=== PATIENT | male | born 1940 | race Caucasian/White ===

== ENCOUNTER 2017-09-07 16:20 | Inpatient (IN) | payer OTHER ==
[~2017-09-07] VITALS: Ht 185.4 cm; Wt 115.2 kg
[~2017-09-07 16:20] MED LIST: ACETAMINOPHEN500 M4 PO; ALBUTEROL 3 ML3 ML INH; ALBUTEROL0.09 MG/A1 INH; ATORVASTATIN CA80 MG PO; AUGMENTIN 500-1 EACH PO; AUGMENTIN 875-1 EACH PO; AZITHROMYCIN500 M3 PO; B-1100 MG PO; CELEXA40 M1 PO; CELEXA40 MG PO; CIPRO500 M1 PO; COLACE100 MG PO; COUMADIN 5 MG TA5 MG PO; CYCLOBENZAPRINE5 M2 PO; DEEP SEA44 ML NASB; DELTASONE20 MG PO; DOCUSATE SOD100 MG PO; DOCUSATE SODIU100 M3 PO; FLAGYL500 MG PO; FLONASE ALLERG9.9 ML NASB; FLUNISOLIDE25 ML NASB; FUROSEMIDE20 MG PO; FUROSEMIDE40 MG PO; GOOD NEIGHBOR P44 ML NASB; GUAIFENESIN AC473 M2 PO; HYDROPHOR TOP; IMODIUM 2 MG. CA2 MG PO; LASIX20 M1 PO; LASIX40 MG PO; LIPITOR80 M1 PO; LOPERAMIDE2 M1 PO; LOPRESSOR50 M1 PO; LOPRESSOR50 MG PO; MACROBID 100 M100 MG PO; MEDROL4 M2 PO; METOPROLOL SUCC50 MG PO; METOPROLOL TART50 MG PO; MIRTAZAPINE30 M2 PO; MIRTAZAPINE30 MG PO; NASAREL 0.200 SPRAY/ NASB; NEBULIZER; Nebulizer machine; OXYCODONE5 MG PO; PRADAXA150 M1 PO; PRADAXA150 MG PO; PRADAXA75 M1 PO; PREDNISONE 20MG20 MG PO; PREDNISONE10 M2 PO; PREDNISONE50 M1 PO; PROAIR HFA8.5 GM INH; PROVENTIL HFA6.7 GM INH; SENNA8.6 M1 PO; SENNA8.6 M3 PO; SENOKOT NATURA8.6 MG PO; SYMBICORT 80-10.2 GM INH; SYMBICORT 80/4.1 PUF INH; Senokot S PO; TRAMADOL HCL50 M1 PO; TYLENOL WITH C1 EACH PO; TYLENOL325 M1 PO; ULTRAM(MONOGRAP50 MG PO; VIAGRA50 MG PO; VIBRAMYCIN100 MG PO; VITAMIN B-121000 MC3 PO; VITAMIN B121000 MC2 PO; VITAMIN E400 IU PO; ZITHROMAX250 M2 PO; ZOFRAN ODT4 MG PO; ZOFRAN4 M1 PO
--- NOTE | 2017-09-07 16:30 | ED GENERAL ADULT ---
History of Present Illness General Chief Complaint: Psychiatric Related Complaint Stated Complaint: SI Source: patient Exam Limitations: no limitations Vital Signs & Intake/Output Vital Signs & Intake/Output Vital Signs Date Time Temp Pulse Resp B/P B/P Pulse O2 O2 Flow FiO2 Mean Ox Delivery Rate 09/07 1833 97.6 54 20 122/70 96 Room Air 09/07 1624 96.2 68 16 172/100 98 Room Air Allergies Coded Allergies: aspirin (RELATED TO BEING ON WARFARIN 07/23/16) Reconcile Medications Acetaminophen (Tylenol) 325 MG TABLET 2 TAB PO Q6H PRN PAIN (Reported) Acetaminophen 500 MG TABLET 1 TAB PO Q4-6H PRN PAIN (Reported) Albuterol Sulfate (Proair Hfa) 8.5 GM HFA.AER.AD 1 PUF INH Q6H PRN SOB ( Reported) Atorvastatin Calcium (Lipitor) 80 MG TABLET 0.5 TAB PO QPM CHOLESTEROL ( Reported) Azithromycin (Zithromax) 250 MG TABLET 1 DP PO AD BRONCHITIS 2 the first day followed by 1 for days 2-5 Budesonide/Formoterol Fumarate (Symbicort 80-4.5 Mcg Inhaler) 10.2 GM HFA.AER.AD 2 PUF INH BID COPD (Reported) Citalopram Hydrobromide (Celexa) 40 MG TABLET 0.5 TAB PO DAILY DEPRESSION ( Reported) Codeine Phosphate/Guaifenesi (Guaifenesin AC Cough Syrup) 10 MG-100 MG/5 ML LIQUID 10 ML PO Q6HR PRN COUGH Cyanocobalamin (Vitamin B-12) 1,000 MCG TABLET 1 TAB PO DAILY SUPPLEMENT ( Reported) Dabigatran Etexilate Mesylate (Pradaxa 150 MG) 150 MG CAPSULE 1 CAP PO BID BLOOD THINNER (Reported) Docusate Sodium 100 MG CAPSULE 1 CAP PO BID PRN STOOL SOFTENER (Reported) Furosemide (Lasix) 20 MG TABLET 1 TAB PO QAM DIURETIC (Reported) Methylprednisolone. (Medrol) 4 MG TAB.DS.PK 1 DP PO AD BRONCHITIS 6 on day 1 then reduce by one tablet daily until gone Metoprolol Tartrate (Lopressor) 50 MG TABLET 1.5 TAB PO BID BP (Reported) Mirtazapine 30 MG TABLET 0.5 TAB PO QHS MENTAL HEALTH/SLEEP (Reported) Sennosides (Senna) 8.6 MG TABLET 1 TAB PO BID PRN STOOL SOFTENER (Reported) Sildenafil Citrate (Viagra) 50 MG TABLET 1 TAB PO AD PRN ED (Reported) 1 hour before sexual activity Thiamine HCl (B-1) 100 MG TABLET 2 TAB PO DAILY SUPPLEMENT (Reported) Triage Note: PT STATES HE STARTED HAVING BAD THOUGHTS ABOUT DYING AGAIN AFTER HE WOKE FROM HIS NAP. +SI THOUGHTS -HI Triage Nurses Notes Reviewed? yes Onset: Abrupt Duration: hour(s): Timing: recent history Severity: severe HPI: 09/07/17 4:30 PM 77-year-old male presents to the emergency department complaining of depression with suicidal ideation. The patient was seen here earlier today as soon as he got home he began having thoughts about hurting himself. He denies any chest pain or shortness of breath at this time. Past History Travel History Traveled to [facility] past 21 day No Medical History Any Pertinent Medical History? 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 FATHER ([place], [place]). Hx Contributory? No Review of Systems Review of Systems Constitutional: Denies: fever. EENTM: Denies: visual changes. Respiratory: Reports: see HPI. Cardiovascular: Denies: chest pain. GI: Denies: abdominal pain. Genitourinary: Reports: no symptoms. Musculoskeletal: Reports: no symptoms. Skin: Reports: no symptoms. Neurological/Psychological: Reports: no symptoms. Hematologic/Endocrine: Reports: no symptoms. Immunologic/Allergic: Reports: no symptoms. Physical Exam Physical Exam General Appearance: alert, awake, anxious, mild distress Head: atraumatic, normal appearance Eyes: Bilateral: normal appearance, PERRL, EOMI. Ears, Nose, Throat: normal pharynx, normal ENT inspection Neck: normal inspection, supple Respiratory: normal breath sounds, chest non-tender, no respiratory distress Cardiovascular: irregularly irregular Peripheral Pulses: 4+ radial (R), 4+ radial (L) Gastrointestinal: soft, non-tender Back: normal range of motion Extremities: no edema Neurologic/Psych: no motor/sensory deficits, awake, alert, oriented x 3 Skin: intact, normal color, warm/dry Core Measures ACS in differential dx? No CVA/TIA Diagnosis: No Sepsis Present: No Sepsis Focused Exam Completed? No Progress Differential Diagnoses right he was psych admitted okay. Lopez considered the following diagnoses in my evaluation of the patient: [Depression, suicidal ideation, bipolar disorder,] Plan of Care: Orders Procedure Date/time Status Continuous Observation Monitor 09/07 163 Active ED CRISIS PSYCH CONSULT 09/07 1638 Active URINE DRUG SCREEN FOR ER ONLY 09/07 1629 Complete ETHANOL 09/07 1629 Complete Laboratory Tests 09/07/17 1710: Serum Alcohol < 10.0 09/07/17 1647: Urine Opiates Screen < 100.00, Methadone Screen 45, Barbiturate Screen < 60, Ur Phencyclidine Scrn < 6.00, Amphetamines Screen < 100, U Benzodiazepines Scrn < 85, Urine Cocaine Screen < 50, Urine Cannabis Screen < 5.00 Initial ED EKG: none Departure Departure Disposition: STILL A PATIENT Condition: Stable Clinical Impression Primary Impression: Depression Referrals: Carmina Euceda MD (PCP/Family) Departure Forms: Customer Survey General Discharge Information Comments Blood work and EKG were done earlier on the prior shift. Psych Admission Note Psychiatric Admission: I have seen and evaluated GUNJAN JULIO SR. I have also reviewed all the pertinent lab results and diagnostic results. GUNJAN JULIO SR will be admitted to our inpatient Psychiatric unit for treatment and care. Critical Care Note Critical Care Note Critical Care Time: 30-74 min
--- NOTE | 2017-09-07 19:19 | ED PSYCH CRISIS CONSULTATION ---
Crisis Consult Basic Assessment Date of Consult: 09/07/17 Responsible Person/Accompanied By: by himself Insurance Authorization: Insurance #1: Insurance name: MEDICARE [facility] HMO Phone number: Policy number: [id number] Group number: [id number] Authorization number: ED Provider: Patient's ED Provider: Ted Lee DO Primary Care Physician: Patient's PCP: Carmina Euceda MD PCP's Current Psychiatrist: [facility] Chief Complaint: Psychiatric Related Complaint Patient's Quote: "I had bad thoughts when I woke up from my nap" Present Illness: Pt was evaluated by crisis earlier this shift, was discharged and returned a few hours later. Upon evaluation this evening pt reports "I had a long talk with Dawna (career advisor) earlier today and we came up with a plan and I went home. I took a nap, when I work up I had bad thoughts about dying again". Although pt does not have suicidal ideation with plan, he feels unsafe being alone, and is fearful of these thoughts. Pt reports he has follow up appointment with a psychiatrist at the [facility] on 09/14/17, he states "I need medication for my anxiety, my depression meds aren't helping". Pt did not feel like he could wait and be safe for this pending appointment. Pt has been seen in the ER 9 times this month, this will be patients first CPS admission, previously in March pt was sent to [facility]. Pt is self sufficient can return home to his apartment, but seems to need help with motivation and making his outpatient appointments. The following was from pts consult 2 hours prior to returning to the ER ( Dawna Hinds) Pt is 77 yo [place] , 2x male presenting to the E.D with suicide ideation. His BAL is negative and UTOX is negative. Pt said he is not suicidal and does not feel he needs inpatient admission. This grant writer inquired what would be most helpful and he said " maybe medications." Pt could not provide reason why he did not follow up with previous 2 outpatient appointments. He said " motivation is the babin." He states that he went to "club" yesterday and drank a few beers but got home early. He took his usual medications and was able to sleep for a while but then he woke up and used his pro-air inhaler due to a mild cough. He then started having suicide ideation so he called 911. He states that he has suicide ideation when he is alone and generally feels better when he is with others. He is upset he his cat . Pt is agreeable to sign CCT release of information. Per pt he would like to follow up with outpatient provider. This grant writer educated patient and that he would benefit from outpatient which is therapuetic and clinincal. Pt said he understands he needs to be followed by a horse trekking guide in order to have medication adjustments and/or recommendations. He is agreeable to possible in home therapy. Pt will continue to attend the [facility] [employer] social club. He is estranged from his family- no contact with his 2 sisters and doesn'tknow why. He has 2 daughters and 3 sons . Pt has limited social/peer supports. He has financial problems and has to pay alimony. Patient had an 11th grade education. Was in the [place] between [place] in 1983. Has daughters in [place] and [place] and sons in [place], [place] and [place]. History of arrest for breach of peace in 2008. Denies having any guns or weapons. Has a brother who lives in [place]. He has hx of hospitalization at [facility] March 2017- thoughts of cutting himself with a knife. He has no past suicide attempts. Pt thinks onset of his depression what 5-6 years ago . No hx of engagement in outpatient services. He was sheduled to follow up with OPS 08/22 but rescheduled to 09/05 which he no show/no call. Pt said IDALMIS of alcohol was yesterday a few beers- drinks 1-2 week. He quit tobacco in 1988 and denies any illicit drug use. Dr. Daniele Garza [phone] : grant writer left message for collateral information Per collateral with Syed son: [phone]. Father is self sufficient and able to maintain his adl's. Last visit was [place]. Syed will call his father to encourage him to attend his appointments. This grant writer spoke with Cristal Burton from [facility] and referred pt for in home services. [phone] Bourne and recommends pt [facility] groups for more support and intake for [facility]. [facility] scheduled for 09/21 at 8:30am . Crisis referred pt to [facility] for in home therapy and support. Patient's Address: [address] [place] [address] Other Phone Number: Who Do You Live With? Patient/Self Family/Informants Interviewed: left a message with Kike his son that lives in [place] Allergies - Coded Allergies: aspirin (RELATED TO BEING ON WARFARIN 07/23/16) Current Medications - Scheduled Medications Atorvastatin Calcium (Lipitor) 80 MG TABLET 0.5 TAB PO QPM CHOLESTEROL ( Reported) Entered as Reported by Sherry Maurice on 01/16/16 1546 Azithromycin (Zithromax) 250 MG TABLET 1 DP PO AD BRONCHITIS #6 TAB Prescribed by Sergey Escobar on 08/19/17 Budesonide/Formoterol Fumarate (Symbicort 80-4.5 Mcg Inhaler) 10.2 GM HFA.AER.AD 2 PUF INH BID COPD (Reported) Entered as Reported by Sherry Maurice on 01/16/16 1544 Citalopram Hydrobromide (Celexa) 40 MG TABLET 0.5 TAB PO DAILY DEPRESSION ( Reported) Entered as Reported by Sherry Maurice on 01/16/16 1545 Cyanocobalamin (Vitamin B-12) 1,000 MCG TABLET 1 TAB PO DAILY SUPPLEMENT ( Reported) Entered as Reported by Sherry Maurice on 06/18/17 1555 Dabigatran Etexilate Mesylate (Pradaxa 150 MG) 150 MG CAPSULE 1 CAP PO BID BLOOD THINNER (Reported) Entered as Reported by Sherry Maurice on 01/16/16 1543 Furosemide (Lasix) 20 MG TABLET 1 TAB PO QAM DIURETIC (Reported) Entered as Reported by Sherry Maurice on 01/16/16 1544 Methylprednisolone. (Medrol) 4 MG TAB.DS.PK 1 DP PO AD BRONCHITIS #1 DP Prescribed by Chandni Burroughs on 08/16/17 Metoprolol Tartrate (Lopressor) 50 MG TABLET 1.5 TAB PO BID BP (Reported) Entered as Reported by Sherry Maurice on 01/16/16 1545 Mirtazapine 30 MG TABLET 0.5 TAB PO QHS MENTAL HEALTH/SLEEP (Reported) Entered as Reported by Sherry Maurice on 01/16/16 1548 Thiamine HCl (B-1) 100 MG TABLET 2 TAB PO DAILY SUPPLEMENT (Reported) Entered as Reported by Sherry Maurice on 06/18/17 1552 Scheduled PRN Medications Acetaminophen (Tylenol) 325 MG TABLET 2 TAB PO Q6H PRN PAIN (Reported) Entered as Reported by Danita Rodriguez on 05/13/16 0659 Acetaminophen 500 MG TABLET 1 TAB PO Q4-6H PRN PAIN (Reported) Entered as Reported by Sherry Maurice on 06/18/17 1556 Albuterol Sulfate (Proair Hfa) 8.5 GM HFA.AER.AD 1 PUF INH Q6H PRN SOB ( Reported) Entered as Reported by Sherry Maurice on 01/16/16 1548 Codeine Phosphate/Guaifenesi (Guaifenesin AC Cough Syrup) 10 MG-100 MG/5 ML LIQUID 10 ML PO Q6HR PRN COUGH #150 ML Prescribed by Sergey Escobar on 08/19/17 Docusate Sodium 100 MG CAPSULE 1 CAP PO BID PRN STOOL SOFTENER (Reported) Entered as Reported by Sherry Maurice on 01/16/16 1547 Sennosides (Senna) 8.6 MG TABLET 1 TAB PO BID PRN STOOL SOFTENER (Reported) Entered as Reported by Sherry Maurice on 01/16/16 1547 Sildenafil Citrate (Viagra) 50 MG TABLET 1 TAB PO AD PRN ED (Reported) Entered as Reported by Sherry Maurice on 06/18/17 1550 Durable Medical Equipment [NEBULIZER] #1 ASTHMA #1 Prescribed by Ted Limon MD on 01/16/16 Laboratory Results: Laboratory Tests 09/07/17 1710: Serum Alcohol < 10.0 09/07/17 1647: Urine Opiates Screen < 100.00, Methadone Screen 45, Barbiturate Screen < 60, Ur Phencyclidine Scrn < 6.00, Amphetamines Screen < 100, U Benzodiazepines Scrn < 85, Urine Cocaine Screen < 50, Urine Cannabis Screen < 5.00 Past History Past Medical History Neurological: NONE EENT: NONE Cardiovascular: AFIB, hypertension, hyperlipidemia Respiratory: asthma Gastrointestinal: NONE Hepatic: NONE Renal: NONE Musculoskeletal: NONE Psychiatric: depression Endocrine: NONE Blood Disorders: NONE Cancer(s): 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 Reason for Treatment mild depressive and anxiety symptoms Dates of Treatment March 2017, [facility] on and off for years Response to Treatment unknown/fair Diagnosis by History: Depression/ anxiety Substance Use/Abuse History Drug Use/Abuse Substances Used/Abused Yes Substance Used/Abused Alcohol First Use unknown Last Used last night How much used/taken 5 beers How often once or twice a week For how long years Route of use oral Substance Abuse Treatment Substance Abuse Treatment Past Substance Abuse [place] No Current Mental Status Mental Status Orientation: Person, Place, Situation Affect: Anxious, Lonely, Sad Speech: WNL Neuro-vegetative: Sleep Disturbance Appearance Appearance- Dress/Hygiene: hygiene is fair, appropriate Behaviors Thought Process: Irrational Thought Content: WNL Memory: WNL Insight: Poor SI/HI Risk Assessment Past Suicidal Ideation/Attempts Yes Current Suicidal Ideation/Att No Past Homicidal Ideation/Att: No Current Homicidal Ideation/Attempts No Degree of Intent: Thoughts/No Intent Danger To: Self Gravely Disabled: Lack of Insight Risk Factors: age (under 24/over 65), high anxiety/distress, SA/MH hospitalized, lives alone, male, limited support Lethality Ratin PTSD Checklist PTSD Done? 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 Bourne. pt could benefit from inpatient admission due to increase in anxiety, si thoughts and fear of being alone. Type of IP Admission: Voluntary Referrals Carmina Euceda MD (PCP/Family)
--- NOTE | 2017-09-07 20:16 | IP CRISIS DIAG ASSESS PSYCH ---
See Addendum Diagnostic Assessment Basic Assessment Insurance Authorization: Insurance #1: Insurance name: MEDICARE [employer] HMO Phone number: Policy number: [id number] Group number: [id number] Authorization number: Primary Care Physician: Patient's PCP: Carmina Euceda MD PCP's Patient's Quote: "I had bad thoughts when I woke up from my nap" Present Illness: Pt was evaluated by crisis earlier this shift, was discharged and returned a few hours later. Upon evaluation this evening pt reports "I had a long talk with Dawna (keyboarding clerk) earlier today and we came up with a plan and I went home. I took a nap, when I work up I had bad thoughts about dying again". Although pt does not have suicidal ideation with plan, he feels unsafe being alone, and is fearful of these thoughts. Pt reports he has follow up appointment with a [facility] on [facility], he states "I need medication for my anxiety, my depression meds aren't helping". Pt did not feel like he could wait and be safe for this pending appointment. Pt has been seen in the ER 9 times this month, this will be patients first CPS admission, previously in March pt was sent to [facility]. Pt is self sufficient can return home to his apartment, but seems to need help with motivation and making his outpatient appointments. The following was from pts consult 2 hours prior to returning to the ER ( Dawna Hinds) Pt is 77 yo [place] , 2x male presenting to the E.D with suicide ideation. His BAL is negative and UTOX is negative. Pt said he is not suicidal and does not feel he needs inpatient admission. This marketing writer inquired what would be most helpful and he said " maybe medications." Pt could not provide reason why he did not follow up with previous 2 outpatient appointments. He said " motivation is the babin." He states that he went to "club" yesterday and drank a few beers but got home early. He took his usual medications and was able to sleep for a while but then he woke up and used his pro-air inhaler due to a mild cough. He then started having suicide ideation so he called 911. He states that he has suicide ideation when he is alone and generally feels better when he is with others. He is upset he his cat . Pt is agreeable to sign CCT release of information. Per pt he would like to follow up with outpatient provider. This marketing writer educated patient and that he would benefit from outpatient which is therapuetic and clinincal. Pt said he understands he needs to be followed by a sap project manager in order to have medication adjustments and/or recommendations. He is agreeable to possible in home therapy. Pt will continue to attend the [employer] social club. He is estranged from his family- no contact with his 2 sisters and doesn'tknow why. He has 2 daughters and 3 sons . Pt has limited social/peer supports. He has financial problems and has to pay aliLinQMarty. Patient had an 11th grade education. Was in the [place] between [place] in [place]. Has daughters in [place] and [place] and sons in [place], [place] and [place]. History of arrest for breach of peace in 2008. Denies having any guns or weapons. Has a brother who lives in [place]. He has hx of hospitalization at [facility] March 2017- thoughts of cutting himself with a knife. He has no past suicide attempts. Pt thinks onset of his depression what 5-6 years ago . No hx of engagement in outpatient services. He was sheduled to follow up with OPS 08/22 but rescheduled to 09/05 which he no show/no call. Pt said IDALMIS of alcohol was yesterday a few beers- drinks 1-2 week. He quit tobacco in 1988 and denies any illicit drug use. Dr. Daniele Garza [phone] : marketing writer left message for collateral information Per collateral with Syed son: [phone]. Father is self sufficient and able to maintain his adl's. Last visit was . Syed will call his father to encourage him to attend his appointments. This marketing writer spoke with Cristal Burton from [facility] and referred pt for in home services. [phone] Bourne and recommends pt [facility] groups for more support and intake for OPS. OPS scheduled for 09/21 at 8:30am . Crisis referred pt to [facility] for in home therapy and support. Patient's Address: [address] [place] [address] [address] [place] [address] Other Phone Number: Who Do You Live With? Patient/Self Feel Safe Where You Live? Yes Feel Safe in Your Relationship Yes Marital Status: Do You Have Children? Yes Ages? 50,50, 44,43, 42 Primary Language? Kenyan Language(s) Spoken At Home: Kenyan Family/Informants Interviewed: left a message with Kike his son that lives in [place] Allergies - Coded Allergies: aspirin (RELATED TO BEING ON WARFARIN 07/23/16) Current Medications - Scheduled Medications Atorvastatin Calcium (Lipitor) 80 MG TABLET 0.5 TAB PO QPM CHOLESTEROL ( Reported) Entered as Reported by Sherry Maurice on 01/16/16 1546 Azithromycin (Zithromax) 250 MG TABLET 1 DP PO AD BRONCHITIS #6 TAB Prescribed by Sergey Escobar on 08/19/17 Budesonide/Formoterol Fumarate (Symbicort 80-4.5 Mcg Inhaler) 10.2 GM HFA.AER.AD 2 PUF INH BID COPD (Reported) Entered as Reported by Sherry Maurice on 01/16/16 1544 Citalopram Hydrobromide (Celexa) 40 MG TABLET 0.5 TAB PO DAILY DEPRESSION ( Reported) Entered as Reported by Sherry Maurice on 01/16/16 1545 Cyanocobalamin (Vitamin B-12) 1,000 MCG TABLET 1 TAB PO DAILY SUPPLEMENT ( Reported) Entered as Reported by Sherry Maurice on 06/18/17 1555 Dabigatran Etexilate Mesylate (Pradaxa 150 MG) 150 MG CAPSULE 1 CAP PO BID BLOOD THINNER (Reported) Entered as Reported by Sherry Maurice on 01/16/16 1543 Furosemide (Lasix) 20 MG TABLET 1 TAB PO QAM DIURETIC (Reported) Entered as Reported by Sherry Maurice on 01/16/16 1544 Methylprednisolone. (Medrol) 4 MG TAB.DS.PK 1 DP PO AD BRONCHITIS #1 DP Prescribed by Chandni Burroughs on 08/16/17 Metoprolol Tartrate (Lopressor) 50 MG TABLET 1.5 TAB PO BID BP (Reported) Entered as Reported by Sherry Maurice on 01/16/16 1545 Mirtazapine 30 MG TABLET 0.5 TAB PO QHS MENTAL HEALTH/SLEEP (Reported) Entered as Reported by Sherry Maurice on 01/16/16 1548 Thiamine HCl (B-1) 100 MG TABLET 2 TAB PO DAILY SUPPLEMENT (Reported) Entered as Reported by Sherry Maurice on 06/18/17 1552 Scheduled PRN Medications Acetaminophen (Tylenol) 325 MG TABLET 2 TAB PO Q6H PRN PAIN (Reported) Entered as Reported by Danita Rodriguez on 05/13/16 0659 Acetaminophen 500 MG TABLET 1 TAB PO Q4-6H PRN PAIN (Reported) Entered as Reported by Sherry Maurice on 06/18/17 1556 Albuterol Sulfate (Proair Hfa) 8.5 GM HFA.AER.AD 1 PUF INH Q6H PRN SOB ( Reported) Entered as Reported by Sherry Maurice on 01/16/16 1548 Codeine Phosphate/Guaifenesi (Guaifenesin AC Cough Syrup) 10 MG-100 MG/5 ML LIQUID 10 ML PO Q6HR PRN COUGH #150 ML Prescribed by Sergey Escobar on 08/19/17 Docusate Sodium 100 MG CAPSULE 1 CAP PO BID PRN STOOL SOFTENER (Reported) Entered as Reported by Sherry Maurice on 01/16/16 1547 Sennosides (Senna) 8.6 MG TABLET 1 TAB PO BID PRN STOOL SOFTENER (Reported) Entered as Reported by Sherry Maurice on 01/16/16 1547 Sildenafil Citrate (Viagra) 50 MG TABLET 1 TAB PO AD PRN ED (Reported) Entered as Reported by Sherry Maurice on 06/18/17 1550 Durable Medical Equipment [NEBULIZER] #1 ASTHMA #1 Prescribed by Ted Limon MD on 01/16/16 Lab Results: Laboratory Tests 09/07/17 1710: Serum Alcohol < 10.0 09/07/17 1647: Urine Opiates Screen < 100.00, Methadone Screen 45, Barbiturate Screen < 60, Ur Phencyclidine Scrn < 6.00, Amphetamines Screen < 100, U Benzodiazepines Scrn < 85, Urine Cocaine Screen < 50, Urine Cannabis Screen < 5.00 Toxicology Screen Completed? 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 Psychosocial History Strengths/Capabilities: able to articulate needs Physical Limitations (Interventions): unknown Psychiatric Treatment History Psych Treatment Psychiatric Treatment Yes Inpatient Treatment Yes Outpatient Treatment Yes Location of Treatment [facility] Reason for Treatment mild depressive and anxiety symptoms Dates of Treatment March 2017, [place] on and off for years Response to Treatment unknown/fair Diagnosis by History: Depression/ anxiety Risk Factors: age (under 24/over 65), high anxiety/distress, SA/MH hospitalized, lives alone, male, limited support Substance Use/Abuse History Drug Use/Abuse minimum 12mo Hx Substances Used/Abused Yes Substance Used/Abused Alcohol First Use unknown Last Used last night How much used/taken 5 beers How often once or twice a week For how long years Route of use oral Substance Abuse Treatment Substance Abuse Treatment Past Substance Abuse TX No Sexual History Sexually Active No # of partners 0 Sexual Orientation Heterosexual Sexual Concerns: Hasn't been sexually active "with a woman since 1993" Education History Highest Level of Education: did not complete HS Preferred Learning Style: experiential Current Mental Status Mental Status Orientation: Person, Place, Situation Affect: Anxious, Lonely, Sad Speech: WNL Neuro-vegetative: Sleep Disturbance Appearance Appearance- Dress/Hygiene: hygiene is fair, appropriate Behaviors Thought Process: Irrational Thought Content: WNL Memory: WNL Insight: Poor SI/HI Risk Assessment - Minimum 6mo History- Past Suicidal Ideation/Attempts Yes Current Suicidal Ideation/Att No Past Homicidal Ideation/Att: No Current Homicidal Ideation/Attempts No Degree of Intent: Thoughts/No Intent Danger To: Self Gravely Disabled: Lack of Insight Risk Factors: age (under 24/over 65), high anxiety/distress, SA/MH hospitalized, lives alone, male, limited support Lethality Ratin Needs/Init TX Plan/Goals: Med adjustment Elminate fear and thoughts of self harm follow up with outpatient recommendations AUDIT-C Questionnaire: AUDIT-C Questionnaire: Response Value ETOH use in the past year 2-4 times/week 3 # drinks typical/day 5 or 6 2 6 or > drinks per occasion Less than monthly 1 Total 6 DSM5/PS Stressors/Medical Prob Diagnosis' (DSM 5, Stressors, Medical): Unspecified Anxiety D/O F41.9 MDD, recurrent mild F33.0 F10.10 Alcohol use D/O mild possible COPD, hypertension, atrial fibrilation family stress/ financial/ limited resources Current GAF: 28
[2017-09-07 22:13] VITALS: BP 136/80
[2017-09-07 22:43] VITALS: BP 136/80
[2017-09-08] VITALS (12 sets, daily range): BP systolic 106–174; BP diastolic 52–80
--- NOTE | 2017-09-08 12:29 | CPS PROVIDER INIT ASMT PSYCH ---
Psychiatric Admission Paper Box Cutter's Note Reviewed: Yes Patient Seen and Examined: Yes Identifying Information: The patient is a 77-year-old twice white male with past history of depression and likely possible alcohol use disorder, who presented to the ER twice on 09/07/17. He was admitted to [facility] on a voluntary basis on . He is known to me from Crisis visit on 06/18/17. Chief Complaint: Per crisis note, "upon evaluation... pt reports 'I had a long talk with Dawna (stacker driver) earlier today and we came up with a plan and I went home. I took a nap, when I work up I had bad thoughts about dying again.' Although pt does not have suicidal ideation with plan, he feels unsafe being alone, and is fearful of these thoughts. Reaction to Hospitalization: Feels okay about being here. History of Present Illness Onset of Illness: Chronic mood problems, on Celex, multiple ER visits, well-known to crisis workers. Circumstances Leading to Admission: 2 ER visits in 1 day. Fearful of dying. Loneliness after recent family time for the holidays. Episodic alcohol use. Reports "twice I started having bad thoughts where I live, about dying. " Reports he had SI last March and June. This time, it was more a fear of dying. Reports he was discharged from the ER yesterday afternoon, went home, took his afternoon/evening medications with coffee, then lay down. He tried to sleep but couldn't sleep. Starting having bad thoughts about dying again. Went to his neighbor, who drove him here. Called multiple family members on . Son, Michael, brought patient to son AXEL's house on . "We talked. Everything was beautiful." Then went home and felt lonely. Problem(s) Justifying Need for Admission: Anxiety/sadness. Thoughts about dying. Other HPI: Case and treatment plan discussed in team meeting. Staff reports that the patient is denying SI. Settled in. BP 174/80. Sleep: no good, uses ?Remeron 7.5 mg qhs. Appetite: very good. Energy: very good. Reports tolerating current medications well, without complaint. Past Psychiatric History Past Diagnosis(es)- if any: Major depression, recurrent, severe. Alcohol use disorder. Past Precipitating Factors- if any: Loneliness/social isolation. Alcohol use. - Include inpatient and outpatient treatment Treatment History: Has appointment at [facility] on 09/14/17 at 9 am (not with Dr. Garza). Inpatient tx: twice at [facility]. History of Suicide Attempts or Gestures Denies suicide attempts. Substance Abuse History: Quit tobacco in 1988. Hx beer drinker all his life. Last alcohol use on 12 oz beers x6, previous use was 09/02/17. Denies drug use. Allergies: Coded Allergies: aspirin (RELATED TO BEING ON WARFARIN 07/23/16) Home Med List: Lipitor 40 mg daily Vit B12 1000 mcg daily Celexa 20 mg daily Remeron 7.5 vs 15 mg qhs Lasix 20 mg daily Colace 100 mg bid Symbicort 80/4.5 2 puffs b.i.d. Dabigatran 150 mg b.i.d. Metoprolol 75 mg b.i.d. 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 Past History Medical History Neurological: NONE EENT: NONE Cardiovascular: AFIB, hypertension, hyperlipidemia Respiratory: asthma Gastrointestinal: NONE Hepatic: NONE Renal: NONE Musculoskeletal: NONE Psychiatric: depression Endocrine: NONE Blood Disorders: NONE Cancer(s): NONE PETROPHYSICAL ENGINEER/Reproductive: NONE History of MRSA: No History of VRE: No History of CDIFF: No Isolation History: Standard Influenza Vaccine: 09/08/17 Surgical History Surgical History: left neprectomy Psychiatric Family/Social Hx Family History Psychiatric Illness: None. Substance Use: Father was a drinker. Suicides: Father may have suicided at age 64. Reportedly pulled out his IV line at [facility]. Social History Living Situation: Lives alone. Significant Relationships (family/friends): Has a lady friend, Kira. Patient is twice . Has daughters in [place] and [place] and sons in [place], [place] and [place]. Has a brother who lives in [place]. Used to go to [email or web address] in [place] and is considering resuming. Active with [employer] in [place]. Active with [employer] in [place]. Education: 11th grade education. Vocation/Occupation: Was in the [place] [id number]. 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 Legal: Hx of arrest for breach of peace in 2008. Healthly Behaviors Screening Tobacco Screening Tobacco Use from ED Docu: Quit >30 days ago - If tobacco counseling indicated - the following topics are required. - #1 Recognizing dangerous situations. - #2 Coping Skills. - #3 Basic information about quitting. Status of Tobacco Cessation Counseling: Not Applicable Cessation Med Status Not Applicable Alcohol Screening - ETOH screen POS if BAL >=80 or Audit-C>= M4/F3 Audit-C Score from Diag Assess: 6 Blood Alcohol Level: Laboratory Tests 09/07 1710 Toxicology Serum Alcohol (<10 MG/DL) < 10.0 Alcohol Use Screening Results: Pos per Audit C &/or BAL - If ETOH counseling indicated - the following topics are required. - #1 Express concern about the patient's - drinking at unhealthy levels, include informing - of national norms for moderate drinking: - men <= 14 drinks/week, max 4 drinks/occasion - women <= 7 drinks/week, max 3 drinks/occasion - #2 Providing feedback, including linking alcohol to - negative physical effects (liver injury, hypertension) - negative emotional effects (relationship problems and - depression) - negative occupational consequences (reduced work - performance) - #3 Advising the patient to abstain from alcohol or - to drink below national norms for moderate drinking - (as listed above). Status of ETOH Use Counseling: #1, #2 AND #3 Completed. Metabolic Screening - Screen if on a Neuroleptic Medication - Metabolic screening should include: - Blood Pressure, BMI, Glucose or Hgb A1c, & a - Lipid profile from within the past 365 days. Metabolic Screening ([x]) Not Applicable, patient not on a neuroleptic. OR () Patient on a neuroleptic(s) . Enter below results for Hemoglobin A1C, and lipid panel if obtained during the last 365 days. BMI: 33.500 Blood Pressure: 113/59 Laboratory Results From [facility] (If applicable): Exam and Plan Mental Status Examination Ambulation Status: Ambulatory, currently sitting in a chair. Appearance: Dresswed in a shirt and blue paper scrub pants. Attitude towards examiner: Very pleasant, calm, polite and cooperative. Psychomotor activity: No psychomotor agitation/retardation. Behavior: WNL. Quality of speech: Normal in volume, rate and tone. Affect: Calm and blunted. Mood: Good, very good, but room here was cold last night. Sad 1-10/21. Anxiety 5-02/18. Denies feeling hopeless, helpless, worthless or guilty. Suicidal Ideation: Denies active and passive SI. Homicidal Ideation: Denies HI. Hallucinations: Denies AH and VH. Paranoid/Delusional Material: Denies PI and magical shankar. Difficulties with thought organization: There is no apparent thought disorder or delusions. Insight: Limited. Judgment: Limited. Orientation: Ox3. Cognition: Grossly intact. Memory Function: Grossly intact. Estimate of intellectual functioning: Average. Assets/Strengths Patient Identified Assets/Strengths: Has a good memory. Impression/Plan Impression and Plan: Patient is a frequent ER visitor who came twice yesterday. Feeling lonely in the context of recent holidays, episodic alcohol use and chronic depression. - Include all active medical diagnosis that require tx DSM 5 Diagnosis(es): Major depression, recurrent, severe. Alcohol use disorder. Hypertension. Asthma. COPD. Atrial fibrillation. Hypercholesterolemia. Overweight. Hx kidney tumor surgery. - Initial Tx Plan for Active Psych & Medical Conditions Treatment Plan: The patient will be monitored on the unit for safety and mood disorder. Additional information is needed from collaterals. Patient agrees to an increase in Celexa dose to 30 mg daily. 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 Patient would benefit from increased social supports/coping skills to help him combat loneliness. He stated: "when I'm around people, I'm alright. When I'm by myself, I'm no good." - Factors that would help patient function - in a less restrictive setting. Factors: Improved emotional stability. Anxiety about improved.
--- NOTE | 2017-09-08 15:16 | History & Physical ---
General Information and HPI MD Statement: I have seen and personally examined GUNJAN JULIO and documented this H&P. The patient is a 77 year old M who presented with a patient stated chief complaint of [ depression]. Source of Information: patient Exam Limitations: no limitations History of Present Illness: 77 yr old male with pmh of htn, hld and afib on pradaxa , depression is being admitted to [facility] for depression and suicidal ideations. Pt lives alone at home and does not have much social support. Goes to the club once or twice a week and drinks 6 beers 1-2 times/ week. Pt f/u with PCP at [place]- dr Euceda. Pt quit smoking in 1988 and was smoking 1 1/2 PPD for about 30 years. Allergies/Medications Allergies: Coded Allergies: aspirin (RELATED TO BEING ON WARFARIN 07/23/16) Home Med list Acetaminophen (Tylenol) 325 MG TABLET 2 TAB PO Q6H PRN PAIN (Reported) Acetaminophen 500 MG TABLET 1 TAB PO Q4-6H PRN PAIN (Reported) Albuterol Sulfate (Proair Hfa) 8.5 GM HFA.AER.AD 1 PUF INH Q6H PRN SOB ( Reported) Atorvastatin Calcium (Lipitor) 80 MG TABLET 0.5 TAB PO QPM CHOLESTEROL ( Reported) Azithromycin (Zithromax) 250 MG TABLET 1 DP PO AD BRONCHITIS 2 the first day followed by 1 for days 2-5 Budesonide/Formoterol Fumarate (Symbicort 80-4.5 Mcg Inhaler) 10.2 GM HFA.AER.AD 2 PUF INH BID COPD (Reported) Citalopram Hydrobromide (Celexa) 40 MG TABLET 0.5 TAB PO DAILY DEPRESSION ( Reported) Codeine Phosphate/Guaifenesi (Guaifenesin AC Cough Syrup) 10 MG-100 MG/5 ML LIQUID 10 ML PO Q6HR PRN COUGH Cyanocobalamin (Vitamin B-12) 1,000 MCG TABLET 1 TAB PO DAILY SUPPLEMENT ( Reported) Dabigatran Etexilate Mesylate (Pradaxa 150 MG) 150 MG CAPSULE 1 CAP PO BID BLOOD THINNER (Reported) Docusate Sodium 100 MG CAPSULE 1 CAP PO BID PRN STOOL SOFTENER (Reported) Furosemide (Lasix) 20 MG TABLET 1 TAB PO QAM DIURETIC (Reported) Methylprednisolone. (Medrol) 4 MG TAB.DS.PK 1 DP PO AD BRONCHITIS 6 on day 1 then reduce by one tablet daily until gone Metoprolol Tartrate (Lopressor) 50 MG TABLET 1.5 TAB PO BID BP (Reported) Mirtazapine 30 MG TABLET 0.5 TAB PO QHS MENTAL HEALTH/SLEEP (Reported) Sennosides (Senna) 8.6 MG TABLET 1 TAB PO BID PRN STOOL SOFTENER (Reported) Sildenafil Citrate (Viagra) 50 MG TABLET 1 TAB PO AD PRN ED (Reported) 1 hour before sexual activity Thiamine HCl (B-1) 100 MG TABLET 2 TAB PO DAILY SUPPLEMENT (Reported) Past History Travel History Traveled to [place] past 21 day No Medical History Neurological: NONE EENT: NONE Cardiovascular: AFIB, hypertension, hyperlipidemia Respiratory: asthma Gastrointestinal: NONE Hepatic: NONE Renal: NONE Musculoskeletal: NONE Psychiatric: depression Endocrine: NONE Blood Disorders: NONE Cancer(s): NONE 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 FATHER ([place], [place]). Psychosocial History Services at Home: None ETOH Use: denies use Illicit Drug Use: denies illicit drug use Review of Systems Review of Systems Constitutional: Denies: fever. EENTM: Denies: eye pain. Cardiovascular: Denies: chest pain, palpitations. Respiratory: Denies: cough, short of breath. GI: Denies: abdominal pain. Musculoskeletal: Denies: back pain. Neurological/Psychological: Reports: depressed. Exam & Diagnostic Data Last 24 Hrs of Vital Signs/I&O Vital Signs Date Time Temp Pulse Resp B/P B/P Pulse O2 O2 Flow FiO2 Mean Ox Delivery Rate 09/08 1241 64 113/59 09/08 1209 64 113/59 09/08 1012 56 106/52 09/08 0746 96.1 84 174/80 09/08 0742 96.1 84 147/80 09/08 0225 97.1 71 174/76 09/07 2243 96.2 63 136/80 09/073 96.2 63 136/80 09/07 2213 96.2 63 136/80 09/07 2130 97.2 57 16 124/60 97 Room Air 09/07 1833 97.6 54 20 122/70 96 Room Air 09/07 1624 96.2 68 16 172/100 98 Room Air Intake & Output 09/08 1600 09/08 0800 09/08 0000 Intake Total Output Total Balance Patient 115.212 kg Weight Weight Reported by Patient Measurement Method Physical Exam General Appearance Alert, Oriented X3 Skin No Rashes HEENT Atraumatic, EOMI Cardiovascular Regular Rate, Normal S1, Normal S2 Lungs Clear to Auscultation, Normal Air Movement Abdomen Normal Bowel Sounds, No Tenderness Neurological Exam Findings: Normal Gait, Normal Speech Cranial Nerves II through XII: intact Assessment/Plan Assessment: Depression with suicidal ideation- plan per psychiatry. HTN - cont on metoprolol at home dose HLD- cont on lipitor at home dose AFIb- cont on metoprolol and pradaxa. d/w pt the care plan. Encouraged pt to quit drinking . As Ranked By This Provider Problem List: 1. Atrial fibrillation 2. Depression Miscellaneous Miscellaneous Documentation Attending Case Discussed With: Adrian Bourne MD Primary Care Physician: Carmina Euceda MD Patient sees these Specialists none Level of Patient Care: BRAIN Mendez
--- NOTE | 2017-09-08 16:51 | SOCIAL WORKER SOCIAL HX PSYCH ---
Social History Basic Assessment Insurance Authorization: Insurance #1: Insurance name: [employer] [facility] Phone number: Policy number: [id number] Group number: [id number] Authorization number: Curr Source of Income/Entitlements: [facility], [place] [address] Primary Care Physician: Patient's PCP: Carmina Euceda MD PCP's Present Problem: Patient's Quote: "I had bad thoughts when I woke up from my nap" Present Illness: Pt was evaluated by crisis earlier this shift, was discharged and returned a few hours later. Upon evaluation this evening pt reports "I had a long talk with Dawna (education courses sales representative) earlier today and we came up with a plan and I went home. I took a nap, when I work up I had bad thoughts about dying again". Although pt does not have suicidal ideation with plan, he feels unsafe being alone, and is fearful of these thoughts. Pt reports he has follow up appointment with a psychiatrist at the [facility] on 09/14/17, he states "I need medication for my anxiety, my depression meds aren't helping". Pt did not feel like he could wait and be safe for this pending appointment. Pt has been seen in the ER 9 times this month, this will be patients first CPS admission, previously in March pt was sent to [facility]. Pt is self sufficient can return home to his apartment, but seems to need help with motivation and making his outpatient appointments. The following was from pts consult 2 hours prior to returning to the ER ( Dawna Hinds) Pt is 77 yo [place] , 2x male presenting to the E.D with suicide ideation. His BAL is negative and UTOX is negative. Pt said he is not suicidal and does not feel he needs inpatient admission. This literary writer inquired what would be most helpful and he said " maybe medications." Pt could not provide reason why he did not follow up with previous 2 outpatient appointments. He said " motivation is the babin." He states that he went to "club" yesterday and drank a few beers but got home early. He took his usual medications and was able to sleep for a while but then he woke up and used his pro-air inhaler due to a mild cough. He then started having suicide ideation so he called 911. He states that he has suicide ideation when he is alone and generally feels better when he is with others. He is upset he his cat . Pt is agreeable to sign CCT release of information. Per pt he would like to follow up with outpatient provider. This literary writer educated patient and that he would benefit from outpatient which is therapuetic and clinincal. Pt said he understands he needs to be followed by a materials technician in order to have medication adjustments and/or recommendations. He is agreeable to possible in home therapy. Pt will continue to attend the [employer] social club. He is estranged from his family- no contact with his 2 sisters and doesn'tknow why. He has 2 daughters and 3 sons . Pt has limited social/peer supports. He has financial problems and has to pay alimony. Patient had an 11th grade education. Was in the [place] between 1959 in 1983. Has daughters in [place] and [place] and sons in [place], [place] and [place]. History of arrest for breach of peace in 2008. Denies having any guns or weapons. Has a brother who lives in [place]. He has hx of hospitalization at [facility] March 2017- thoughts of cutting himself with a knife. He has no past suicide attempts. Pt thinks onset of his depression what 5-6 years ago . No hx of engagement in outpatient services. He was sheduled to follow up with OPS 08/22 but rescheduled to 09/05 which he no show/no call. Pt said IDALMIS of alcohol was yesterday a few beers- drinks 1-2 week. He quit tobacco in 1988 and denies any illicit drug use. Dr. Daniele Garza [phone] : literary writer left message for collateral information Per collateral with Syed son: [phone]. Father is self sufficient and able to maintain his adl's. Last visit was . Syed will call his father to encourage him to attend his appointments. This literary writer spoke with Cristal Burton from [facility] and referred pt for in home services. [phone] Bourne and recommends pt [facility] groups for more support and intake for OPS. OPS scheduled for 09/21 at 8:30am . [facility] and support. Today at time of Social History interview, patient denies SI and reports depression of 2 and anxiety of 5-6 on a scale of 0 to 10, 10 being most severe. Primary Language? Anguillan Language(s) Spoken At Home: [place] Living Situation Rents or Owns Home? rents Other Living Arrangement: N/A Residential Care/Treatment Fac N/A Feel Safe Where You Are Living Yes Feel Safe in Relationships? Yes Comments: Patient rents a condominium and states that he does not get along with some of the neighbors because they are younger. Allergies - Coded Allergies: aspirin (RELATED TO BEING ON WARFARIN 07/23/16) Current Medications - Scheduled Medications Atorvastatin Calcium (Lipitor) 80 MG TABLET 0.5 TAB PO QPM CHOLESTEROL ( Reported) Entered as Reported by Sherry Maurice on 01/16/16 154 Last Taken: 09/07/17 Azithromycin (Zithromax) 250 MG TABLET 1 DP PO AD BRONCHITIS #6 TAB Prescribed by Sergey Escobar on 08/19/17 Last Taken: At an unknown date and time Budesonide/Formoterol Fumarate (Symbicort 80-4.5 Mcg Inhaler) 10.2 GM HFA.AER.AD 2 PUF INH BID COPD (Reported) Entered as Reported by Sherry Maurice on 01/16/16 154 Last Taken: 09/07/17 Citalopram Hydrobromide (Celexa) 40 MG TABLET 0.5 TAB PO DAILY DEPRESSION ( Reported) Entered as Reported by Sherry Maurice on 01/16/16 1545 Last Taken: 09/07/17 Cyanocobalamin (Vitamin B-12) 1,000 MCG TABLET 1 TAB PO DAILY SUPPLEMENT ( Reported) Entered as Reported by Sherry Maurice on 06/18/17 1555 Last Taken: 09/07/17 Dabigatran Etexilate Mesylate (Pradaxa 150 MG) 150 MG CAPSULE 1 CAP PO BID BLOOD THINNER (Reported) Entered as Reported by Sherry Maurice on 01/16/16 1543 Last Taken: 09/07/17 Furosemide (Lasix) 20 MG TABLET 1 TAB PO QAM DIURETIC (Reported) Entered as Reported by Sherry Maurice on 01/16/16 154 Last Taken: 09/07/17 Methylprednisolone. (Medrol) 4 MG TAB.DS.PK 1 DP PO AD BRONCHITIS #1 DP Prescribed by Chandni Burroughs on 08/16/17 Last Taken: At an unknown date and time Metoprolol Tartrate (Lopressor) 50 MG TABLET 1.5 TAB PO BID BP (Reported) Entered as Reported by Sherry Maurice on 01/16/16 1545 Last Taken: 09/07/17 Mirtazapine 30 MG TABLET 0.5 TAB PO QHS MENTAL HEALTH/SLEEP (Reported) Entered as Reported by Sherry Maurice on 01/16/16 1548 Last Taken: 09/06/17 Thiamine HCl (B-1) 100 MG TABLET 2 TAB PO DAILY SUPPLEMENT (Reported) Entered as Reported by Sherry Maurice on 06/18/17 1552 Last Taken: 09/07/17 Scheduled PRN Medications Acetaminophen (Tylenol) 325 MG TABLET 2 TAB PO Q6H PRN PAIN (Reported) Entered as Reported by Danita Rodriguez on 05/13/16 0659 Last Taken: At an unknown date and time Acetaminophen 500 MG TABLET 1 TAB PO Q4-6H PRN PAIN (Reported) Entered as Reported by Sherry Maurice on 06/18/17 1556 Last Taken: At an unknown date and time Albuterol Sulfate (Proair Hfa) 8.5 GM HFA.AER.AD 1 PUF INH Q6H PRN SOB ( Reported) Entered as Reported by Sherry Maurice on 01/16/16 154 Last Taken: At an unknown date and time Codeine Phosphate/Guaifenesi (Guaifenesin AC Cough Syrup) 10 MG-100 MG/5 ML LIQUID 10 ML PO Q6HR PRN COUGH #150 ML Prescribed by Sergey Escobar on 08/19/17 Last Taken: At an unknown date and time Docusate Sodium 100 MG CAPSULE 1 CAP PO BID PRN STOOL SOFTENER (Reported) Entered as Reported by Sherry Maurice on 01/16/16 154 Last Taken: 09/07/17 Sennosides (Senna) 8.6 MG TABLET 1 TAB PO BID PRN STOOL SOFTENER (Reported) Entered as Reported by Sherry Maurice on 01/16/16 1547 Last Taken: 09/07/17 Sildenafil Citrate (Viagra) 50 MG TABLET 1 TAB PO AD PRN ED (Reported) Entered as Reported by Sherry Maurice on 06/18/17 1550 Durable Medical Equipment [NEBULIZER] #1 ASTHMA #1 Prescribed by Ted Limon MD on 01/16/16 Consequences of Psych Med Use: N/A Comments: None Past History Past Medical History Neurological: NONE EENT: NONE Cardiovascular: AFIB, hypertension, hyperlipidemia Respiratory: asthma Gastrointestinal: NONE Hepatic: NONE Renal: NONE Musculoskeletal: NONE Psychiatric: depression Endocrine: NONE Blood Disorders: NONE Cancer(s): NONE DIRECTOR 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 DCF Involvement? No Mother's Age (Current/): 0 () Relationship w/Mother: "Good" Father's Age (Current/): 0 () Relationship w/Father: "Good" Any Sibling(s)? Yes Sibling's Gender(s)/Age(s): male Sibling 1:, female Sibling 2:, female Sibling 3: (80,76 & 72) Relationship w/Sibling(s): "Good" Relationship w/Friends: "I have some friends at [employer]" Family Psych/Sub Abuse/Add Hx: Patient states father drank beer on a regular basis, but no diagnosed issues. Other Comments: N/A Abuse/Trauma History Trauma History/Current Trauma: Denies History of Trauma/Abuse Treatment? No Abuse/Trauma Treatment: N/A Legal History Legal Guardian/Address/Phone: N/A Current Legal Status: none Pending Court Dates: None Have you ever been arrested Yes Number of Arrests: 1 Hx of Juvenile Legal Charges? No Hx of Adult Legal Charges? Yes If Yes: misdemeanor List/Date Most Recent Lgl Chgs: 2009 Chgs/Dts/Incarcerations/Sentnc 2009-Public Disturbance Civil Proceedings: None Domestic Relations Court: N/A Child Protective Serv Involvmnt N/A Information Technology Security Manager denies Psychosocial History Primary Support System: son Strengths/Capabilities: Able to articulate needs Weaknesses: Patient has lack of positive coping skills to address recent losses in life. Physical Limitations (Interventions): unknown Last Physical: 2015 History of Seizures? No History of Blackouts? No ADL Limitations: None [place]/Social/Peer Relations Patient states he has friends at [employer] Meaningful Activities: Golf Childhood Shinto: Gnosticism Current Quaker Affiliation: Gnosticism Is Spirituality Important to You? 'Yes" Patient's Ethnicity: Wolof Cultural/Ethnic Issues: None noted Are There Developmental Issues? No Milestones Achieved: fine motor, gross motor Psychiatric Treatment History Psych Treatment Inpatient Treatment Yes Outpatient Treatment Yes Location of Treatment [facility] Reason for Treatment mild depressive and anxiety symptoms [facility] Response to Treatment unknown/fair Precipitating Factors: Loss of friends in life and a pet Current Raw Silk Grader: None noted Treatment of Prior Episodes: [facility] and [facility] Diagnosis: Depression/ anxiety Psychodynamic Issues: Lack of social network Risk Factors: age (under 24/over 65), high anxiety/distress, SA/MH hospitalized, lives alone, male, limited support Substance Use/Abuse History Drug Use/Abuse Substance Used/Abused Alcohol First Use unknown Last Used last night How much used/taken 5 beers How often once or twice a week For how long years Route of use oral Have Had Periods of Sobriety? Yes Explain: Patient drinks once or twice a week, not acknowledging a substance abuse issue. Relapse History? No (N/A) Explain: Patient drinks once or twice a week, not acknowledging a substance abuse issue. Have You Ever Attended AA? No Do You Attend AA Currently? No Do You Have a Sponsor? No Other Community Resources Used: [place], [employer] Symptoms of Use: Drinks etoh twice a week Substance Abuse Treatment Substance Abuse Treatment Inpatient Treatment No Outpatient Treatment No Location of Treatment N/A Reason for Treatment N/A Dates of Treatment N/A Response to Treatment N/A Comments: None Sexual History Sexually Active No # of partners 0 Sexual Orientation Heterosexual Sexual Concerns: Hasn't been sexually active "with a woman since 1993" Education History Highest Level of Education: did not complete HS Highest Grade Completed: 11th grade Vocational Year Completed: None Number of College Years: 0 College Degree/Major: N/A Other Degree(s): N/A Preferred Learning Style: experiential HX of Learning Difficulties: None reported Barriers to Learning: None reported Special Communication Needs: None reported Employment History Employment Retired Not in Labor Force: Retired Vocation/Occupational Hx: [employer] from [id number] No. of Jobs in Last 5 Years: 0 Attendance: Retired for past 5 years+ Performance: Good Comments: Patient retired History Have You Been in The ? Yes If Yes, Explain: Patient served in the [employer] from 1959 to 1983 and is currently retired receiving benefits Type of Discharge: General Date of Discharge: 1983 Current Mental Status Mental Status Orientation: Person, Place, Situation Affect: Appropriate Speech: WNL Neuro-vegetative: Sleep Disturbance Appearance Appearance- Dress/Hygiene: Hygiene is fair, appropriate Behaviors Thought Process: WNL Thought Content: WNL Memory: WNL Insight: Fair SI/HI Risk Assessment Past Suicidal Ideation/Attempts Yes Current Suicidal Ideation/Att No Past Homicidal Ideation/Att: No Current Homicidal Ideation/Attempts No Degree of Intent: Thoughts/No Intent Danger To: Self Gravely Disabled: Lack of Insight Risk Factors: Age (under 24 or over 65), Chronic/serious med cond, / Hospitalization(s), Lives alone, Male Lethality Ratin - Conclusion and Recommendations for treatment - and discharge planning Summary: Patient could benefit from inpatient admission due to increase in anxiety, SI thoughts and fear of being alone. Patient to undergo medication evaluation, group therapy, family meeting and discharge planning to build supports in community. [facility]
--- NOTE | 2017-09-08 16:54 | SOCIAL WORKER PROG NOTE PSYCH ---
See Addendum Social Work Progress Note Progress Note This comic book writer received call from Shannon Nash at the [facility] stating that she was responding to a call she received regarding the patient's insurance. She recommended that this comic book writer contact [facility] regarding authorization as she was unable to provide one. Shannon provided her call back number, and this comic book writer left a vm for her at 10:40am. 9:35am This comic book writer met with patient. He reported that he had been treated at four times for depression and anxiety. He stated that he lives alone and is independent, listing various activities that he is able to do such as cooking, cleaning, taking his medications and ADL's. Patient shared that his cat, "Michelle Fragoso," unexpectedaly on . He reported increasing anxiety and depression, stating, "I feel like I was going to ." Patient stated that he had come to the hospital ER twice due to his anxiety, fearing that he would . He stated that [facility] due to his [facility]. Patient denied SI and identified his family as protective factors. He was agreeable to a family meeting with his son, Kike, who this comic book writer will attempt to reach later today. He denied HI/AH/VH. He agreed to immediately inform nursing/staff should he feel unsafe or have other concerns. Patient reported that he had difficulty sleeping last night due to being cold "even though I had two blankets." This was relayed to nursing stated. Patient was encouraged to speak with nursing about this as well. Patient was actively engaged, spontaneous and appropriate during this meeting. He denied SI/HI/AH/VH and agreed to immediately inform staff should he feel unsafe or have other concerns. 1:29pm This comic book writer left clinical for Deanne ([phone], ext. [phone]) - concurrent review - requesting continued authorization for inpatient stay. This comic book writer received a vm from Deanne who authorized additional inpatient stay with the next review due on 09/12/17, auth number [id number]. 4:53pm This comic book writer attempted to reach patient's son, Kike, by phone ([phone]) in interest of scheduling a family meeting. A call back number was provided.
[2017-09-09] VITALS (8 sets, daily range): BP systolic 114–138; BP diastolic 54–62
--- NOTE | 2017-09-09 11:14 | CP SOUTH PROGRESS NOTE PSYCH ---
Psych (Inpt) Progress Note Progress Note Include the following elements, when applicable: Involvement in the active treatment of the patient with behavioral observations of the patient and the patient's response to the treatment. Review of the ongoing treatment process in the context of the treatment plan. Indication of how multi-disciplinary staff members are carrying out the treatment plan. Plans for future interventions and recommendations for revision of the treatment plan. Liaison with other physicians/providers. Progress Note: Case discussed with RN. She reports that the patient is friendly. Made his bed. CIWAs are stable so we will reduce frequency to q4h while awake. Lab Hemoglobin A1c 7.3 % H 09/07/17 1710 We will request an endocrine consult for elevated A1c. Patient seen at 10:28 a.m. Feels "not too bad, thank you, slept better." Has no complaints. Affect is calm and blunted. Denies hx of DM. I informed him of endocrine consult being requested. Mood is good. Sad 4-5/10. Anxiety 3-4/10. Denies feeling hopeless, helpless, worthless or guilty. Denies active and passive SI. Denies having bad thoughts. Denies HI, AH, VH and PI. Reports appetite is very good and energy is good. Plans to address loneliness by renewing at [facility]. Tolerating medications well, including increase in Celexa dose. IMPRESSION: Slow progress. Continue present treatment plan.
--- NOTE | 2017-09-09 12:27 | Cons- Endocrinology ---
General Information and HPI Consulting Request Date of Consult: 09/09/17 Requested By: Hedy Reason for Consult: management of newly diagnosed diabetes type 2 Source of Information: patient Exam Limitations: no limitations History of Present Illness: Patient has had history of atrial fibration, hypertension, dyslipidemia, left renal cancer s/p resection, was admitted for major depression. Blood work showed HbA1c of 7.3% which suggests of diabetes type 2. Since he has been in hospital, he has been feeling better. He gained 10 pounds lately. Allergies/Medications Allergies: Coded Allergies: aspirin (RELATED TO BEING ON WARFARIN 07/23/16) Home Med List: Acetaminophen (Tylenol) 325 MG TABLET 2 TAB PO Q6H PRN PAIN (Reported) Acetaminophen 500 MG TABLET 1 TAB PO Q4-6H PRN PAIN (Reported) Albuterol Sulfate (Proair Hfa) 8.5 GM HFA.AER.AD 1 PUF INH Q6H PRN SOB ( Reported) Atorvastatin Calcium (Lipitor) 80 MG TABLET 0.5 TAB PO QPM CHOLESTEROL ( Reported) Azithromycin (Zithromax) 250 MG TABLET 1 DP PO AD BRONCHITIS 2 the first day followed by 1 for days 2-5 Budesonide/Formoterol Fumarate (Symbicort 80-4.5 Mcg Inhaler) 10.2 GM HFA.AER.AD 2 PUF INH BID COPD (Reported) Citalopram Hydrobromide (Celexa) 40 MG TABLET 0.5 TAB PO DAILY DEPRESSION ( Reported) Codeine Phosphate/Guaifenesi (Guaifenesin AC Cough Syrup) 10 MG-100 MG/5 ML LIQUID 10 ML PO Q6HR PRN COUGH Cyanocobalamin (Vitamin B-12) 1,000 MCG TABLET 1 TAB PO DAILY SUPPLEMENT ( Reported) Dabigatran Etexilate Mesylate (Pradaxa 150 MG) 150 MG CAPSULE 1 CAP PO BID BLOOD THINNER (Reported) Docusate Sodium 100 MG CAPSULE 1 CAP PO BID PRN STOOL SOFTENER (Reported) Furosemide (Lasix) 20 MG TABLET 1 TAB PO QAM DIURETIC (Reported) Methylprednisolone. (Medrol) 4 MG TAB.DS.PK 1 DP PO AD BRONCHITIS 6 on day 1 then reduce by one tablet daily until gone Metoprolol Tartrate (Lopressor) 50 MG TABLET 1.5 TAB PO BID BP (Reported) Mirtazapine 30 MG TABLET 0.5 TAB PO QHS MENTAL HEALTH/SLEEP (Reported) Sennosides (Senna) 8.6 MG TABLET 1 TAB PO BID PRN STOOL SOFTENER (Reported) Sildenafil Citrate (Viagra) 50 MG TABLET 1 TAB PO AD PRN ED (Reported) 1 hour before sexual activity Thiamine HCl (B-1) 100 MG TABLET 2 TAB PO DAILY SUPPLEMENT (Reported) Review of Systems Review of Systems Constitutional: Reports: see HPI. Cardiovascular: Denies: chest pain. Respiratory: Denies: short of breath. GI: Denies: abdominal pain. Genitourinary: Denies: dysuria. Musculoskeletal: Denies: back pain. Hematologic/Endocrine: Denies: polyuria, polydipsia. Past History Travel History Traveled to [place] past 21 day No Medical History Neurological: NONE EENT: NONE Cardiovascular: AFIB, hypertension, hyperlipidemia Respiratory: asthma Gastrointestinal: NONE Hepatic: NONE Renal: NONE Musculoskeletal: NONE Psychiatric: depression Endocrine: NONE Blood Disorders: NONE Cancer(s): NONE SITE SAFETY REPRESENTATIVE/Reproductive: NONE Surgical History Surgical History: non-contributory Family History Relations & Conditions If Any: MOTHER (cancer unknown). FATHER ([place]). Psychosocial History Services at Home: None ETOH Use: denies use Illicit Drug Use: denies illicit drug use Employment History Employment: Retired Profession/Employer: [id number] Exam & Diagnostic Data Last 24 Hrs of Vital Signs/I&O Vital Signs Date Time Temp Pulse Resp B/P B/P Pulse O2 O2 Flow FiO2 Mean Ox Delivery Rate 09/09 1201 56 129/58 09/09 0917 80 128/62 09/09 0820 97.9 62 18 138/57 09/09 0819 97.9 62 138/57 09/08 2149 68 137/70 09/08 2148 68 137/70 09/08 193 96.7 74 123/56 09/08 193 96.7 74 123/56 09/08 1545 62 108/53 09/08 1526 62 108/53 09/08 1241 64 113/59 Physical Exam General Appearance: obese Neck: normal inspection Respiratory: normal breath sounds Cardiovascular: irregularly irregular Gastrointestinal: non-tender, distention Extremities: swelling (along with chronic skin change) Labs/Morgan Results: Laboratory Tests 09/07 09/07 1710 1647 Chemistry Hemoglobin A1c (4.2 - 5.8 %) 7.3 H Triglycerides (<150 mg/dL) 121 Cholesterol (< 200 MG/DL) 140 LDL Cholesterol, Calc (65 - 129 mg/dL) 76 HDL Cholesterol (40 - 60 mg/dL) 40 Cholesterol/HDL Ratio (0.00 - 4.88 %) 3 Vitamin B12 (239 - 931 pg/mL) 347 TSH &T3 &Free T4 Intrp (0.27 - 4.20 uIU/mL) 2.570 Toxicology Urine Opiates Screen (>2000 NG/ML) < 100.00 Methadone Screen (>300 NG/ML) 45 Barbiturate Screen (>200 NG/ML) < 60 Ur Phencyclidine Scrn (>25 NG/ML) < 6.00 Amphetamines Screen (>1000 NG/ML) < 100 U Benzodiazepines Scrn (>200 NG/ML) < 85 Urine Cocaine Screen (>300 NG/ML) < 50 Urine Cannabis Screen (>50 NG/ML) < 5.00 Serum Alcohol (<10 MG/DL) < 10.0 Urines Urine Color (YEL,AMB,STR) YEL Urine Clarity (CLEAR) CLEAR Urine pH (5.0 - 8.0) 6.0 Ur Specific [place] (1.001 - 1.035) 1.020 Urine Protein (NEG,<30 MG/DL) NEG Urine Ketones (NEG) NEG Urine Nitrite (NEG) NEG Urine Bilirubin (NEG) NEG Urine Urobilinogen (0.1 - 1.0 EU/dl) 0.2 Ur Leukocyte Esterase (NEG) NEG Ur Microscopic EXAM NOT REQUIRED Urine Hemoglobin (NEG) NEG Urine Glucose (N MG/DL) NEG Assessment/Plan Assessment/Plan Patient has had history of atrial fibration, hypertension, dyslipidemia, left renal cancer s/p resection, was admitted for major depression. Blood work showed HbA1c of 7.3% which suggests of diabetes type 2. Patient was newly diagnosed with diabetes type 2. Plan: 1. diabetes education/glucometer teaching; 2. change diet to consistent carbohydrates 1 and low salt diet; 3. monitor FSGs x 4 times a day; will follow and then the management will be adjusted accordingly. Consult Acknowledgment - Thank you for your consult request.
[2017-09-10] VITALS (8 sets, daily range): BP systolic 109–137; BP diastolic 61–67
--- NOTE | 2017-09-10 10:03 | PN- Diabetes ---
Assessment/Plan Assessment: Patient has had history of atrial fibration, hypertension, dyslipidemia, left renal cancer s/p resection, was admitted for major depression. Blood work showed HbA1c of 7.3% which suggests of diabetes type 2. Patient was newly diagnosed with diabetes type 2. He was put on consistent carbohydrates 1 diet and his FSGs were 162 and 139. Plan: continue the diet control. continue monitoring FSGs. will follow. Subjective Subjective: His glucose level has been relatively stable. Objective Last 24 Hrs of Vital Signs/I&O Vital Signs Date Time Temp Pulse Resp B/P B/P Pulse O2 O2 Flow FiO2 Mean Ox Delivery Rate 09/10 0809 96.1 65 127/61 09/10 0742 96.1 65 127/61 09/09 2203 97.2 64 114/54 09/09 1950 97.2 64 114/54 09/09 1554 64 123/57 09/09 1551 64 123/57 09/09 1201 56 129/58
--- NOTE | 2017-09-10 14:54 | CP SOUTH PROGRESS NOTE PSYCH ---
Psych (Inpt) Progress Note Progress Note Include the following elements, when applicable: Involvement in the active treatment of the patient with behavioral observations of the patient and the patient's response to the treatment. Review of the ongoing treatment process in the context of the treatment plan. Indication of how multi-disciplinary staff members are carrying out the treatment plan. Plans for future interventions and recommendations for revision of the treatment plan. Liaison with other physicians/providers. Progress Note: Case discussed with RN. She reports that the patient denies SI. Calm and in control. A little unfocused. Was seen by Dr. Mena yesterday. Patient seen at 1:29 pm. Patient was watching football on TV in dining room prior to meeting with me. Feels "very good." Has no complaints. Affect is calm and blunted. Mood is good. Sad 1-10/21. Anxiety 3-12/19. Denies feeling hopeless, helpless, worthless or guilty. Denies SI. Denies "bad thoughts." Denies HI, AH, VH and PI. Sleep: was alright but reports he was up 3x to urinate. Appetite: very good. Energy: okay. Tolerating medications well, without complaint. IMPRESSION: Slow progress. Continue present treatment plan. Anticipate discharge Monday or Monday to home.
[2017-09-11] VITALS (8 sets, daily range): BP systolic 109–144; BP diastolic 57–77
--- NOTE | 2017-09-11 19:29 | CP SOUTH PROGRESS NOTE PSYCH ---
Psych (Inpt) Progress Note Progress Note Include the following elements, when applicable: Involvement in the active treatment of the patient with behavioral observations of the patient and the patient's response to the treatment. Review of the ongoing treatment process in the context of the treatment plan. Indication of how multi-disciplinary staff members are carrying out the treatment plan. Plans for future interventions and recommendations for revision of the treatment plan. Liaison with other physicians/providers. Progress Note:
--- NOTE | 2017-09-11 19:33 | CP SOUTH PROGRESS NOTE PSYCH ---
Psych (Inpt) Progress Note Progress Note Include the following elements, when applicable: Involvement in the active treatment of the patient with behavioral observations of the patient and the patient's response to the treatment. Review of the ongoing treatment process in the context of the treatment plan. Indication of how multi-disciplinary staff members are carrying out the treatment plan. Plans for future interventions and recommendations for revision of the treatment plan. Liaison with other physicians/providers. Progress Note: The patient was seen one-to-one and discussed with the unit staff. We reviewed the inpatient progress note as well as the initial assessment from the emergency room. The patient has been compliant with medication, has been active on the unit, participating in the therapeutic milieu. He presents as a tall, slightly overweight male, without upper and lower teeth, fairly well groomed, pleasant and cooperative. His speech is well articulated, goal directed, average in rate, volume and tone. He reports his mood is improved. He reports he has reduced anxiety. The patient does not have overt psychosis. He denies suicidal/homicidal ideation, auditory/visual hallucinations, he tolerates the medication well. The patient is oriented to time, place, situation and person. His memory is intact. He has good insight and judgment and seems motivated for treatment. He is making progress towards his goals. We will continue present management and discharge planning. He will be seen daily by the unit psychiatrist.
[2017-09-12] VITALS (7 sets, daily range): BP systolic 112–158; BP diastolic 57–86
--- NOTE | 2017-09-12 13:53 | CP SOUTH PROGRESS NOTE PSYCH ---
Psych (Inpt) Progress Note Progress Note Include the following elements, when applicable: Involvement in the active treatment of the patient with behavioral observations of the patient and the patient's response to the treatment. Review of the ongoing treatment process in the context of the treatment plan. Indication of how multi-disciplinary staff members are carrying out the treatment plan. Plans for future interventions and recommendations for revision of the treatment plan. Liaison with other physicians/providers. Progress Note: Yamel Plascencia MD's note reviewed. Case and treatment plan discussed in team meeting. Staff reports that the patient says he is ready to go home. Patient seen at 10:41 AM. He was in group but got up and met with me in the office. State he has been attending all groups. Feels okay and has no complaints. Affect is calm and blunted. Reports mood is good. I asked if he is back to his normal self, and he replied affirmatively. Rates sad mood 1-2/10 and anxiety 4-5/10. Denies feeling hopeless, helpless, worthless or guilty. Denies active and passive suicidal ideation. Denies having bad thoughts. Denies homicidal ideation. Denies auditory and visual hallucinations and paranoid ideation. Describes sleep, appetite and energy as good. Tolerating medications, including increase in Celexa dose, well, without complaint. IMPRESSION: Slow progress. Continue present treatment plan. Anticipate discharge to home within the next 1-2 days. The patient apparently will have a ID psychiatry appointment this .
--- NOTE | 2017-09-12 14:33 | SOCIAL WORKER PROG NOTE PSYCH ---
Social Work Progress Note Progress Note This fiction and nonfiction writer prose left with concurrent review for Deanne ([phone], ext. [phone]).
--- NOTE | 2017-09-12 16:10 | SOCIAL WORKER PROG NOTE PSYCH ---
Social Work Progress Note Progress Note 10:20am This assembly instructions writer met with patient. He described his mood as "good" and denied SI/HI/ AH/VH. Patient stated that he no longer has a fear of dying. Patient was informed that this assembly instructions writer had not heard back from his son and will attempt to reach him today. Patient stated that his son would likely not return the call and that he had been unable to reach him this weekend. Patient stated that he is interested in in home therapeutic services (psychotherapy). This assembly instructions writer spoke with Cristal Burton at [facility] while the patient was present. Cristal stated that they do not accept the insurance and suggested that this assembly instructions writer contact his insurance company to inquire about out of network benefits or a single case agreement (this was included in the concurrent review today as well as inquiry about other similar services). Patient stated that he plans to see his psychiatrist on 09/14/17 as scheduled. 11:09am This assembly instructions writer spoke with Zoie Copeland at the [facility] by phone and confirmed the patient's psychiatry appointment with Dr. Moeller at the [facility]. 1:52pm This assembly instructions writer attempted to reach Shannon Nash (transferred from the main number) but was unable to leave a vm. 2:32pm A vm was left for the patient's son, Kike, requesting a call back with call back number provided. 4:13pm This assembly instructions writer received a call from Deanne Bueno regarding the concurrent review. Deanne stated that his last covered days is today and that no additional information is needed if the patient discharges tomorrow. If patient does not discharge tomorrow, additional clinical will be needed. She stated that she would also explore the in home psychotherapy services that he might be able to utilize and will contact this assembly instructions writer with that information.
[2017-09-13 07:54] VITALS: BP 128/70
[2017-09-13 07:56] VITALS: BP 128/70
[2017-09-13 12:21] VITALS: BP 125/54
[2017-09-13 12:23] VITALS: BP 125/54
[2017-09-13] MEDS ORDERED: MIRTAZAPINE7.5 M1 PO (13:05)
[2017-09-13] MEDS ORDERED: ONE DAILY MULT1 EAC2 PO (13:05)
[2017-09-13] MEDS ORDERED: CITALOPRAM HBR20 MG PO (13:05)
--- NOTE | 2017-09-13 13:16 | Patient Discharge Instructions ---
Psych Discharge Inst General Discharge Information Reason for Admission: Per crisis note, "upon evaluation... pt reports 'I had a long talk with Dawna (wave guide assembler) earlier today and we came up with a plan and I went home. I took a nap, when I work up I had bad thoughts about dying again.' Although pt does not have suicidal ideation with plan, he feels unsafe being alone, and is fearful of these thoughts. Psy Discharge Primary Diag+ Major depr rec severe Psy Discharge Secondary Diag+ Alcohol use disorder Hypertension Asthma COPD Atrial fibrillation Hypercholesterolemia Overweight Hx kidney tumor surgery Summary Tests/Major Procedures Lab Cholesterol 140 MG/DL 09/07/17 1710 Cholesterol/HDL Ratio 3 % 09/07/17 1710 HDL Cholesterol 40 mg/dL 09/07/17 1710 Hemoglobin A1c 7.3 % H 09/07/17 1710 LDL Cholesterol, Calc 76 mg/dL 09/07/17 1710 TSH &T3 &Free T4 Intrp 2.570 uIU/mL 09/07/17 1710 Triglycerides 121 mg/dL 09/07/17 1710 Vitamin B12 347 pg/mL 09/07/17 1710 Serum Alcohol < 10.0 MG/DL 09/07/17 1710 Lab Albumin 3.1 g/dL L 08/26/17 1720 Albumin/Globulin Ratio 1.0 % L 08/26/17 1720 Glucose 166 mg/dL H 09/07/17 0645 Total Protein 6.1 g/dL L 08/26/17 1720 Hct 39.4 % L 09/07/17 0645 Hgb 13.2 G/DL L 09/07/17 0645 MCH 34.0 PG H 09/07/17 0645 MCV 101.3 FL H 09/07/17 0645 Monocytes % 10.3 % H 09/07/17 0645 Plt Count 153 /CUMM 09/07/17 0645 RBC 3.89 /CUMM L 09/07/17 0645 WBC 4.8 /CUMM 09/07/17 0645 EKG 09/07/17 showed atrial fibrillation, V rate 54-65, minor changes since previous tracing, abnormal EKG, QT 436, QTc 436. Studies Pending at [place]: None. Patient Instructions Contact Information Your Psychiatrist on [facility] was Steffen SHERWOOD,Adrian * If you are experiencing an emergency related to this hospitalization, please call [phone] to contact the treating psychiatrist or the psychiatrist-on- call. * To Request a copy of your medical records, please contact the Medical Records Department at [phone]. * To request results of studies pending at the time of discharge, please call [phone]. * Continue your Medications until directed to stop by your Healthcare provider. General Medication Information Please continue to take your new medications and your continued home medications , unless otherwise indicated on your discharge medication list, or unless directed by your MD or MEDICAL BILLING AND CODING INSTRUCTOR to stop them. Special Instructions Diet Diabetic (Consistent Carb 1, 2 gm sodium) Activity Normal Other Inst/Recommendations Stay away from alcohol. See PCP for medical problems and abnormal labs/ekg - Tobacco Use Treatment Offered Post DC Medications Offered: Not Applicable Post DC Tobacco Treatment Plan: Not Applicable - EtOH/Drug Use D/O Treatment Offered Post DC Medications Offered: Med Not Indicated for D/O Post DC EtOH/SubAbuse TX Plan: Other SubAbuse/Dual Pgm ([facility]) Program Appt Date: 09/14/17 Program Appt Time: 0900 (Dr. Jovel) Metabolic Screening ([x]) Not Applicable, patient not on a neuroleptic. OR () Patient on a neuroleptic(s) . Enter below results for Hemoglobin A1C, and lipid panel if obtained during the last 365 days. BMI: 33.500 Blood Pressure: 125/54 Laboratory Results From [place] EHR (If applicable): Advance Directives Does the Patient have Medical Advance Directives No/Refused further info Does Pt have Psychiatric Advance Directives? No/Refused further info Does Patient have a Designated Surrogate Decision Maker: Yes Information About Psychiatric Advance Directives Provided? Refused Discharge Plan Post Hospital Treatment Plan: [facility] Dr. Jovel, 09/14/17 9 a.m.
[2017-09-13 16:11] VITALS: BP 151/66
--- NOTE | 2017-09-13 16:58 | CP SOUTH PROGRESS NOTE PSYCH ---
Psych (Inpt) Progress Note Progress Note Include the following elements, when applicable: Involvement in the active treatment of the patient with behavioral observations of the patient and the patient's response to the treatment. Review of the ongoing treatment process in the context of the treatment plan. Indication of how multi-disciplinary staff members are carrying out the treatment plan. Plans for future interventions and recommendations for revision of the treatment plan. Liaison with other physicians/providers. Progress Note: Case and treatment plan discussed in team meeting. Staff reports that the patient had a good day. Worked on word search puzzles. Watched TV in kitchen. Patient seen at 10:43 AM. He was in group prior to meeting with me. Feels "good, thank you." Has no complaints. Affect is calm and blunted to euthymic. Mood is good. Rates sad mood 1-2/10. Rates anxiety 3-4/10. Denies feeling hopeless, helpless, worthless or guilty. Denies active and passive suicidal ideation. Denies homicidal ideation. Denies auditory and visual hallucinations and paranoid ideation. Reports sleep is okay. Describes appetite and energy as good. Reports tolerating medications well, without complaint. Feels ready and safe for discharge. IMPRESSION: Condition improved. Okay for discharge today to home with follow-up at the [facility]. ADDENDUM: Arrangements were then made for patient to be referred to [facility]'s IOP.
--- NOTE | 2017-09-13 17:15 | DISCHARGE SUMMARY REPORT-PSYCH ---
Visit Information Visit Dates/Diagnosis' Admission Date: 09/07/17 Discharge Date: 09/13/17 Reason for Admission: Per crisis note, "upon evaluation... pt reports 'I had a long talk with Dawna (manager package) earlier today and we came up with a plan and I went home. I took a nap, when I work up I had bad thoughts about dying again.' Although pt does not have suicidal ideation with plan, he feels unsafe being alone, and is fearful of these thoughts. Psy Discharge Primary Diag: Major depr rec severe Psy Discharge Secondary Diag: Alcohol use disorder Hypertension Asthma COPD Atrial fibrillation Hypercholesterolemia Overweight Hx kidney tumor surgery Diabetes mellitus type 2 Hospital Course Significant Lab Findings: Lab Cholesterol 140 MG/DL 09/07/17 1710 Cholesterol/HDL Ratio 3 % 09/07/17 1710 HDL Cholesterol 40 mg/dL 09/07/17 1710 Hemoglobin A1c 7.3 % H 09/07/17 1710 LDL Cholesterol, Calc 76 mg/dL 09/07/17 1710 TSH &T3 &Free T4 Intrp 2.570 uIU/mL 09/07/17 1710 Triglycerides 121 mg/dL 09/07/17 1710 Vitamin B12 347 pg/mL 09/07/17 1710 Serum Alcohol < 10.0 MG/DL 09/07/17 1710 Lab Albumin 3.1 g/dL L 08/26/17 1720 Albumin/Globulin Ratio 1.0 % L 08/26/17 1720 Glucose 166 mg/dL H 09/07/17 0645 Total Protein 6.1 g/dL L 08/26/17 1720 Hct 39.4 % L 09/07/17 0645 Hgb 13.2 G/DL L 09/07/17 0645 MCH 34.0 PG H 09/07/17 0645 MCV 101.3 FL H 09/07/17 0645 Monocytes % 10.3 % H 09/07/17 0645 Plt Count 153 /CUMM 09/07/17 0645 RBC 3.89 /CUMM L 09/07/17 0645 WBC 4.8 /CUMM 09/07/17 0645 EKG 09/07/17 showed atrial fibrillation, V rate 54-65, minor changes since previous tracing, abnormal EKG, QT 436, QTc 436. Course Complications: None. Consultations: Patient was seen for admission H&P by Dr. Cortez. He noted: "Depression with suicidal ideation- plan per psychiatry. HTN - cont on metoprolol at home dose HLD- cont on lipitor at home dose AFIb- cont on metoprolol and pradaxa. d/w pt the care plan. Encouraged pt to quit drinking ." Patient was seen by Dr. Mena of endocrinology for diagnosis and management of DM type II. She managed the patient's diabetes with diet-control. Allergies: Coded Allergies: aspirin (RELATED TO BEING ON WARFARIN 07/23/16) Hospital Course/TX Response: The patient was monitored on the unit for safety and mood disorder. He participated in multi-modal treatments on the unit. Celexa dose was increased to 30 mg daily. Mood and affect have improved. Patient has continuously denied any recent SI. "Bad thoughts" have remitted. Loneliness seems to be a major trigger for low mood and we have encouraged the patient to explore means of increasing socialization in the community. Progress note from date of discharge, 09/13/17: Progress Note Include the following elements, when applicable: Involvement in the active treatment of the patient with behavioral observations of the patient and the patient's response to the treatment. Review of the ongoing treatment process in the context of the treatment plan. Indication of how multi-disciplinary staff members are carrying out the treatment plan. Plans for future interventions and recommendations for revision of the treatment plan. Liaison with other physicians/providers. Progress Note: Case and treatment plan discussed in team meeting. Staff reports that the patient had a good day. Worked on word search puzzles. Watched TV in kitchen. Patient seen at 10:43 AM. He was in group prior to meeting with me. Feels "good, thank you." Has no complaints. Affect is calm and blunted to euthymic. Mood is good. Rates sad mood 1-2/10. Rates anxiety 3-4/10. Denies feeling hopeless, helpless, worthless or guilty. Denies active and passive suicidal ideation. Denies homicidal ideation. Denies auditory and visual hallucinations and paranoid ideation. Reports sleep is okay. Describes appetite and energy as good. Reports tolerating medications well, without complaint. Feels ready and safe for discharge. IMPRESSION: Condition improved. Okay for discharge today to home with follow-up at the [facility]. ADDENDUM: Arrangements were then made for patient to be referred to [facility] IOP. Discharge HBIPS - Tobacco Use Treatment Offered Post DC Medications Offered: Not Applicable Post DC Tobacco Treatment Plan: Not Applicable - EtOH/Drug Use D/O Treatment Offered Post DC Medications Offered: Med Not Indicated for D/O Post DC EtOH/SubAbuse TX Plan: [place] [facility]use/Dual IOP Program Appt Date: 09/15/17 Program Appt Time: 1130 Metabolic Screening - Screen if on a Neuroleptic Medication - Metabolic screening should include: - Blood Pressure, BMI, Glucose or Hgb A1c, & a - Lipid profile from within the past 365 days. Metabolic Screening ([x]) Not Applicable, patient not on a neuroleptic. OR () Patient on a neuroleptic(s) . Enter below results for Hemoglobin A1C, and lipid panel if obtained during the last 365 days. BMI: 33.500 Blood Pressure: 151/66 Laboratory Results From [place] EHR (If applicable): Discharge Instructions General Discharge Information Multiple Neuroleptics: ([x]) Not Applicable OR Document below three failed attempts at monotherapy, or a plan to taper to monotherapy, or augmentation of Clozapine. () Discharge Diet Diabetic (Consistent Carb 1, 2 gm sodium) Discharge Activity Normal DC Disposition: Returning home. Referrals Ordered Referrals Provider Referral 09/14/17 [place] Groups: [facility] [address] [phone] Padron on 09/14/17 at 9am. Provider Referral 09/15/17 For Groups: [[facility]] [facility] [address] [place] [address] Intake: 09/15/17 at 11:30am Prescriptions Stop taking the following medications: Citalopram Hydrobromide (Celexa) 40 MG TABLET ORAL DAILY Sennosides (Senna) 8.6 MG TABLET ORAL TWICE DAILY as needed for STOOL SOFTENER Mirtazapine (Mirtazapine) 30 MG TABLET ORAL TAKE AT BEDTIME Acetaminophen (Acetaminophen) 500 MG TABLET ORAL Q4-6H as needed for PAIN Methylprednisolone. (Medrol) 4 MG TAB.DS.PK ORAL As Directed Qty = 1 Codeine Phosphate/Guaifenesi (Guaifenesin AC Cough Syrup) 10 MG-100 MG/5 ML LIQUID ORAL Q6HR as needed for COUGH Qty = 150 Azithromycin (Zithromax) 250 MG TABLET ORAL As Directed Qty = 6 Continue taking these medications: Dabigatran Etexilate Mesylate (Pradaxa 150 MG) 150 MG CAPSULE 1 Capsule ORAL TWICE DAILY Comments: Last Taken:09/13/17 Time:0900 Budesonide/Formoterol Fumarate (Symbicort 80-4.5 Mcg Inhaler) 10.2 GM HFA.AER.AD 2 Puff Inhale through mouth TWICE DAILY Comments: Last Taken:09/13/17 Time:0900 Furosemide (Lasix) 20 MG TABLET 1 Tablet ORAL Every Morning Comments: Last Taken:09/13/17 Time:0900 Metoprolol Tartrate (Lopressor) 50 MG TABLET 1.5 Tablet ORAL TWICE DAILY Comments: Last Taken:09/13/17 Time:0900 Atorvastatin Calcium (Lipitor) 80 MG TABLET 0.5 Tablet ORAL Every night Comments: Last Taken:09/12/17 Time:1600 Docusate Sodium (Docusate Sodium) 100 MG CAPSULE 1 Capsule ORAL TWICE DAILY as needed for STOOL SOFTENER Comments: Last Taken:09/13/17 Time:0900 Albuterol Sulfate (Proair Hfa) 8.5 GM HFA.AER.AD 1 Puff Inhale through mouth Q6H as needed for SOB Comments: Last Taken:NOT USED IN THE HOSPITAL Time: Acetaminophen (Tylenol) 325 MG TABLET 2 Tablet ORAL Q6H as needed for PAIN Comments: Last Taken:NOT GIVEN IN THE HOSPITAL Time: Sildenafil Citrate (Viagra) 50 MG TABLET 1 Tablet ORAL As Directed as needed for ED Instructions: 1 hour before sexual activity Comments: Last Taken:NOT GIVEN IN THE HOSPITAL Time: Thiamine HCl (B-1) 100 MG TABLET 2 Tablet ORAL DAILY Comments: Last Taken:09/13/17 Time:0900 Cyanocobalamin (Vitamin B-12) 1,000 MCG TABLET 1 Tablet ORAL DAILY Comments: Last Taken:09/13/17 Time:0900 Start taking the following new medications: Citalopram Hydrobromide (Citalopram HBr) 20 MG TABLET 1.5 Tablet ORAL DAILY Qty = 21 No Refills Comments: Last Taken:09/13/17 Time:0900 Mirtazapine (Mirtazapine) 7.5 MG TABLET 7.5 Milligram ORAL AT BEDTIME Qty = 14 No Refills Comments: Last Taken:09/12/17 Time:2200 Multivitamin (One Daily Multivitamin) 1 EACH TABLET 1 Tablet ORAL DAILY Qty = 14 No Refills Comments: Last Taken:09/13/17 Time:0900 Other Inst/Recommendations Stay away from alcohol. See PCP for medical problems and abnormal labs/ekg Copies To: Intensive Outpt Psychiatry
--- NOTE | 2017-09-13 18:33 | SOCIAL WORKER PROG NOTE PSYCH ---
Social Work Progress Note Progress Note 11:35am This comic book writer recevied vm from Deanne Quiroz at the patient's insurance company stating that they could not cover in home therapists and recommended outpatient treatment in the community. This comic book writer met with patient and was informed of the above. He expressed interest in attenging IOP as it was easy for him to take the bus to and from appointments. He stated that he will continue with his psychiatrist, Dr. Alcocer, at the [facility] and is aware of the appointment schedule for tomorrow at 9am. Patient stated that he had tried to reschedule it due to the weather but was unable to and [facility]. He was informed that this comic book writer spoke with Shannon Nash at the [facility] this morning who stated that the appointment is still scheduled for tomorrow and that he could reschedule by calling if need be. He was also informed that Shannon stated that he is not eligible for transportation and could request a consult if he is interested in doing so. Patient denied SI/ HI/AH/VH. He identified a safety plan in which he would "call my son, my friend in [place]" and also acknowledged that he could utilize 911 or the crisis numbers and warm lines that will be provided to him upon discharge. He accepted an IOP intake appointment with for 09/15/17 at 11:30am. Patient expressed interest in a referral to [facility] and [facility] was contacted regarding this. Patient called his friend Alexi who will provide transportation from the hospital to his home upon discharge. This comic book writer attempted to fax the patient health summary to the [facility] but received an error message. A vm was left for Shannon Nash ([phone], ext. [phone]) requesting to confirm the fax number . Faxed Referral(s) Referred To: [facility] Transition of Care Documents sent: Health Summary Faxed to: IOP Fax #: [phone] Faxed by: Julian Hughes LCSW Date faxed: 09/13/17 Time Faxed: [phone]
--- NOTE | 2017-09-15 16:09 | SOCIAL WORKER PROG NOTE PSYCH ---
Social Work Progress Note Progress Note This keno writer/runner spoke with Amada Bah with [facility] after receiving a message from her that the referral had not been received. Amada was provided with referral information and stated that they may be able to provided services and resources to connect the patient with community supports. She stated that she would follow up with final determination. This keno writer/runner relayed this information to Jaida Jimenez LPC at [facility] as the patient had been referred to their services.
== END 2017-09-13 17:18 | DRG 885 ==
LOC: ERH 16:20 → CP SOUTH 20:09 → ERHI 20:09 → ENTRNSPT 21:52 → EDTRNSPTSTS 21:56 → EDTRNSPT 21:56 → CMPTRNSPT 22:02 → CP SOUTH 22:10
PROVIDERS: Emergency Medicine
DX: F33.2 Major depressive disorder, recurrent severe without psychotic features (principal); I48.91 Unspecified atrial fibrillation; E11.9 Type 2 diabetes mellitus without complications; J44.9 Chronic obstructive pulmonary disease, unspecified; I10 Essential (primary) hypertension; Z72.89 Other problems related to lifestyle; E78.00 Pure hypercholesterolemia, unspecified; E66.3 Overweight; Z98.890 Other specified postprocedural states
CPT/HCPCS: 80307; 81003; G0480; J3490; Q2036

== ENCOUNTER 2017-11-01 07:26 | Emergency (ER) | payer OTHER ==
[~2017-11-01] VITALS: Ht 190.5 cm; Wt 117.0 kg
[~2017-11-01 07:26] MED LIST changes: +CITALOPRAM HBR20 MG PO; +MIRTAZAPINE7.5 M1 PO; +NALTREXONE HCL50 M1 PO; +ONE DAILY MULT1 EAC2 PO
--- NOTE | 2017-11-01 07:35 | ED GENERAL ADULT ---
History of Present Illness General Chief Complaint: Psychiatric Related Complaint Stated Complaint: BIBA FOR PSYCH Source: patient, old records, EMS Exam Limitations: no limitations Vital Signs & Intake/Output Vital Signs & Intake/Output Vital Signs Date Time Temp Pulse Resp B/P B/P Pulse O2 O2 Flow FiO2 Mean Ox Delivery Rate 11/01 0730 96.8 75 20 181/96 97 Room Air Allergies Coded Allergies: aspirin (RELATED TO BEING ON WARFARIN 07/23/16) Reconcile Medications Acetaminophen (Tylenol) 325 MG TABLET 2 TAB PO Q6H PRN PAIN (Reported) Albuterol Sulfate (Proair Hfa) 8.5 GM HFA.AER.AD 1 PUF INH Q6H PRN SOB ( Reported) Atorvastatin Calcium (Lipitor) 80 MG TABLET 0.5 TAB PO QPM CHOLESTEROL ( Reported) Budesonide/Formoterol Fumarate (Symbicort 80-4.5 Mcg Inhaler) 10.2 GM HFA.AER.AD 2 PUF INH BID COPD (Reported) Citalopram Hydrobromide (Citalopram HBr) 20 MG TABLET 1.5 TAB PO DAILY depression Cyanocobalamin (Vitamin B-12) 1,000 MCG TABLET 1 TAB PO DAILY SUPPLEMENT ( Reported) Dabigatran Etexilate Mesylate (Pradaxa 150 MG) 150 MG CAPSULE 1 CAP PO BID BLOOD THINNER (Reported) Docusate Sodium 100 MG CAPSULE 1 CAP PO BID PRN STOOL SOFTENER (Reported) Furosemide (Lasix) 20 MG TABLET 1 TAB PO QAM DIURETIC (Reported) Metoprolol Tartrate (Lopressor) 50 MG TABLET 1.5 TAB PO BID BP (Reported) Mirtazapine 7.5 MG TABLET 7.5 MG PO AT BEDTIME depression/sleep Multivitamin (One Daily Multivitamin) 1 EACH TABLET 1 TAB PO DAILY vitamin supplement Naltrexone HCl 50 MG TABLET 1 TAB PO DAILY ETOH (Reported) Sildenafil Citrate (Viagra) 50 MG TABLET 1 TAB PO AD PRN ED (Reported) 1 hour before sexual activity Thiamine HCl (B-1) 100 MG TABLET 2 TAB PO DAILY SUPPLEMENT (Reported) Triage Note: 77 YO MALE BIBCourtney FROM HOME. PT STATES HE HAD A NIGHTMARE LAST NIGHT AND WOKE UP SCARED "THAT I WAS GONIG TO " DENIES SI/HI. DENIES HEARING VOICES. DENIES ALCOHOL/DRUG USE. PT CALM AND COOPERATIVE. SECUITY CALLED FOR WANDING. PT DENIES ANY PAIN. DENIES SOB. MD AT BEDSIDE FOR EVAL Triage Nurses Notes Reviewed? yes HPI: Patient states that he had very vivid dreams this morning and then he woke up. Patient then tried to call his 2 sons but just got their voicemail. Patient then called 911. Patient denies any suicidal homicidal ideations. Patient denies any hallucinations. Patient is alert and oriented 3. Past History Travel History Traveled to [place] past 21 day No Medical History Any Pertinent Medical History? 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 FATHER ([place], [place]). Hx Contributory? No Review of Systems Review of Systems Constitutional: Reports: no symptoms. Respiratory: Reports: no symptoms. Cardiovascular: Reports: no symptoms. GI: Reports: no symptoms. Musculoskeletal: Reports: no symptoms. Neurological/Psychological: Reports: see HPI. Immunologic/Allergic: Reports: no symptoms. Physical Exam Physical Exam General Appearance: well developed/nourished, alert, awake, anxious Head: atraumatic, normal appearance Eyes: Bilateral: PERRL, EOMI. Ears, Nose, Throat: normal pharynx, normal ENT inspection, hearing grossly normal Neck: normal inspection, supple, full range of motion Respiratory: normal breath sounds, chest non-tender, no respiratory distress, lungs clear Cardiovascular: regular rate/rhythm, normal peripheral pulses Gastrointestinal: normal bowel sounds, soft, non-tender, no organomegaly Back: normal inspection, normal range of motion Extremities: pedal edema (TRACE) Neurologic/Psych: no motor/sensory deficits, awake, alert, oriented x 3, normal gait, normal mood/affect Skin: intact, normal color, warm/dry Lymphatic: no anterior cervical rosmery Core Measures ACS in differential dx? No CVA/TIA Diagnosis: No Sepsis Present: No Sepsis Focused Exam Completed? No Progress Differential Diagnoses I considered the following diagnoses in my evaluation of the patient: [UTI, DELERIUM, VIVID DREAMS] Plan of Care: Orders Procedure Date/time Status Regular Diet 11/01 L Active URINALYSIS 11/01 0734 Complete Laboratory Tests 11/01/17 0740: Urine Color STRAW, Urine Clarity CLEAR, Urine pH 6.0, Ur Specific [place] 1.015, Urine Protein NEG, Urine Ketones NEG, Urine Nitrite NEG, Urine Bilirubin NEG, Urine Urobilinogen 0.2, Ur Leukocyte Esterase NEG, Ur Microscopic EXAM NOT REQUIRED, Urine Hemoglobin NEG, Urine Glucose NEG Initial ED EKG: none Departure Departure Disposition: HOME OR SELF CARE Condition: Stable Clinical Impression Primary Impression: Anxiety Referrals: Carmina Euceda MD (PCP/Family) Additional Instructions: RETURN IF SYMPTOMS WORSEN OR FOR ANY CONCERNS Departure Forms: Customer Survey General Discharge Information Critical Care Note Critical Care Note Critical Care Time: non-applicable
[2017-11-01 10:17] VITALS: BP 136/88
== END 2017-11-01 10:17 ==
LOC: ERH 07:26
DX: F41.9 Anxiety disorder, unspecified (principal)
CPT/HCPCS: 81003

== ENCOUNTER 2017-11-01 23:22 | Emergency (ER) | payer OTHER ==
[~2017-11-01] VITALS: Ht 190.5 cm; Wt 117.0 kg
--- NOTE | 2017-11-02 00:05 | ED CARDIAC/CP/PALPITATIONS ---
History of Present Illness General Chief Complaint: General Adult Stated Complaint: BIBA, ANXIETY Source: patient, old records, EMS Exam Limitations: no limitations Vital Signs & Intake/Output Vital Signs & Intake/Output Vital Signs Date Time Temp Pulse Resp B/P B/P Pulse O2 O2 Flow FiO2 Mean Ox Delivery Rate 11/02 0252 55 20 144/82 96 Room Air 11/02 0107 58 20 134/67 96 Room Air 11/01 2335 96 Room Air 11/01 2334 96.7 94 20 176/81 96 Room Air ED Intake and Output 11/02 0000 11/01 1200 Intake Total Output Total Balance Patient 258 lb Weight Allergies Coded Allergies: aspirin (RELATED TO BEING ON WARFARIN 07/23/16) Reconcile Medications Acetaminophen (Tylenol) 325 MG TABLET 2 TAB PO Q6H PRN PAIN (Reported) Albuterol Sulfate (Proair Hfa) 8.5 GM HFA.AER.AD 1 PUF INH Q6H PRN SOB ( Reported) Atorvastatin Calcium (Lipitor) 80 MG TABLET 0.5 TAB PO QPM CHOLESTEROL ( Reported) Budesonide/Formoterol Fumarate (Symbicort 80-4.5 Mcg Inhaler) 10.2 GM HFA.AER.AD 2 PUF INH BID COPD (Reported) Citalopram Hydrobromide (Citalopram HBr) 20 MG TABLET 1.5 TAB PO DAILY depression Cyanocobalamin (Vitamin B-12) 1,000 MCG TABLET 1 TAB PO DAILY SUPPLEMENT ( Reported) Dabigatran Etexilate Mesylate (Pradaxa 150 MG) 150 MG CAPSULE 1 CAP PO BID BLOOD THINNER (Reported) Docusate Sodium 100 MG CAPSULE 1 CAP PO BID PRN STOOL SOFTENER (Reported) Furosemide (Lasix) 20 MG TABLET 1 TAB PO QAM DIURETIC (Reported) Metoprolol Tartrate (Lopressor) 50 MG TABLET 1.5 TAB PO BID BP (Reported) Mirtazapine 7.5 MG TABLET 7.5 MG PO AT BEDTIME depression/sleep Multivitamin (One Daily Multivitamin) 1 EACH TABLET 1 TAB PO DAILY vitamin supplement Naltrexone HCl 50 MG TABLET 1 TAB PO DAILY ETOH (Reported) Sildenafil Citrate (Viagra) 50 MG TABLET 1 TAB PO AD PRN ED (Reported) 1 hour before sexual activity Thiamine HCl (B-1) 100 MG TABLET 2 TAB PO DAILY SUPPLEMENT (Reported) Core Measure Meds Pre-Hospital Pradaxa Triage Note: 77YO MAL ETO RM 5 VIA AMB W/CO L SIDED CPTHAT CAME ON WHILE TRYING TO SLEEP TONITE.. STATES > CP CAME ON AND LASTED 30SEC THEN WENT AWAY" DENIES ANYN CP AT THIS TIME. Triage Nurses Notes Reviewed? yes Onset: Just prior to arrival Duration: minute(s):, constant, gone now Timing: recent history Quality/Severity: mild, moderate, pressure Location: L sided Radiation: no radiation Activities at Onset: rest Prior Chest Pain/Card Workup: echocardiography, stress test Modifying Factors: Improves With: rest. Nitro Today/Relief: no nitro taken today Aspirin Today: no aspirin today HPI: Prior to admission after waking from sleep and going to the bathroom in his commode he complained of left-sided chest pain sharp constant nonradiating lasting less than 3 minutes resolving with rest. He denies fever chills nausea vomiting diarrhea abdominal pain shortness of breath headache dysuria rash bleeding. Past History Travel History Traveled to [place] past 21 day No Medical History Any Pertinent Medical History? 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 FATHER ([place]). Hx Contributory? No Review of Systems Review of Systems Constitutional: Reports: no symptoms. EENTM: Reports: no symptoms. Respiratory: Reports: no symptoms. Cardiovascular: Reports: see HPI, chest pain. GI: Reports: no symptoms. Genitourinary: Reports: no symptoms. Musculoskeletal: Reports: no symptoms. Skin: Reports: no symptoms. Neurological/Psychological: Reports: no symptoms. Hematologic/Endocrine: Reports: no symptoms. Immunologic/Allergic: Reports: no symptoms. All Other Systems: Reviewed and Negative Physical Exam Physical Exam General Appearance: well developed/nourished, alert, awake, anxious, obese Head: atraumatic, normal appearance Eyes: Bilateral: normal appearance, PERRL, EOMI. Ears, Nose, Throat: normal pharynx, normal ENT inspection, hearing grossly normal Neck: normal inspection, supple, full range of motion, no midline tenderness Respiratory: normal breath sounds, chest non-tender, no respiratory distress, quiet respiration, lungs clear Cardiovascular: regular rate/rhythm, normal peripheral pulses, norml femoral pulses equa Peripheral Pulses: 4+ carotid (R), 4+ carotid (L) Gastrointestinal: normal bowel sounds, soft, non-tender, no organomegaly Back: normal inspection, normal range of motion, no vertebral tenderness Extremities: normal inspection, normal capillary refill, normal range of motion, no edema, no ligament instability Neurologic/Psych: no motor/sensory deficits, awake, alert, oriented x 3, 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 Skin: intact, normal color, warm/dry Lymphatic: no anterior cervical rosmery Core Measures ACS in differential dx? Yes No ASA d/t Medical Contraindication CVA/TIA Diagnosis No Sepsis Present: No Sepsis Focused Exam Completed? No Progress Differential Diagnosis: AMI, costochondritis, hypovolemia Plan of Care: Orders Procedure Date/time Status TROPONIN LEVEL 11/02 0300 Complete Add-on Test (ER Only) 11/02 0003 Active MAGNESIUM 11/02 0002 Complete LIPASE 11/02 0002 Complete TROPONIN LEVEL 11/01 2348 Complete COMPREHENSIVE METABOLIC PANEL 11/01 2348 Complete CBC WITHOUT DIFFERENTIAL 11/01 2348 Complete EKG 11/01 2331 Active Laboratory Tests 11/02/17 0251: Troponin I < 0.01 11/02/17 0002: Anion Gap 14, Estimated GFR > 60, BUN/Creatinine Ratio 20.0, Glucose 117 H, Calcium 8.8, Magnesium 1.6, Total Bilirubin 0.7, AST 26, ALT 30, Alkaline Phosphatase 84, Troponin I < 0.01, Total Protein 6.6, Albumin 3.8, Globulin 2.8, Albumin/Globulin Ratio 1.4, Lipase 134, CBC w Diff NO MAN DIFF REQ, RBC 4.07 L, MCV 100.6 H, MCH 33.8 H, MCHC 33.6, RDW 12.4, MPV 8.4, Gran % 62.3, Lymphocytes % 24.4, Monocytes % 9.2, Eosinophils % 3.8, Basophils % 0.3, Absolute Granulocytes 3.4, Absolute Lymphocytes 1.3, Absolute Monocytes 0.5, Absolute Eosinophils 0.2, Absolute Basophils 0 Initial ED EKG: normal axis, normal intervals, normal p-waves, normal QRS complex, normal sinus rhythm, no ST T wave changes Prior EKG: unchanged Rhythm Strip: normal sinus rhythm Departure Departure Time of Disposition: 550 Disposition: HOME OR SELF CARE Condition: Stable Clinical Impression Primary Impression: Chest pain as manifestation of blood transfusion reaction Referrals: Carmina Euceda MD (PCP/Family) Departure Forms: Customer Survey General Discharge Information Critical Care Note Critical Care Note Critical Care Time: non-applicable
[2017-11-02 00:35] LABS: ABSOLUTE BASOPHIL COUNT 0 /CUMM (0.0-0.2); ABSOLUTE EOSINOPHIL COUNT 0.2 /CUMM (0.0-0.7); ABSOLUTE GRANULOCYTE CT 3.4 /CUMM (1.4-6.5); ABSOLUTE LYMPH COUNT 1.3 /CUMM (1.2-3.4); ABSOLUTE MONOCYTE COUNT 0.5 /CUMM (0.10-0.60); BASOPHIL % 0.3 % (0.0-2.0); EOSINOPHIL % 3.8 % (0-5); GRANULOCYTE % 62.3 % (42.2-75.2); MEAN CORPUSCULAR HGB 33.8 PG (27.0-31.0); MEAN CORPUSCULAR HGB CONC 33.6 G/DL (33.0-37.0); MEAN CORPUSCULAR VOLUME 100.6 FL (80.0-94.0); MEAN PLATELET VOLUME 8.4 FL (7.4-10.4); PLATELET COUNT 168 /CUMM (130-400); RBC DISTRIBUTION WIDTH 12.4 % (11.5-14.5); RED BLOOD CELL CT 4.07 /CUMM (4.70-6.10); WHITE BLOOD CELL COUNT 5.4 /CUMM (4.8-10.8)
[2017-11-02 02:52] VITALS: BP 144/82
== END 2017-11-02 07:38 ==
LOC: ERH 23:22
PROVIDERS: Emergency Medicine
DX: R07.9 Chest pain, unspecified (principal)
CPT/HCPCS: 93005; 93010

== ENCOUNTER 2017-11-05 06:49 | Emergency (ER) | payer OTHER ==
[~2017-11-05] VITALS: Ht 190.5 cm; Wt 117.0 kg
--- NOTE | 2017-11-05 06:51 | ED GENERAL ADULT ---
See Addendum History of Present Illness General Chief Complaint: Dyspnea (COPD, CHF, Other) Stated Complaint: SOB Source: patient, old records, EMS Exam Limitations: no limitations Vital Signs & Intake/Output Vital Signs & Intake/Output Vital Signs Date Time Temp Pulse Resp B/P B/P Pulse O2 O2 Flow FiO2 Mean Ox Delivery Rate 11/05 0653 62 22 190/87 95 Room Air Allergies Coded Allergies: aspirin (RELATED TO BEING ON WARFARIN 07/23/16) Reconcile Medications Acetaminophen (Tylenol) 325 MG TABLET 2 TAB PO Q6H PRN PAIN (Reported) Albuterol Sulfate (Proair Hfa) 8.5 GM HFA.AER.AD 1 PUF INH Q6H PRN SOB ( Reported) Atorvastatin Calcium (Lipitor) 80 MG TABLET 0.5 TAB PO QPM CHOLESTEROL ( Reported) Budesonide/Formoterol Fumarate (Symbicort 80-4.5 Mcg Inhaler) 10.2 GM HFA.AER.AD 2 PUF INH BID COPD (Reported) Citalopram Hydrobromide (Citalopram HBr) 20 MG TABLET 1.5 TAB PO DAILY depression Cyanocobalamin (Vitamin B-12) 1,000 MCG TABLET 1 TAB PO DAILY SUPPLEMENT ( Reported) Dabigatran Etexilate Mesylate (Pradaxa 150 MG) 150 MG CAPSULE 1 CAP PO BID BLOOD THINNER (Reported) Docusate Sodium 100 MG CAPSULE 1 CAP PO BID PRN STOOL SOFTENER (Reported) Furosemide (Lasix) 20 MG TABLET 1 TAB PO QAM DIURETIC (Reported) Metoprolol Tartrate (Lopressor) 50 MG TABLET 1.5 TAB PO BID BP (Reported) Mirtazapine 7.5 MG TABLET 7.5 MG PO AT BEDTIME depression/sleep Multivitamin (One Daily Multivitamin) 1 EACH TABLET 1 TAB PO DAILY vitamin supplement Naltrexone HCl 50 MG TABLET 1 TAB PO DAILY ETOH (Reported) Sildenafil Citrate (Viagra) 50 MG TABLET 1 TAB PO AD PRN ED (Reported) 1 hour before sexual activity Thiamine HCl (B-1) 100 MG TABLET 2 TAB PO DAILY SUPPLEMENT (Reported) Triage Nurses Notes Reviewed? yes Onset: Gradual Duration: week(s):, waxing and waning Timing: recent history Injury Environment: home Severity: mild, moderate Modifying Factors: Improves With: rest. Associated Symptoms: chest pain, DYSPNEA HPI: 77 YO gentleman h/o afib, asthma, presents with 3-4 hours of dyspnea, anxiety, chest pain. The chest pain is non radiating, without diaphoresis, syncope. He took 2 puffs of symbicort, no proair. He shares this is his fourth visit within the week with similar symptoms, which thus far have resulted in an non revealing evaluation. He called 911. The medics noted a normal 02 sat, no wheezing or overt dyspnea on exam. Upon arrival, he notes that he is feeling better. (Eben SHERWOOD,Adrina Sanchez) Past History Travel History Traveled to [place] past 21 day Yes Medical History Any Pertinent Medical History? 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 FATHER (cad, [place]). Hx Contributory? No (Eben SHERWOOD,Adrian Sanchez) Review of Systems Review of Systems Constitutional: Reports: no symptoms. EENTM: Reports: no symptoms. Respiratory: Reports: no symptoms. Cardiovascular: Reports: no symptoms. GI: Reports: no symptoms. Genitourinary: Reports: no symptoms. Musculoskeletal: Reports: no symptoms. Skin: Reports: no symptoms. Neurological/Psychological: Reports: no symptoms. Hematologic/Endocrine: Reports: no symptoms. Immunologic/Allergic: Reports: no symptoms. All Other Systems: Reviewed and Negative (Adrian Treadwell MD) Physical Exam Physical Exam General Appearance: well developed/nourished, no apparent distress Head: atraumatic, normal appearance Eyes: Bilateral: normal appearance. Ears, Nose, Throat: normal pharynx, normal ENT inspection Neck: normal inspection, supple, full range of motion Respiratory: normal breath sounds, chest non-tender, no respiratory distress, quiet respiration, lungs clear Cardiovascular: regular rate/rhythm Gastrointestinal: normal bowel sounds, soft, non-tender, no organomegaly Back: normal inspection, normal range of motion Extremities: normal inspection, normal capillary refill, normal range of motion, 1+ symmetrical edema bilaterally Neurologic/Psych: no motor/sensory deficits, awake, alert, oriented x 3 Skin: intact, normal color, warm/dry Core Measures ACS in differential dx? No CVA/TIA Diagnosis: No Sepsis Present: No Sepsis Focused Exam Completed? No (Eben SHERWOOD,Adrian Sanchez) Progress Differential Diagnoses I considered the following diagnoses in my evaluation of the patient: asthma vs anxiety vs other. Plan of Care: Orders Procedure Date/time Status Heart Healthy Diet 11/05 L Active TROPONIN LEVEL 11/05 1000 Active Add-on Test (ER Only) 11/05 0711 Active URINE DRUGS OF ABUSE 11/05 0704 Active URINALYSIS 11/05 0704 Active ETHANOL 11/05 0700 Active ED CRISIS PSYCH CONSULT 11/05 0653 Active CASE MANAGEMENT CONSULT 11/05 0653 Active XRY-PORTABLE CHEST XRAY 11/05 0652 Active TROPONIN LEVEL 11/05 0652 Active LIPASE 11/05 0652 Active HEPATIC FUNCTION PANEL 11/05 0652 Active D-DIMER 11/05 0652 Active CBC WITHOUT DIFFERENTIAL 11/05 0652 Active BASIC METABOLIC PANEL 11/05 0652 Active AMYLASE 11/05 0652 Active EKG 11/05 0652 Active Laboratory Tests 11/05/ 0700: Sodium Pending, Potassium Pending, Chloride Pending, Carbon Dioxide Pending, Anion Gap Pending, BUN Pending, Creatinine Pending, BUN/Creatinine Ratio Pending , Glucose Pending, Calcium Pending, Total Bilirubin Pending, Direct Bilirubin Pending, AST Pending, ALT Pending, Alkaline Phosphatase Pending, Troponin I Pending, Total Protein Pending, Albumin Pending, Amylase Pending, Lipase Pending , D-Dimer High Sensitivty Pending, CBC w Diff Pending, WBC Pending, RBC Pending, Hgb Pending, Hct Pending, MCV Pending, MCH Pending, MCHC Pending, RDW Pending, Plt Count Pending, MPV Pending, Serum Alcohol Pending Initial ED EKG: pending Hand-Off Endorsed To: Ted Lee DO Endorsed Time: 0700 Pending: EKG, labs, Xray (Eben SHERWOOD,Adrian Sanchez) Departure Departure Disposition: STILL A PATIENT Condition: Stable Clinical Impression Primary Impression: Anxiety Secondary Impressions: Shortness of breath Referrals: Carmina Euceda MD (PCP/Family) Departure Forms: Customer Survey General Discharge Information (Eben SHERWOOD,Adrian Sanchez) Departure Comments 11/05/17 7:17 am The patient was signed out to me by Dr. Treadwell. Labs are pending. He is pending crisis consultation and Case management. (Jesus GARCIA,Ted Perez) Critical Care Note Critical Care Note Critical Care Time: non-applicable (Eben SHERWOOD,Adrian Sanchez)
[2017-11-05 07:46] LABS: ABSOLUTE BASOPHIL COUNT 0 /CUMM (0.0-0.2); ABSOLUTE EOSINOPHIL COUNT 0.2 /CUMM (0.0-0.7); ABSOLUTE GRANULOCYTE CT 2.7 /CUMM (1.4-6.5); ABSOLUTE LYMPH COUNT 1.1 /CUMM (1.2-3.4); ABSOLUTE MONOCYTE COUNT 0.4 /CUMM (0.10-0.60); BASOPHIL % 0.5 % (0.0-2.0); GRANULOCYTE % 60.7 % (42.2-75.2); HEMATOCRIT 41.9 % (42-52); MEAN CORPUSCULAR HGB 32.6 PG (27.0-31.0); MEAN CORPUSCULAR HGB CONC 31.9 G/DL (33.0-37.0); MEAN CORPUSCULAR VOLUME 102.2 FL (80.0-94.0); PLATELET COUNT 179 /CUMM (130-400); RBC DISTRIBUTION WIDTH 12.8 % (11.5-14.5); WHITE BLOOD CELL COUNT 4.5 /CUMM (4.8-10.8)
--- NOTE | 2017-11-05 07:54 | RADIOLOGY REPORT ---
EXAMINATION: XR PORTABLE CHEST CLINICAL INFORMATION: Dyspnea COMPARISON: Multiple priors, most recent from 10/28/2017. TECHNIQUE: Portable frontal view of the chest was obtained. FINDINGS: Mild bibasilar atelectasis. No consolidative airspace disease. No overt congestive changes. No pleural effusion or pneumothorax. The cardiomediastinal silhouette is unchanged. Scattered aortic atherosclerosis. No acute osseous abnormality is seen. IMPRESSION: Mild bibasilar atelectasis. Otherwise no evidence of acute pulmonary disease.
--- NOTE | 2017-11-05 09:31 | ED PSYCH CRISIS CONSULTATION ---
Crisis Consult Basic Assessment Date of Consult: 11/05/17 Responsible Person/Accompanied By: self Insurance Authorization: Insurance #1: Insurance name: MEDICARE [facility] Phone number: Policy number: [id number] Group number: [id number] Authorization number: ED Provider: Patient's ED Provider: Adrian Treadwell MD Primary Care Physician: Patient's PCP: Carmina Euceda MD PCP's Current Psychiatrist: [facility] Chief Complaint: Dyspnea (COPD, CHF, Other) Patient's Quote: "I was anxious I was going to ." Present Illness: The pt is a 77yo male BIBA after calling 911 for difficulty breathing. The pt reports he woke up this morning short of breath which did not improve after using his inhaler twice. The pt stated it made me anxious I might . I dont want to . The pt presents alert, oriented, calm and cooperative with no evidence of thought disorder. The pt denies SI, HI, AH and VH. The pt denies any problems with sleep, appetite and concentration. The pt reports sadness regarding lack of interaction with his 5 children. The pt denies any drug use and reports he has 2 beers approximately 1x per week. The pts toxicology screen is negative. The pt is requesting discharge stating he has 2 appointments at the [facility] tomorrow. The pt has presented to [facility] ED 13x in the past 3 months with 8 of those visits related to depression, SI or anxiety. The pt has 2 past psychiatric hospitalizations for SI, [facility] 2017 and [facility]. The pt was discharged September 2017 and [facility] The pt reports he stopped the IOP due to not wanting 2 psychiatric providers. The pt stated he feels well connected to his psychiatrist at [facility] Dr. Macy Jovel. The pt also stated he stopped taking his Celexa approximately 2 weeks ago. The pt stated his plan is to talk with his son in [place] about moving to [place]. The pt reports this son shows an active interest in a relationship with the pt but relocated out of state due to work. The pt also stated he is going to renew his membership at the [employer] since he is often lonely. The pt presents future oriented and discussed an appt he already has scheduled to complete his taxes. [facility] for medication management with Dr. Jovel and an annual vision check. The pt lives alone in an apartment and retired from the [employer] in 1983. Pts hx and current presentation discussed with Dr. Diaz, plan is for discharge from the ED to outpatient services at the [facility]. The pt stated he is in agreement with this plan. Patient's Address: [address] [place] [address] Other Phone Number: Who Do You Live With? Patient/Self Family/Informants Interviewed: no family/collateral ID'd Allergies - Coded Allergies: aspirin (RELATED TO BEING ON WARFARIN 07/23/16) Current Medications - Scheduled Medications Atorvastatin Calcium (Lipitor) 80 MG TABLET 0.5 TAB PO QPM CHOLESTEROL ( Reported) Entered as Reported by Sherry Maurice on 01/16/16 1546 Budesonide/Formoterol Fumarate (Symbicort 80-4.5 Mcg Inhaler) 10.2 GM HFA.AER.AD 2 PUF INH BID COPD (Reported) Entered as Reported by Sherry Maurice on 01/16/16 1544 Citalopram Hydrobromide (Citalopram HBr) 20 MG TABLET 1.5 TAB PO DAILY depression #21 TAB Prescribed by Adrian Bourne MD on 09/13/17 Cyanocobalamin (Vitamin B-12) 1,000 MCG TABLET 1 TAB PO DAILY SUPPLEMENT ( Reported) Entered as Reported by Sherry Maurice on 06/18/17 1555 Dabigatran Etexilate Mesylate (Pradaxa 150 MG) 150 MG CAPSULE 1 CAP PO BID BLOOD THINNER (Reported) Entered as Reported by Sherry Maurice on 01/16/16 1543 Furosemide (Lasix) 20 MG TABLET 1 TAB PO QAM DIURETIC (Reported) Entered as Reported by Sherry Maurice on 01/16/16 1544 Metoprolol Tartrate (Lopressor) 50 MG TABLET 1.5 TAB PO BID BP (Reported) Entered as Reported by Sherry Maurice on 01/16/16 1545 Mirtazapine 7.5 MG TABLET 7.5 MG PO AT BEDTIME depression/sleep #14 TAB Prescribed by Adrian Bourne MD on 09/13/17 Multivitamin (One Daily Multivitamin) 1 EACH TABLET 1 TAB PO DAILY vitamin supplement #14 TAB Prescribed by Adrian Bourne MD on 09/13/17 Naltrexone HCl 50 MG TABLET 1 TAB PO DAILY ETOH (Reported) Entered as Reported by Siri Walker on 10/28/17 0535 Thiamine HCl (B-1) 100 MG TABLET 2 TAB PO DAILY SUPPLEMENT (Reported) Entered as Reported by Sherry Maurice on 06/18/17 1552 Scheduled PRN Medications Acetaminophen (Tylenol) 325 MG TABLET 2 TAB PO Q6H PRN PAIN (Reported) Entered as Reported by Danita Rodriguez on 05/13/16 0659 Albuterol Sulfate (Proair Hfa) 8.5 GM HFA.AER.AD 1 PUF INH Q6H PRN SOB ( Reported) Entered as Reported by Sherry Maurice on 01/16/16 1548 Docusate Sodium 100 MG CAPSULE 1 CAP PO BID PRN STOOL SOFTENER (Reported) Entered as Reported by Sherry Maurice on 01/16/16 1547 Sildenafil Citrate (Viagra) 50 MG TABLET 1 TAB PO AD PRN ED (Reported) Entered as Reported by Sherry Maurice on 06/18/17 1550 Durable Medical Equipment [NEBULIZER] #1 ASTHMA #1 Prescribed by Ted Limon MD on 01/16/16 Laboratory Results: Laboratory Tests 11/05/17 0700: Serum Alcohol < 10.0 11/05/17 0700: Anion Gap 9, Estimated GFR > 60, BUN/Creatinine Ratio 15.5, Glucose 160 H, Calcium 8.9, Total Bilirubin 0.6, Direct Bilirubin 0.2, AST 23, ALT 28, Alkaline Phosphatase 81, Troponin I < 0.01, Total Protein 6.5, Albumin 3.6, Amylase 55, Lipase 108, D-Dimer High Sensitivty < 200, CBC w Diff NO MAN DIFF REQ, RBC 4.10 L, MCV 102.2 H, MCH 32.6 H, MCHC 31.9 L, RDW 12.8, MPV 8.0, Gran % 60.7, Lymphocytes % 24.1, Monocytes % 9.7 H, Eosinophils % 5.0, Basophils % 0.5, Absolute Granulocytes 2.7, Absolute Lymphocytes 1.1 L, Absolute Monocytes 0.4, Absolute Eosinophils 0.2, Absolute Basophils 0, Urine Opiates Screen < 100.00, Methadone Screen < 40, Barbiturate Screen < 60, Ur Phencyclidine Scrn < 6.00, Amphetamines Screen < 100, U Benzodiazepines Scrn < 85, Urine Cocaine Screen < 50, Urine Cannabis Screen < 5.00, Urine Color YEL, Urine Clarity CLEAR, Urine pH 6.0, Ur Specific [place] 1.015, Urine Protein NEG, Urine Ketones NEG, Urine Nitrite NEG, Urine Bilirubin NEG, Urine Urobilinogen 0.2, Ur Leukocyte Esterase NEG, Ur Microscopic EXAM NOT REQUIRED, Urine Hemoglobin NEG, Urine Glucose NEG Past History Past Medical History Neurological: NONE EENT: NONE Cardiovascular: AFIB, hypertension, hyperlipidemia Respiratory: asthma Gastrointestinal: NONE Hepatic: NONE Renal: NONE Musculoskeletal: NONE Psychiatric: depression Endocrine: NONE Blood Disorders: NONE Cancer(s): 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 Reason for Treatment depression, SI, Anxiety Dates of Treatment 2017- present Response to Treatment fair Diagnosis by History: Depression/ anxiety Substance Use/Abuse History Drug Use/Abuse Substances Used/Abused Yes Substance Used/Abused Alcohol First Use pt unable to identify Last Used pt reports 3-4 days ago How much used/taken 2 beers How often 1x per week For how long long hx Route of use oral Substance Abuse Treatment Substance Abuse Treatment Past Substance Abuse [place] No Current Mental Status Mental Status Orientation: Person, Place, Situation Affect: Appropriate, WNL Speech: WNL Neuro-vegetative: WNL Appearance Appearance- Dress/Hygiene: appropriate Behaviors Thought Process: WNL Thought Content: WNL Memory: WNL Insight: Fair SI/HI Risk Assessment Past Suicidal Ideation/Attempts Yes Current Suicidal Ideation/Att No Past Homicidal Ideation/Att: No Current Homicidal Ideation/Attempts No Degree of Intent: None Danger To: n/a Gravely Disabled: n/a Risk Factors: age (under 24/over 65), SA/MH hospitalized, lives alone, male, limited support Lethality Ratin (mild) PTSD Checklist PTSD Done? patient declined (Denies Trauma) ED Management Sitter: Yes Restraints: No DSM5/PS Stressors/Medical Prob Diagnosis' (DSM 5, Stressors, Medical): F32.9 Unspecified Depressive Disorder F41.9 Unspecified Anxiety Disorder Current GAF: 49 Departure Disposition Psych Medical Clearance Date: 11/05/17 Medically Cleared at: 0825 Time Started: 824 Time Ended: 854 Psychiatrist Consulted: Dr. Diaz Date Disposition Established: 11/05/17 Time Disposition Established: 920 Plan for Disposition - Modality: Outpatient Facility: [facility] Follow-up Appt Date: 11/06/17 Follow-Up Appt Time: 1330 Rationale for Disposition: Pt is not in need of hospitalization. Referrals Carmina Euceda MD (PCP/Family)
[2017-11-05 11:33] VITALS: BP 156/82
== END 2017-11-05 11:56 ==
LOC: ERH 06:49
PROVIDERS: Pediatrics
DX: F41.9 Anxiety disorder, unspecified (principal); R06.02 Shortness of breath; R07.9 Chest pain, unspecified
CPT/HCPCS: 71045; 80307; 81003; 93005; 93010; G0463; G0480

== ENCOUNTER 2017-11-05 19:08 | Emergency (ER) | payer OTHER ==
[~2017-11-05] VITALS: Ht 190.5 cm; Wt 117.0 kg
--- NOTE | 2017-11-05 19:23 | ED GENERAL ADULT ---
History of Present Illness General Chief Complaint: General Adult Stated Complaint: BIBA ANXIETY Source: patient, old records, EMS Exam Limitations: no limitations Vital Signs & Intake/Output Vital Signs & Intake/Output Vital Signs Date Time Temp Pulse Resp B/P B/P Pulse O2 O2 Flow FiO2 Mean Ox Delivery Rate 11/06 1037 97.5 98 18 145/75 11/06 0618 97.4 63 18 147/76 97 Room Air 11/06 0013 97.4 54 18 120/59 95 Room Air 11/05 2243 Room Air 11/05 2152 62 20 144/76 97 11/05 1918 97.9 67 18 146/78 97 Room Air ED Intake and Output 11/06 0000 11/05 1200 Intake Total Output Total Balance Patient 258 lb Weight Weight Reported by Patient Measurement Method Allergies Coded Allergies: aspirin (RELATED TO BEING ON WARFARIN 07/23/16) Reconcile Medications Acetaminophen (Tylenol) 325 MG TABLET 2 TAB PO Q6H PRN PAIN (Reported) Albuterol Sulfate (Proair Hfa) 8.5 GM HFA.AER.AD 1 PUF INH Q6H PRN SOB ( Reported) Atorvastatin Calcium (Lipitor) 80 MG TABLET 0.5 TAB PO QPM CHOLESTEROL ( Reported) Budesonide/Formoterol Fumarate (Symbicort 80-4.5 Mcg Inhaler) 10.2 GM HFA.AER.AD 2 PUF INH BID COPD (Reported) Citalopram Hydrobromide (Citalopram HBr) 20 MG TABLET 1.5 TAB PO DAILY depression Cyanocobalamin (Vitamin B-12) 1,000 MCG TABLET 1 TAB PO DAILY SUPPLEMENT ( Reported) Dabigatran Etexilate Mesylate (Pradaxa 150 MG) 150 MG CAPSULE 1 CAP PO BID BLOOD THINNER (Reported) Docusate Sodium 100 MG CAPSULE 1 CAP PO BID PRN STOOL SOFTENER (Reported) Furosemide (Lasix) 20 MG TABLET 1 TAB PO QAM DIURETIC (Reported) Metoprolol Tartrate (Lopressor) 50 MG TABLET 1.5 TAB PO BID BP (Reported) Mirtazapine 7.5 MG TABLET 7.5 MG PO AT BEDTIME depression/sleep Multivitamin (One Daily Multivitamin) 1 EACH TABLET 1 TAB PO DAILY vitamin supplement Naltrexone HCl 50 MG TABLET 1 TAB PO DAILY ETOH (Reported) Sildenafil Citrate (Viagra) 50 MG TABLET 1 TAB PO AD PRN ED (Reported) 1 hour before sexual activity Thiamine HCl (B-1) 100 MG TABLET 2 TAB PO DAILY SUPPLEMENT (Reported) Triage Note: BIBA FOR ANXIETY. PT WAS SEEN HERE EARLIER TODAY. PT STATES THAT WHEN LAYS DOWN, "BAD THOUGHTS START" AND HE FEELS LIKE HE IS GOING TO . PT IS CALM, VITAL SIGNS STABLE AND IN NO PAIN. DENIES SI/HI. TO . Triage Nurses Notes Reviewed? yes HPI: Patient was seen in the emergency department this morning for her dyspnea. Patient was worked up and eventually was sent home. Patient was feeling better. Patient has a history of multiple ED visits for anxiety. The patient was also seen by case management this morning. The patient states that he felt fine all day and made himself a dinner that included pasta with sauce and meatballs. Patient ate that and then realized that he had no one to talk to. He decided to go to bed. When he laid down he began to feel very anxious. He denies any chest pain, orthopnea, dyspnea or dyspnea on exertion. There is no nausea or vomiting. There was no burning sensation. There is no headache or blurry vision. The patient: "Walked around and still felt anxious. He attempted to lay down and still felt anxious and called 911. Patient states that now he is in the emergency Department he is feeling much better. (Robb SHERWOOD,Johan Davis) Past History Travel History Traveled to [place] past 21 day No Medical History Any Pertinent Medical History? 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 FATHER ([place], [place]). Hx Contributory? No (Robb SHERWOOD,Johan Davis) Review of Systems Review of Systems Constitutional: Reports: no symptoms. EENTM: Reports: no symptoms. Respiratory: Reports: no symptoms. Cardiovascular: Reports: no symptoms. GI: Reports: no symptoms. Genitourinary: Reports: no symptoms. Musculoskeletal: Reports: no symptoms. Skin: Reports: no symptoms. Neurological/Psychological: Reports: see HPI, anxiety. Hematologic/Endocrine: Reports: no symptoms. Immunologic/Allergic: Reports: no symptoms. All Other Systems: Reviewed and Negative (Robb SHERWOOD,Johan Davis) Physical Exam Physical Exam General Appearance: well developed/nourished, alert, awake, anxious, mild distress Head: atraumatic, normal appearance Eyes: Bilateral: PERRL, EOMI. Ears, Nose, Throat: normal pharynx, normal ENT inspection Neck: normal inspection, supple, full range of motion, NO JVD Respiratory: normal breath sounds, chest non-tender, no respiratory distress, lungs clear Cardiovascular: regular rate/rhythm, normal peripheral pulses Gastrointestinal: normal bowel sounds, soft, non-tender, no organomegaly Back: normal inspection, normal range of motion Extremities: normal inspection, normal capillary refill, normal range of motion Neurologic/Psych: no motor/sensory deficits, awake, alert, oriented x 3, normal mood/affect Skin: intact, normal color, warm/dry Lymphatic: no anterior cervical rosmery Core Measures ACS in differential dx? No CVA/TIA Diagnosis: No Sepsis Present: No Sepsis Focused Exam Completed? No (Robb SHERWOOD,Johan Davis) Progress Differential Diagnoses I considered the following diagnoses in my evaluation of the patient: [ANXIETY, AMI, PE, CHF] Plan of Care: Orders Procedure Date/time Status Regular Diet 11/06 B Active Add-on Test (ER Only) 11/06 0808 Active URINE DRUG SCREEN FOR ER ONLY 11/06 0808 Active ED CRISIS PSYCH CONSULT 11/06 0606 Active ETHANOL 11/06 0507 Complete TROPONIN LEVEL 11/06 0456 Complete EKG 11/06 0456 Active Current Medications Sig/Shanelle Start time Last Medication Dose Stop Time Status Admin Budesonide/ 2 PUF BID 11/06 1000 AC 11/06 Formoterol Fumarate 1037 (SYMBICORT) Citalopram 30 MG DAILY 11/06 1000 UNVr 11/06 Hydrobromide 1036 (Celexa) Dabigatran 150 MG BID 11/06 1000 UNVr 11/06 (PRADAXA) 1037 Furosemide 20 MG QAM 11/06 1000 UNVr 11/06 (Lasix) 1036 Metoprolol Tartrate 75 MG BID 11/06 1000 UNVr 11/06 (Lopressor) 1037 Laboratory Tests 11/06/17 0507: Troponin I < 0.01, Serum Alcohol < 10.0 WILL OBSERVE IN THE ER. PT SEEN EARLIER TODAY AND WAS WORKED UP. PT DENIES ANY CHEST PAIN, ORTHOPNEA, RUBIO, ANOREXIA, HIGHLY UNLIKELY TO BE AMI, PE Initial ED EKG: AFIB, nonspecific ST T wave chg Prior EKG: unchanged Hand-Off Endorsed To: Ángel Lester MD Endorsed Time: 0700 Pending: consult Comments: PT REMAINED CALM AND ASYMPTOMATIC. Primary 2017: Patient woke up and walk to the bathroom. Patient is complaining of left-sided chest pressure. Patient states this is not like he chest pain that he had yesterday morning when he came to the emergency department. The pain lasted approximately 5 minutes and then went away. There is no radiation. At its worst the pain was 4 out of 10. (Robb SHERWOOD,Johan Davis) Comments: Cleared by psychiatry for outpatient follow up (Ángel Lester MD) Departure Departure Disposition: HOME OR SELF CARE Clinical Impression Primary Impression: Anxiety Referrals: Carmina Euceda MD (PCP/Family) Additional Instructions: RETURN FOR ANY CONCERNS Departure Forms: Customer Survey General Discharge Information (Johan Zamudio MD) Departure Time of Disposition: 1145 Condition: Stable (Ángel Lester MD) Critical Care Note Critical Care Note Critical Care Time: non-applicable (Johan Zamudio MD)
--- NOTE | 2017-11-06 11:23 | ED PSYCH CRISIS CONSULTATION ---
Crisis Consult Basic Assessment Date of Consult: 11/06/17 Responsible Person/Accompanied By: self Insurance Authorization: Insurance #1: [facility] name[facility] Phone number: Policy number: [id number] Group number: [id number] Authorization number: ED Provider: Patient's ED Provider: Robb SHERWOOD,Johan Davis Primary Care Physician: Patient's PCP: Carmina Euceda MD PCP's Current Psychiatrist: Macy Jovel MD [phone] Chief Complaint: General Adult Patient's Quote: I'm no good again Present Illness: Pt is a 77 yo male presenting to [place] ED this morning with reports of anxiety. Pt has had multiple ED visits past week for similiar presentation. Pt reports not feeling good. Pt reports difficulty sleeping lately due to thoughts of dying. Pt reports he is in treatment with Dr Macy Jovel at the [facility] but he isn't prescribed an anti-anxiety medication. Pt denies SI/HI. Pt denying depression but complains about anxiety. Pt is a 24 yr [employer] active from [id number]. Pt had no previous mental health treatment hx until the Fall of 2015 after his son Syed moved to [place]. Pt reports having 5 children but is closest with Syed and feels lonely and disconnected. Pt reports having friends who help him get to appointments and also attending [employer] a couple of times of week. Pt reports having a couple of beers there when he goes. He reports last beer was on Monday. He denies other substance use. Pt is aware of [facility] but doesn't attend. Pt has prior inpatient admissions-March [address] [facility] and August 2017 [facility]. Pt discharged from [facility] to [facility] but didn't continue after intake. Pt has since begun tx at [facility]. Pt was scheduled for [facility] intake this morning but he called to cancel due to being in ED. Pt presents as calm, cooperative, amiable and OX3. Pt denies SI/HI and is future oriented discussing future plans to move to [facility]. Case reviewed with Dr Bourne with recommendation for pt to continue treatment at [facility] and for pt to discuss with provider to assess possible benefits of an anti-anxiety medication. Crisis able to reschedule [facility] Intake for November 16 at 9:30am and discussed with Lorna Whyte LCSW at [facility] clients resent presentations. Pt in agreement to discharge from ED [facility] Pt instructed to return to ED if symptoms return. Patient's Address: [address] [place] [address] [address] [place] [address] Other Phone Number: Who Do You Live With? Patient/Self Family/Informants Interviewed: collateral provided by Shannon Marquez LCSW at [facility] [phone] ext [phone]. . Pt scheduled to see Dr Jovel on November 21. Reviewed that pt has had multiple recent ED visits for anxiety and requested that Dr Jovel discuss an anti-anxiety med with pt during next appt. Allergies - Coded Allergies: aspirin (RELATED TO BEING ON WARFARIN 07/23/16) Current Medications - Scheduled Medications Atorvastatin Calcium (Lipitor) 80 MG TABLET 0.5 TAB PO QPM CHOLESTEROL ( Reported) Entered as Reported by Sherry Maurice on 01/16/16 1546 Budesonide/Formoterol Fumarate (Symbicort 80-4.5 Mcg Inhaler) 10.2 GM HFA.AER.AD 2 PUF INH BID COPD (Reported) Entered as Reported by Sherry Maurice on 01/16/16 1544 Citalopram Hydrobromide (Citalopram HBr) 20 MG TABLET 1.5 TAB PO DAILY depression #21 TAB Prescribed by Adrian Bourne MD on 09/13/17 Cyanocobalamin (Vitamin B-12) 1,000 MCG TABLET 1 TAB PO DAILY SUPPLEMENT ( Reported) Entered as Reported by Sherry Maurice on 06/18/17 1555 Dabigatran Etexilate Mesylate (Pradaxa 150 MG) 150 MG CAPSULE 1 CAP PO BID BLOOD THINNER (Reported) Entered as Reported by Sherry Maurice on 01/16/16 1543 Furosemide (Lasix) 20 MG TABLET 1 TAB PO QAM DIURETIC (Reported) Entered as Reported by Sherry Maurice on 01/16/16 1544 Metoprolol Tartrate (Lopressor) 50 MG TABLET 1.5 TAB PO BID BP (Reported) Entered as Reported by Sherry Maurice on 01/16/16 1545 Mirtazapine 7.5 MG TABLET 7.5 MG PO AT BEDTIME depression/sleep #14 TAB Prescribed by Adrian Bourne MD on 09/13/17 Multivitamin (One Daily Multivitamin) 1 EACH TABLET 1 TAB PO DAILY vitamin supplement #14 TAB Prescribed by Adrian Bourne MD on 09/13/17 Naltrexone HCl 50 MG TABLET 1 TAB PO DAILY ETOH (Reported) Entered as Reported by Siri Walker on 10/28/17 0535 Thiamine HCl (B-1) 100 MG TABLET 2 TAB PO DAILY SUPPLEMENT (Reported) Entered as Reported by Sherry Maurice on 06/18/17 1552 Scheduled PRN Medications Acetaminophen (Tylenol) 325 MG TABLET 2 TAB PO Q6H PRN PAIN (Reported) Entered as Reported by Danita Rodriguez on 05/13/16 0659 Albuterol Sulfate (Proair Hfa) 8.5 GM HFA.AER.AD 1 PUF INH Q6H PRN SOB ( Reported) Entered as Reported by Sherry Maurice on 01/16/16 1548 Docusate Sodium 100 MG CAPSULE 1 CAP PO BID PRN STOOL SOFTENER (Reported) Entered as Reported by Sherry Maurice on 01/16/16 1547 Sildenafil Citrate (Viagra) 50 MG TABLET 1 TAB PO AD PRN ED (Reported) Entered as Reported by hSerry Maurice on 06/18/17 1550 Durable Medical Equipment [NEBULIZER] #1 ASTHMA #1 Prescribed by Ted Limon MD on 01/16/16 Past History Past Medical History Neurological: NONE EENT: NONE Cardiovascular: AFIB, hypertension, hyperlipidemia Respiratory: asthma Gastrointestinal: NONE Hepatic: NONE Renal: NONE Musculoskeletal: NONE Psychiatric: depression Endocrine: NONE Blood Disorders: NONE Cancer(s): NONE CHANGE LEAD/Reproductive: NONE Past Surgical History Surgical History: non-contributory Psychosocial History Strengths/Capabilities: Able to articulate needs, motivated for treatment Physical Limitations (Interventions): unknown Psychiatric Treatment History Psych Treatment Psychiatric Treatment Yes Inpatient Treatment Yes Outpatient Treatment Yes Location of Treatment [facility]; [facility] Reason for Treatment depression/anxiety Dates of Treatment ED crisis consults began in Fall 2015 after son Syed moved to [place] Response to Treatment pt has had difficulty following treatment recommendations. [facility] by History: Depression/ anxiety Substance Use/Abuse History Drug Use/Abuse Substances Used/Abused Yes Substance Used/Abused Alcohol Last Used Monday How much used/taken 2 beers How often 2x/wk Substance Abuse Treatment Substance Abuse Treatment Past Substance Abuse TX No Inpatient Treatment No Outpatient Treatment No Comments: pt reports drinking a few beers about 2x/wk. Pt reports feels better when he doesn't drink. Current Mental Status Mental Status Orientation: Person, Place, Situation Affect: WNL Speech: WNL Neuro-vegetative: Sleep Disturbance Appearance Appearance- Dress/Hygiene: pt in sweater, dirty tshirt and pajama pants; pt makes good contact and appears alert and )X3. Behaviors Thought Process: WNL Thought Content: WNL Memory: WNL Insight: Fair SI/HI Risk Assessment Past Suicidal Ideation/Attempts Yes Current Suicidal Ideation/Att No Past Homicidal Ideation/Att: No Current Homicidal Ideation/Attempts No Degree of Intent: None Gravely Disabled: Poor Judgment Risk Factors: age (under 24/over 65), high anxiety/distress, SA/MH hospitalized, substance abuse, lives alone, male, limited support Lethality Ratin PTSD Checklist PTSD Done? patient declined ED Management Sitter: Yes Restraints: No DSM5/PS Stressors/Medical Prob Diagnosis' (DSM 5, Stressors, Medical): Generalized Anxiety Alcohol Use Current GAF: 40 Comments: pt reports anxiety related to thoughts of dying. Pt denies si/hi. Pt reports feeling lonely/disconnected from family since son Syed moved to [place] Departure Disposition Psych Medical Clearance Date: 11/06/17 Medically Cleared at: 0815 Time Started: 0815 Time Ended: 0900 Psychiatrist Consulted: Adrian Bourne MD Date Disposition Established: 11/06/17 Time Disposition Established: 1100 Plan for Disposition - Modality: Outpatient Facility: [facility] Follow-up Appt Date: 11/16/17 Follow-Up Appt Time: 929 Contact: [facility] [phone] Rationale for Disposition: Pt denies SI/HI. No grave disability. Pt reports frequent episodes of anxiety. Pt scheduled for [facility] appt for 11/16 and f/u with Dr Jovel on . Pt instructed to return to ED if symptoms remanifest. Referrals Carmina Euceda MD (PCP/Family)
[2017-11-06 11:48] VITALS: BP 148/82
== END 2017-11-06 11:53 ==
LOC: ERH 19:08
DX: F41.9 Anxiety disorder, unspecified (principal)
CPT/HCPCS: 80307; 93005; 93010; G0463; G0480; J3490

== ENCOUNTER 2017-11-06 15:06 | Emergency (ER) | payer OTHER ==
--- NOTE | 2017-11-06 16:30 | ED GENERAL ADULT ---
See Addendum History of Present Illness General Chief Complaint: General Adult Stated Complaint: SEEN THIS AM RETURN FOR WEAKNESS Source: patient, old records, EMS Exam Limitations: no limitations Vital Signs & Intake/Output Vital Signs & Intake/Output Vital Signs Date Time Temp Pulse Resp B/P B/P Pulse O2 O2 Flow FiO2 Mean Ox Delivery Rate 11/06 1811 78 19 132/81 98 Room Air 11/06 1554 97 Room Air 11/06 1514 98.2 80 18 120/77 98 Room Air Allergies Coded Allergies: aspirin (RELATED TO BEING ON WARFARIN 07/23/16) Reconcile Medications Acetaminophen (Tylenol) 325 MG TABLET 2 TAB PO Q6H PRN PAIN (Reported) Albuterol Sulfate (Proair Hfa) 8.5 GM HFA.AER.AD 1 PUF INH Q6H PRN SOB ( Reported) Atorvastatin Calcium (Lipitor) 80 MG TABLET 0.5 TAB PO QPM CHOLESTEROL ( Reported) Budesonide/Formoterol Fumarate (Symbicort 80-4.5 Mcg Inhaler) 10.2 GM HFA.AER.AD 2 PUF INH BID COPD (Reported) Citalopram Hydrobromide (Citalopram HBr) 20 MG TABLET 1.5 TAB PO DAILY depression Cyanocobalamin (Vitamin B-12) 1,000 MCG TABLET 1 TAB PO DAILY SUPPLEMENT ( Reported) Dabigatran Etexilate Mesylate (Pradaxa 150 MG) 150 MG CAPSULE 1 CAP PO BID BLOOD THINNER (Reported) Docusate Sodium 100 MG CAPSULE 1 CAP PO BID PRN STOOL SOFTENER (Reported) Furosemide (Lasix) 20 MG TABLET 1 TAB PO QAM DIURETIC (Reported) Metoprolol Tartrate (Lopressor) 50 MG TABLET 1.5 TAB PO BID BP (Reported) Mirtazapine 7.5 MG TABLET 7.5 MG PO AT BEDTIME depression/sleep Multivitamin (One Daily Multivitamin) 1 EACH TABLET 1 TAB PO DAILY vitamin supplement Naltrexone HCl 50 MG TABLET 1 TAB PO DAILY ETOH (Reported) Sildenafil Citrate (Viagra) 50 MG TABLET 1 TAB PO AD PRN ED (Reported) 1 hour before sexual activity Thiamine HCl (B-1) 100 MG TABLET 2 TAB PO DAILY SUPPLEMENT (Reported) Core Measure Meds Pre-Hospital pradaxa Triage Note: PT COMES TO ED VIA EMS FOR COMPLAINT OF RESOLVED DIZZINESS Triage Nurses Notes Reviewed? yes Onset: Just prior to arrival Duration: minute(s):, better, constant, gone now Timing: recent history Severity: moderate Modifying Factors: Improves With: rest. Worsens With: movement. HPI: Patient is receiving discharge from the emergency department and returns after drinking ilan randal and chips feeling weak and dizzy. He denies fever chills nausea vomiting diarrhea abdominal pain chest pain shortness breath headache dysuria rash bleeding. Past History Travel History Traveled to [place] past 21 day No Medical History Any Pertinent Medical History? 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 FATHER (cad, [place]). Hx Contributory? No Review of Systems Review of Systems Constitutional: Reports: see HPI, weakness. EENTM: Reports: no symptoms. Respiratory: Reports: no symptoms. Cardiovascular: Reports: no symptoms. GI: Reports: no symptoms. Genitourinary: Reports: no symptoms. Musculoskeletal: Reports: no symptoms. Skin: Reports: no symptoms. Neurological/Psychological: Reports: no symptoms. Hematologic/Endocrine: Reports: no symptoms. Immunologic/Allergic: Reports: no symptoms. All Other Systems: Reviewed and Negative Physical Exam Physical Exam General Appearance: well developed/nourished, alert, awake, anxious, mild distress, obese Head: atraumatic, normal appearance Eyes: Bilateral: normal appearance, PERRL, EOMI. Ears, Nose, Throat: normal pharynx, normal ENT inspection, hearing grossly normal, moist mucus membranes Neck: normal inspection, supple, full range of motion, no midline tenderness Respiratory: normal breath sounds, chest non-tender, no respiratory distress, quiet respiration, lungs clear Cardiovascular: regular rate/rhythm, normal peripheral pulses, norml femoral pulses equa Peripheral Pulses: 4+ carotid (R), 4+ carotid (L) Gastrointestinal: normal bowel sounds, soft, non-tender, no organomegaly Back: normal inspection, normal range of motion, no vertebral tenderness Extremities: normal inspection, normal capillary refill, normal range of motion, no edema, no ligament instability Neurologic/Psych: no motor/sensory deficits, awake, alert, oriented x 3, normal gait, normal mood/affect, 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 Skin: intact, normal color, warm/dry Lymphatic: no anterior cervical rosmery Core Measures ACS in differential dx? No CVA/TIA Diagnosis: No Sepsis Present: No Sepsis Focused Exam Completed? No Progress Differential Diagnoses I considered the following diagnoses in my evaluation of the patient: somatization depression malingering Plan of Care: Orders Procedure Date/time Status EKG 11/06 1515 Active Initial ED EKG: normal axis, normal intervals, normal p-waves, normal QRS complex, normal sinus rhythm, no ST T wave changes Prior EKG: unchanged Departure Departure Time of Disposition: 1720 Disposition: HOME OR SELF CARE Condition: Stable Clinical Impression Primary Impression: Weakness generalized Referrals: Carmina Euceda MD (PCP/Family) Departure Forms: Customer Survey General Discharge Information Critical Care Note Critical Care Note Critical Care Time: non-applicable
[2017-11-06 22:19] VITALS: BP 126/70
== END 2017-11-06 22:19 ==
LOC: ERH 15:06
DX: R53.1 Weakness (principal); I10 Essential (primary) hypertension; I48.91 Unspecified atrial fibrillation
CPT/HCPCS: 93005; 93010

== ENCOUNTER 2017-11-07 19:13 | Inpatient (IN) | payer OTHER ==
[~2017-11-07] VITALS: Ht 190.5 cm; Wt 114.4 kg
--- NOTE | 2017-11-07 22:33 | ED PSYCHIATRIC COMPLAINT ---
History of Present Illness General Chief Complaint: General Adult Stated Complaint: EVAL Source: patient Exam Limitations: no limitations Vital Signs & Intake/Output Vital Signs & Intake/Output Vital Signs Date Time Temp Pulse Resp B/P B/P Pulse O2 O2 Flow FiO2 Mean Ox Delivery Rate 11/08 1333 97.9 62 20 161/74 94 Room Air 11/08 1211 Room Air 11/08 0653 98.2 67 18 108/68 97 Room Air 11/08 0112 96.2 65 18 140/81 95 Room Air 11/07 1916 81 22 144/72 97 ED Intake and Output 11/08 0000 11/07 1200 Intake Total Output Total Balance Patient 178 lb Weight Allergies Coded Allergies: aspirin (RELATED TO BEING ON WARFARIN 07/23/16) Reconcile Medications Acetaminophen (Tylenol) 325 MG TABLET 2 TAB PO Q6H PRN PAIN (Reported) Albuterol Sulfate (Proair Hfa) 8.5 GM HFA.AER.AD 1 PUF INH Q6H PRN SOB ( Reported) Atorvastatin Calcium (Lipitor) 80 MG TABLET 0.5 TAB PO QPM CHOLESTEROL ( Reported) Budesonide/Formoterol Fumarate (Symbicort 80-4.5 Mcg Inhaler) 10.2 GM HFA.AER.AD 2 PUF INH BID COPD (Reported) Citalopram Hydrobromide (Citalopram HBr) 20 MG TABLET 1.5 TAB PO DAILY depression Cyanocobalamin (Vitamin B-12) 1,000 MCG TABLET 1 TAB PO DAILY SUPPLEMENT ( Reported) Dabigatran Etexilate Mesylate (Pradaxa 150 MG) 150 MG CAPSULE 1 CAP PO BID BLOOD THINNER (Reported) Docusate Sodium 100 MG CAPSULE 1 CAP PO BID PRN STOOL SOFTENER (Reported) Furosemide (Lasix) 20 MG TABLET 1 TAB PO QAM DIURETIC (Reported) Metoprolol Tartrate (Lopressor) 50 MG TABLET 1.5 TAB PO BID BP (Reported) Mirtazapine 7.5 MG TABLET 7.5 MG PO AT BEDTIME depression/sleep Multivitamin (One Daily Multivitamin) 1 EACH TABLET 1 TAB PO DAILY vitamin supplement Naltrexone HCl 50 MG TABLET 1 TAB PO DAILY ETOH (Reported) Sildenafil Citrate (Viagra) 50 MG TABLET 1 TAB PO AD PRN ED (Reported) 1 hour before sexual activity Thiamine HCl (B-1) 100 MG TABLET 2 TAB PO DAILY SUPPLEMENT (Reported) Triage Note: PER PT "ITS NO GOOD, I CANT STAY HOME." PT DENIES SI/HI WAS DISCHARGED EARLIER BUT JUST DOES NOT WISH TO STAY HOME Triage Nurses Notes Reviewed? yes HPI: Patient presents for evaluation of anxiety and depression that has gotten worse over the past few days. Patient has had repeated emergency department visits for the same symptoms and states he returned home at about 10:00 last night after an emergency department visit. He states he slept until about noon and when he awoke prepared breakfast. He then laid down repeatedly but was unable to sleep throughout the rest of the day. He has no other complaint at this time , denying chest pain shortness of breath or heart palpitations. He states he last used alcohol about 4 days ago and is being prescribed a medication to help with his alcohol cessation from his primary care physician. He denies cigarette smoking or drug use. (Ashly SHERWOOD,Ted Ruiz) Past History Travel History Traveled to [place] past 21 day No Medical History Any Pertinent Medical History? 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 FATHER ([place], [place]). Hx Contributory? No (Ashly SHERWOOD,Ted Ruiz) Review of Systems Review of Systems Constitutional: Reports: no symptoms. EENTM: Reports: no symptoms. Respiratory: Reports: no symptoms. Cardiovascular: Reports: no symptoms. GI: Reports: no symptoms. Genitourinary: Reports: no symptoms. Musculoskeletal: Reports: no symptoms. Skin: Reports: no symptoms. Neurological/Psychological: Reports: see HPI. Hematologic/Endocrine: Reports: no symptoms. Immunologic/Allergic: Reports: no symptoms. All Other Systems: Reviewed and Negative (Ashly SHERWOOD,Ted Ruiz) Physical Exam Physical Exam General Appearance: SEE BELOW Neurological/Psychiatric: SEE BELOW Comments: General: Alert, calm, cooperative Head: Normocephalic, atraumatic Eyes: Normal inspection, no nystagmus, EOMI Ears: Normal inspection Nose: Normal inspection Throat: Moist mucosa Neck: Supple, no goiter Heart: Regular rate and rhythm, no murmurs rubs or gallops Lungs: Clear to auscultation bilaterally with good air entry Abdomen: Soft nontender nondistended, normal bowel sounds Chest: Nontender Extremities: Normal range of motion grossly, no tremors present, no cyanosis clubbing or edema of the upper extremities Neurologic: cranial nerves II through XII grossly intact, speech clear, gait normal Psychiatric: No apparent delusions or hallucinations, no pressured speech or thought blocking, normal affect SAD PERSONS Done? patient not suicidal (Ashly SHERWOOD,Ted Ruiz) Progress Differential Diagnosis: depression, anxiety, insomnia/sleep deprivation,alcohol withdrawal Plan of Care: Orders Procedure Date/time Status Heart Healthy Diet 11/08 D Active Regular Diet 11/08 B Complete Lab Add-on Test 11/08 1319 Active Patient Data - inpatient psych 11/08 1313 Active Admit to inpatient psych 11/08 1313 Active GLYCOSYLATED HGB 11/08 0840 Complete URINE DRUGS OF ABUSE 11/08 0812 Complete ETHANOL 11/08 0812 Complete COMPREHENSIVE METABOLIC PANEL 11/08 0812 Complete CBC WITHOUT DIFFERENTIAL 11/08 0812 Complete Vital Signs 11/08 UNK Active Nursing Misc 11/08 UNK Active Alternative Nursing Therapy 11/08 UNK Active Activity/Ambulation 11/08 UNK Active ED CRISIS PSYCH CONSULT 11/07 2231 Active Current Medications Sig/Shanelle Start time Last Medication Dose Stop Time Status Admin Multivitamins 1 TAB DAILY@0800 11/09 0800 UNVr (Theragran Vitamins) Mirtazapine 7.5 MG AT BEDTIME 11/08 2200 UNVr (Remeron) Atorvastatin Calcium 40 MG 1700 11/08 1700 UNVr (Lipitor) Albuterol Sulfate 2 PUF Q6P PRN 11/08 1330 UNVr (Ventolin) Acetaminophen 650 MG Q6P PRN 11/08 1315 UNVr (Tylenol) Al Hydroxide/Mg 30 ML Q4-6 PRN PRN 11/08 1315 UNVr Hydroxide (Maalox Plus) Docusate Sodium 100 MG Q12P PRN 11/08 1315 UNVr (Colace) Magnesium Hydroxide 30 ML AT BEDTIME PRN 11/08 1315 UNVr (Milk Of Magnesia) Metoprolol Tartrate 75 MG BID 11/08 1139 UNVr 11/08 (Lopressor) 1317 Thiamine HCl 200 MG DAILY 11/08 1139 UNVr 11/08 (Vitamin B1) 1317 Budesonide/ 2 PUF BID 11/08 1138 UNVr 11/08 Formoterol Fumarate 1317 (SYMBICORT) Citalopram 30 MG DAILY 11/08 1138 UNVr 11/08 Hydrobromide 1317 (Celexa) Cyanocobalamin 1,000 MCG DAILY 11/08 1138 UNVr 11/08 (Vitamin B12) 1317 Dabigatran 150 MG BID 11/08 1138 UNVr 11/08 (PRADAXA) 131 Furosemide 20 MG DAILY 11/08 1138 UNVr 11/08 (Lasix) 1317 Laboratory Tests 11/08/17 1110: Urine Opiates Screen < 100.00, Methadone Screen < 40, Barbiturate Screen < 60, Ur Phencyclidine Scrn < 6.00, Amphetamines Screen < 100, U Benzodiazepines Scrn < 85, Urine Cocaine Screen < 50, Urine Cannabis Screen < 5.00 11/08/17 0840: Anion Gap 10, Estimated GFR > 60, BUN/Creatinine Ratio 18.0, Glucose 161 H, Hemoglobin A1c 6.6 H, Calcium 9.1, Total Bilirubin 0.9, AST 28, ALT 26, Alkaline Phosphatase 83, Total Protein 6.9, Albumin 3.8, Globulin 3.1, Albumin/ Globulin Ratio 1.2, CBC w Diff NO MAN DIFF REQ, RBC 4.11 L, MCV 100.7 H, MCH 33.9 H, MCHC 33.6, RDW 12.6, MPV 7.9, Gran % 73.0, Lymphocytes % 17.6 L, Monocytes % 7.0, Eosinophils % 2.2, Basophils % 0.2, Absolute Granulocytes 4.4, Absolute Lymphocytes 1.1 L, Absolute Monocytes 0.4, Absolute Eosinophils 0.1, Absolute Basophils 0, Serum Alcohol < 10.0 11/08 7:08 AM PATIENT SIGNED OUT TO ME BY DR NEUMANN, PENDING CRISIS EVALUATION. (Lea SHERWOOD,Cora) (Ashly SHERWOOD,Ted Ruiz) Hand-Off Endorsed To: Cora Tate MD Endorsed Time: 0700 Pending: consult (Eben SHERWOOD,Adrian Sanchez) Departure Departure Disposition: STILL A PATIENT Condition: Stable Clinical Impression Primary Impression: Anxiety Secondary Impressions: Insomnia Qualifiers: Insomnia type: unspecified Qualified Code: G47.00 - Insomnia, unspecified Referrals: Carmina Euceda MD (PCP/Family) Departure Forms: Customer Survey General Discharge Information (Ashly SHERWOOD,Ted Ruiz) Departure Time of Disposition: 1456 Psych Admission Note Psychiatric Admission: I have seen and evaluated GUNJAN JULIO SR. I have also reviewed all the pertinent lab results and diagnostic results. BERRYKurtisGUNJAN will be admitted to our inpatient Psychiatric unit for treatment and care. (Lea SHERWOOD,Cora)
[2017-11-08 08:53] LABS: ABSOLUTE BASOPHIL COUNT 0 /CUMM (0.0-0.2); ABSOLUTE EOSINOPHIL COUNT 0.1 /CUMM (0.0-0.7); ABSOLUTE GRANULOCYTE CT 4.4 /CUMM (1.4-6.5); ABSOLUTE LYMPH COUNT 1.1 /CUMM (1.2-3.4); ABSOLUTE MONOCYTE COUNT 0.4 /CUMM (0.10-0.60); BASOPHIL % 0.2 % (0.0-2.0); EOSINOPHIL % 2.2 % (0-5); HEMATOCRIT 41.4 % (42-52); MEAN CORPUSCULAR HGB 33.9 PG (27.0-31.0); MEAN CORPUSCULAR HGB CONC 33.6 G/DL (33.0-37.0); MEAN CORPUSCULAR VOLUME 100.7 FL (80.0-94.0); MEAN PLATELET VOLUME 7.9 FL (7.4-10.4); PLATELET COUNT 165 /CUMM (130-400); RBC DISTRIBUTION WIDTH 12.6 % (11.5-14.5); RED BLOOD CELL CT 4.11 /CUMM (4.70-6.10); WHITE BLOOD CELL COUNT 6.1 /CUMM (4.8-10.8)
--- NOTE | 2017-11-08 12:14 | ED PSYCH CRISIS CONSULTATION ---
Crisis Consult Basic Assessment Date of Consult: 11/08/17 Responsible Person/Accompanied By: self Insurance Authorization: Insurance #1: Insurance name: MEDICARE [facility] HMO Phone number: Policy number: [id number] Group number: [id number] Authorization number: ED Provider: Patient's ED Provider: Cora Tate MD Primary Care Physician: Patient's PCP: Carmina Euceda MD PCP's Current Psychiatrist: Dr. [place], [place] Chief Complaint: General Adult Patient's Quote: "Most of the time I'm happy and calm, but not today" Present Illness: Pt is a 77 year old [place] Laxmi HOWARDA to ED last night 11/07/17. Per Dr. Lee' note: "Patient presents for evaluation of anxiety and depression that has gotten worse over the past few days. Patient has had repeated emergency department visits for the same symptoms and states he returned home at about 10:00 last night after an emergency department visit. He states he slept until about noon and when he awoke prepared breakfast. He then laid down repeatedly but was unable to sleep throughout the rest of the day. He has no other complaint at this time , denying chest pain shortness of breath or heart palpitations". Today, 11/08/17, pt reports that most of the time he is happy and calm but not today. He states last night when he got home from the ED he went to sleep and was having a hard time falling asleep because of the light that comes in from the street that isn't covered by the shades. He reported he started talking to himself for example "Kike you need to go to sleep" "Kike stop thinking and go to sleep". He reports he couldn't shut off his thoughts so he called 911 to bring him back to the ED. Patient presents as lonely and depressed, stating he thinks about dying but has no plan to kill himself. Patient presents with anxiety-based racing thoughts that appear to keep him up at night and prevent him from sleeping. Pt reports he lost his best friend, a cat named "davida clark" in July 2017. Pt spoke at length about his family- children and grandchildren. Pt reports that he feels as though being admitted to [facility] would be helpful because his mood is very "low" but could not pick a number between 1-10, 1 being very low. Pt's utox was negative for all substances and his BAL was zero. Pt reports last drink was a beer "maybe a week ago". Crisis consulted with Dr. Bourne. Pt to be admitted to [facility] due to mulitple ED visits this week, thoughts about / dying and ongoing anxiety preventing patient from sleeping. While in ED, Arlette Caban, Homoeopath, came down to meet with patient. She provided pt her card and stated she will check in with the patient when he is discharged and be able to be an on-going resource for him. She reports she will assist pt with contact with [facility] in as he reported to her some concerns about his apartment. She will look into TEAM to see if he would be appropriate for these services through as well. Arlette informed that pt will be admitted to [facility]. Patient's Address: [address] [place] [address] Other Phone Number: Who Do You Live With? Patient/Self Family/Informants Interviewed: [facility] Pt [facility] intake on 11/16/17 and f/u appt with Dr. Jovel on 11/21/17 Allergies - Coded Allergies: aspirin (RELATED TO BEING ON WARFARIN 07/23/16) Current Medications - Scheduled Medications Atorvastatin Calcium (Lipitor) 80 MG TABLET 0.5 TAB PO QPM CHOLESTEROL ( Reported) Entered as Reported by Sherry Maurice on 01/16/16 1546 Budesonide/Formoterol Fumarate (Symbicort 80-4.5 Mcg Inhaler) 10.2 GM HFA.AER.AD 2 PUF INH BID COPD (Reported) Entered as Reported by Sherry Maurice on 01/16/16 1544 Citalopram Hydrobromide (Citalopram HBr) 20 MG TABLET 1.5 TAB PO DAILY depression #21 TAB Prescribed by Adrian Bourne MD on 09/13/17 Cyanocobalamin (Vitamin B-12) 1,000 MCG TABLET 1 TAB PO DAILY SUPPLEMENT ( Reported) Entered as Reported by Sherry Maurice on 06/18/17 1555 Dabigatran Etexilate Mesylate (Pradaxa 150 MG) 150 MG CAPSULE 1 CAP PO BID BLOOD THINNER (Reported) Entered as Reported by Sherry Maurice on 01/16/16 1543 Furosemide (Lasix) 20 MG TABLET 1 TAB PO QAM DIURETIC (Reported) Entered as Reported by Sherry Maurice on 01/16/16 1544 Metoprolol Tartrate (Lopressor) 50 MG TABLET 1.5 TAB PO BID BP (Reported) Entered as Reported by Sherry Maurice on 01/16/16 1545 Mirtazapine 7.5 MG TABLET 7.5 MG PO AT BEDTIME depression/sleep #14 TAB Prescribed by Adrian Bourne MD on 09/13/17 Multivitamin (One Daily Multivitamin) 1 EACH TABLET 1 TAB PO DAILY vitamin supplement #14 TAB Prescribed by Adrian Bourne MD on 09/13/17 Naltrexone HCl 50 MG TABLET 1 TAB PO DAILY ETOH (Reported) Entered as Reported by Siri Walker on 10/28/17 0535 Thiamine HCl (B-1) 100 MG TABLET 2 TAB PO DAILY SUPPLEMENT (Reported) Entered as Reported by Sherry Maurice on 06/18/17 1552 Scheduled PRN Medications Acetaminophen (Tylenol) 325 MG TABLET 2 TAB PO Q6H PRN PAIN (Reported) Entered as Reported by Danita Rodriguez on 05/13/16 0659 Albuterol Sulfate (Proair Hfa) 8.5 GM HFA.AER.AD 1 PUF INH Q6H PRN SOB ( Reported) Entered as Reported by Sherry Maurice on 01/16/16 1548 Docusate Sodium 100 MG CAPSULE 1 CAP PO BID PRN STOOL SOFTENER (Reported) Entered as Reported by Sherry Maurice on 01/16/16 1547 Sildenafil Citrate (Viagra) 50 MG TABLET 1 TAB PO AD PRN ED (Reported) Entered as Reported by Sherry Maurice on 06/18/17 1550 Durable Medical Equipment [NEBULIZER] #1 ASTHMA #1 Prescribed by Ted Limon MD on 01/16/16 Laboratory Results: Laboratory Tests 11/08/17 1110: Urine Opiates Screen < 100.00, Methadone Screen < 40, Barbiturate Screen < 60, Ur Phencyclidine Scrn < 6.00, Amphetamines Screen < 100, U Benzodiazepines Scrn < 85, Urine Cocaine Screen < 50, Urine Cannabis Screen < 5.00 11/08/17 0840: Anion Gap 10, Estimated GFR > 60, BUN/Creatinine Ratio 18.0, Glucose 161 H, Calcium 9.1, Total Bilirubin 0.9, AST 28, ALT 26, Alkaline Phosphatase 83, Total Protein 6.9, Albumin 3.8, Globulin 3.1, Albumin/Globulin Ratio 1.2, CBC w Diff NO MAN DIFF REQ, RBC 4.11 L, MCV 100.7 H, MCH 33.9 H, MCHC 33.6, RDW 12.6, MPV 7.9, Gran % 73.0, Lymphocytes % 17.6 L, Monocytes % 7.0, Eosinophils % 2.2, Basophils % 0.2, Absolute Granulocytes 4.4, Absolute Lymphocytes 1.1 L, Absolute Monocytes 0.4, Absolute Eosinophils 0.1, Absolute Basophils 0, Serum Alcohol < 10.0 Past History Past Medical History Neurological: NONE EENT: NONE Cardiovascular: AFIB, hypertension, hyperlipidemia Respiratory: asthma Gastrointestinal: NONE Hepatic: NONE Renal: NONE Musculoskeletal: NONE Psychiatric: depression Endocrine: NONE Blood Disorders: NONE Cancer(s): NONE HAND I BLOCKER/Reproductive: NONE Past Surgical History Surgical History: non-contributory Psychosocial History Strengths/Capabilities: Able to articulate needs, motivated for treatment Physical Limitations (Interventions): unknown Psychiatric Treatment History Psych Treatment Psychiatric Treatment Yes Inpatient Treatment Yes Outpatient Treatment Yes Location of Treatment [facility], [place] Reason for Treatment Depression/ Anxiety Dates of Treatment [facility]- 09/07/17- 09/13/17; [place]- [place] Response to Treatment fair Diagnosis by History: Depression/ anxiety Substance Use/Abuse History Drug Use/Abuse Substances Used/Abused Yes Substance Used/Abused Alcohol Last Used almost a week ago How much used/taken 2 beers How often 2x/week Substance Abuse Treatment Substance Abuse Treatment Past Substance Abuse [place] No Current Mental Status Mental Status Orientation: Person, Place, Situation Affect: WNL Speech: WNL Neuro-vegetative: Anhedonia, Energy Decreased, Helpless, Loss of Interest, Sleep Disturbance Appearance Appearance- Dress/Hygiene: pt presented in [facility] paper scrubs with a stapleton sweater on and his [place] hat on his stretcher. Behaviors Thought Process: WNL Thought Content: WNL Memory: WNL Insight: Fair SI/HI Risk Assessment Past Suicidal Ideation/Attempts Yes Current Suicidal Ideation/Att Yes (thoughts about dying) Past Homicidal Ideation/Att: No Current Homicidal Ideation/Attempts No Degree of Intent: Thoughts/No Intent Danger To: Self Risk Factors: age (under 24/over 65), chronic/serious med cond., high anxiety/ distress, SA/MH hospitalized, isolate/no social support, lives alone, male, limited support Lethality Ratin PTSD Checklist PTSD Done? patient declined ED Management Sitter: Yes Restraints: No DSM5/PS Stressors/Medical Prob Diagnosis' (DSM 5, Stressors, Medical): F32.9 Unspecified Depressive Disorder F41.1 Generalized Anxiety Disorder F10.10 Alochol Use Disorder Z60.2 Problem related to Living Alone Hypertension hyperlipidemia asthma Current GAF: 30 Departure Disposition Psych Medical Clearance Date: 11/08/17 Medically Cleared at: 0930 Time Started: 0945 Time Ended: 1015 Psychiatrist Consulted: Adrian Bourne MD Date Disposition Established: 11/08/17 Time Disposition Established: 1130 Plan for Disposition - Modality: Inpatient Psychiatry Facility: [facility] Rationale for Disposition: Pt has had mulitple visits to the ED in the last week and month of Oct overall for anxiety/depression. Pt reports thoughts of dying. Pt reports his sleep is disrurbed due to racing thoughts which appear to be anxiety related. Pt is not currently prescribed medication to treat anxiety. He would benefit from a inpatient stay to assist in decreasing anxiety and increasing his ability to sleep at night in order to return to his baseline. Type of IP Admission: Voluntary Referrals Carmina Euceda MD (PCP/Family)
--- NOTE | 2017-11-08 14:33 | IP CRISIS DIAG ASSESS PSYCH ---
Diagnostic Assessment Basic Assessment Insurance Authorization: Insurance #1: Insurance name: [facility] Phone number: Policy number: [id number] Group number: [id number] Authorization number: Pt authorized for 3 units of inpatient psychiatric care from 11/08/17-11/10/17, with review on 11/10/17. Auth # [id number]. If additional units are needed, please call leather case finisher Deanne Quiroz @ [facility] [id number] Primary Care Physician: Patient's PCP: Carmina Euceda MD PCP's Patient's Quote: "Most of the time I'm happy and calm, but not today" Present Illness: Pt is a 77 year old [place] Laxmi VILLALOBOS to ED last night 11/07/17. Per Dr. Lee' note: "Patient presents for evaluation of anxiety and depression that has gotten worse over the past few days. Patient has had repeated emergency department visits for the same symptoms and states he returned home at about 10:00 last night after an emergency department visit. He states he slept until about noon and when he awoke prepared breakfast. He then laid down repeatedly but was unable to sleep throughout the rest of the day. He has no other complaint at this time , denying chest pain shortness of breath or heart palpitations". Today, 11/08/17, pt reports that most of the time he is happy and calm but not today. He states last night when he got home from the ED he went to sleep and was having a hard time falling asleep because of the light that comes in from the street that isn't covered by the shades. He reported he started talking to himself for example "Kike you need to go to sleep" "Kike stop thinking and go to sleep". He reports he couldn't shut off his thoughts so he called 911 to bring him back to the ED. Patient presents as lonely and depressed, stating he thinks about dying but has no plan to kill himself. Patient presents with anxiety-based racing thoughts that appear to keep him up at night and prevent him from sleeping. Pt reports he lost his best friend, a cat named "davida clark" in July 2017. Pt spoke at length about his family- children and grandchildren. Pt reports that he feels as though being admitted to [facility] would be helpful because his mood is very "low" but could not pick a number between 1-10, 1 being very low. Pt's utox was negative for all substances and his BAL was zero. Pt reports last drink was a beer "maybe a week ago". [facility] consulted with Dr. Bourne. Pt to be admitted to [facility] due to mulitple ED visits this week, thoughts about / dying and ongoing anxiety preventing patient from sleeping. While in ED, Arlette Caban, Tree Faller, came down to meet with patient. She provided pt her card and stated she will check in with the patient when he is discharged and be able to be an on-going resource for him. She reports she will assist pt with contact with [facility] in as he reported to her some concerns about his apartment. She will look into TEAM to see if he would be appropriate for these services through as well. Arlette informed that pt will be admitted to [facility]. Patient's Address: [address] [place] [address] Other Phone Number: Who Do You Live With? Patient/Self Feel Safe Where You Live? Yes (but is lonely) Marital Status: (x2) Do You Have Children? Yes Ages? 50,50, 44,43, 42 Primary Language? Lao Language(s) Spoken At Home: Lao Family/Informants Interviewed: Crisis spoke with [place] on 11/06/17 when pt was seen by [facility] last. Pt has a [facility] intake on 11/16/17 and f/u appt with Dr. Jovel on 11/21/17 Allergies - Coded Allergies: aspirin (RELATED TO BEING ON WARFARIN 07/23/16) Current Medications - Scheduled Medications Atorvastatin Calcium (Lipitor) 80 MG TABLET 0.5 TAB PO QPM CHOLESTEROL ( Reported) Entered as Reported by Sherry Maurice on 01/16/16 1546 Budesonide/Formoterol Fumarate (Symbicort 80-4.5 Mcg Inhaler) 10.2 GM HFA.AER.AD 2 PUF INH BID COPD (Reported) Entered as Reported by Sherry Maurice on 01/16/16 1544 Citalopram Hydrobromide (Citalopram HBr) 20 MG TABLET 1.5 TAB PO DAILY depression #21 TAB Prescribed by Adrian Bourne MD on 09/13/17 Cyanocobalamin (Vitamin B-12) 1,000 MCG TABLET 1 TAB PO DAILY SUPPLEMENT ( Reported) Entered as Reported by Sherry Maurice on 06/18/17 1555 Dabigatran Etexilate Mesylate (Pradaxa 150 MG) 150 MG CAPSULE 1 CAP PO BID BLOOD THINNER (Reported) Entered as Reported by Sherry Maurice on 01/16/16 1543 Furosemide (Lasix) 20 MG TABLET 1 TAB PO QAM DIURETIC (Reported) Entered as Reported by Sherry Maurice on 01/16/16 1544 Metoprolol Tartrate (Lopressor) 50 MG TABLET 1.5 TAB PO BID BP (Reported) Entered as Reported by Sherry Maurice on 01/16/16 1545 Mirtazapine 7.5 MG TABLET 7.5 MG PO AT BEDTIME depression/sleep #14 TAB Prescribed by Adrian Bourne MD on 09/13/17 Multivitamin (One Daily Multivitamin) 1 EACH TABLET 1 TAB PO DAILY vitamin supplement #14 TAB Prescribed by Adrian Bourne MD on 09/13/17 Naltrexone HCl 50 MG TABLET 1 TAB PO DAILY ETOH (Reported) Entered as Reported by Siri Walker on 10/28/17 0535 Thiamine HCl (B-1) 100 MG TABLET 2 TAB PO DAILY SUPPLEMENT (Reported) Entered as Reported by Sherry Maurice on 06/18/17 1552 Scheduled PRN Medications Acetaminophen (Tylenol) 325 MG TABLET 2 TAB PO Q6H PRN PAIN (Reported) Entered as Reported by Danita Rodriguez on 05/13/16 0659 Albuterol Sulfate (Proair Hfa) 8.5 GM HFA.AER.AD 1 PUF INH Q6H PRN SOB ( Reported) Entered as Reported by Sherry Maurice on 01/16/16 1548 Docusate Sodium 100 MG CAPSULE 1 CAP PO BID PRN STOOL SOFTENER (Reported) Entered as Reported by Sherry Maurice on 01/16/16 1547 Sildenafil Citrate (Viagra) 50 MG TABLET 1 TAB PO AD PRN ED (Reported) Entered as Reported by Sherry Maurice on 06/18/17 1550 Durable Medical Equipment [NEBULIZER] #1 ASTHMA #1 Prescribed by Ted Limon MD on 01/16/16 Consequences of Psych Med Use: pt reports he is prescribed remeron for sleep but doesn't take it all the time. He may benefit from a medication to treat anxiety. Lab Results: Laboratory Tests 11/08/17 1110: Urine Opiates Screen < 100.00, Methadone Screen < 40, Barbiturate Screen < 60, Ur Phencyclidine Scrn < 6.00, Amphetamines Screen < 100, U Benzodiazepines Scrn < 85, Urine Cocaine Screen < 50, Urine Cannabis Screen < 5.00 11/08/17 0840: Anion Gap 10, Estimated GFR > 60, BUN/Creatinine Ratio 18.0, Glucose 161 H, Hemoglobin A1c 6.6 H, Calcium 9.1, Total Bilirubin 0.9, AST 28, ALT 26, Alkaline Phosphatase 83, Total Protein 6.9, Albumin 3.8, Globulin 3.1, Albumin/ Globulin Ratio 1.2, CBC w Diff NO MAN DIFF REQ, RBC 4.11 L, MCV 100.7 H, MCH 33.9 H, MCHC 33.6, RDW 12.6, MPV 7.9, Gran % 73.0, Lymphocytes % 17.6 L, Monocytes % 7.0, Eosinophils % 2.2, Basophils % 0.2, Absolute Granulocytes 4.4, Absolute Lymphocytes 1.1 L, Absolute Monocytes 0.4, Absolute Eosinophils 0.1, Absolute Basophils 0, Serum Alcohol < 10.0 Toxicology Screen Completed? 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 No Psychosocial History Strengths/Capabilities: Able to articulate needs, motivated for treatment Physical Limitations (Interventions): unknown Psychiatric Treatment History Psych Treatment Psychiatric Treatment Yes Inpatient Treatment Yes Outpatient Treatment Yes Location of Treatment [facility], [facility], [place] Reason for Treatment Depression/ Anxiety Dates of Treatment [facility]- 09/07/17- 09/13/17; [place]- current Response to Treatment fair Diagnosis by History: Depression/ anxiety Risk Factors: age (under 24/over 65), chronic/serious med cond., high anxiety/ distress, SA/MH hospitalized, isolate/no social support, lives alone, male, limited support Substance Use/Abuse History Drug Use/Abuse minimum 12mo Hx Substances Used/Abused Yes Substance Used/Abused Alcohol Last Used almost a week ago How much used/taken 2 beers How often 2x/week Route of use oral Substance Abuse Treatment Substance Abuse Treatment Past Substance Abuse [place] No Sexual History Sexually Active No Sexual Orientation Heterosexual Sexual Concerns: per records - Hasn't been sexually active "with a woman since 1993" Education History Highest Level of Education: did not complete HS Current Mental Status Mental Status Orientation: Person, Place, Situation Affect: WNL Speech: WNL Neuro-vegetative: Anhedonia, Energy Decreased, Helpless, Loss of Interest, Sleep Disturbance Appearance Appearance- Dress/Hygiene: pt presented in [facility] paper scrubs with a [place] sweater on and his [place] hat on his stretcher. Behaviors Thought Process: WNL Thought Content: WNL Memory: WNL Insight: Fair SI/HI Risk Assessment - Minimum 6mo History- Past Suicidal Ideation/Attempts Yes Current Suicidal Ideation/Att Yes (thoughts about dying) Past Homicidal Ideation/Att: No Current Homicidal Ideation/Attempts No Degree of Intent: Thoughts/No Intent Danger To: Self Risk Factors: age (under 24/over 65), chronic/serious med cond., high anxiety/ distress, SA/MH hospitalized, isolate/no social support, lives alone, male, limited support Lethality Ratin Needs/Init [place] Plan/Goals: Medication Evaluation - anxiety sx comphrensive psychosocial assessment Identify possible connections to peers in community AUDIT-C Questionnaire: AUDIT-C Questionnaire: Response Value ETOH use in the past year 2-4 times/week 3 # drinks typical/day 1 or 2 0 6 or > drinks per occasion Never 0 Total 3 DSM5/PS Stressors/Medical Prob Diagnosis' (DSM 5, Stressors, Medical): F32.9 Unspecified Depressive Disorder F41.1 Generalized Anxiety Disorder F10.10 Alcohol Use Disorder Z60.2 Problem related to Living Alone Hypertension hyperlipidemia asthma Current GAF: 30
[2017-11-08 19:13] VITALS: BP 144/69
[2017-11-08 19:49] VITALS: BP 144/69
[2017-11-09 07:42] VITALS: BP 137/70
--- NOTE | 2017-11-09 12:08 | CPS PROVIDER INIT ASMT PSYCH ---
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 Chief Complaint: "Most of the time I'm happy and calm, but not today" Reaction to Hospitalization: The patient was admitted voluntarily History of Present Illness Onset of Illness: Per Dr. Lee' note: "Patient presents for evaluation of anxiety and depression that has gotten worse over the past few days. Patient has had repeated emergency department visits for the same symptoms and states he returned home at about 10:00 last night after an emergency department visit. He states he slept until about noon and when he awoke prepared breakfast. He then laid down repeatedly but was unable to sleep throughout the rest of the day. He has no other complaint at this time, denying chest pain shortness of breath or heart palpitations". Circumstances Leading to Admission: Patient presents with anxiety-based racing thoughts that appear to keep him up at night and prevent him from sleeping. Pt reports he lost his best friend, a cat named "davida clark" in July 2017. Pt spoke at length about his family- children and grandchildren. Pt reports that he feels as though being admitted to [facility] would be helpful because his mood is very "low" but could not pick a number between 1-10, 1 being very low. Pt's utox was negative for all substances and his BAL was zero. Pt reports last drink was a beer "maybe a week ago". Problem(s) Justifying Need for Admission: Increasing anxiety and feeling a low mood feeling lonely Past Psychiatric History Past Diagnosis(es)- if any: F32.9 Unspecified Depressive Disorder F41.1 Generalized Anxiety Disorder F10.10 Alochol Use Disorder Z60.2 Problem related to Living Alone Hypertension hyperlipidemia asthma Past Precipitating Factors- if any: Loss and loneliness - Include inpatient and outpatient treatment Treatment History: The patient had been recently in Inpatient Psychiatry The patient has an outpatient psychiatrist with [facility] in the [place] her name is Dr. Camila Padron MD History of Suicide Attempts or Gestures The patient has no history of suicide attempts Substance Abuse History: Patient quit tobacco in 1988. He has been a drink a beer drinker most of his life but he denied abusing that and he denied that he has been drinking daily denied any illicit substance use Allergies: Coded Allergies: aspirin (RELATED TO BEING ON WARFARIN 07/23/16) Home Med List: Mirtazapine and Celexa - Include any medical condition(s) that may - impact the patient's recovery/remission Past History Medical History Neurological: NONE EENT: NONE Cardiovascular: AFIB, hypertension, hyperlipidemia Respiratory: asthma Gastrointestinal: NONE Hepatic: NONE Renal: NONE Musculoskeletal: NONE Psychiatric: depression Endocrine: NONE Blood Disorders: NONE Cancer(s): 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 History of MRSA: No History of VRE: No History of CDIFF: No Isolation History: Standard Influenza Vaccine: 09/07/17 Surgical History Surgical History: left neprectomy Psychiatric Family/Social Hx Family History Psychiatric Illness: Denied psychiatric history in the family Substance Use: Father was a drinker Suicides: Not clear, Father reportedly pulled out his IV line while he was at [facility] he at the age of 64 Social History Living Situation: Lives alone in his own apartment Significant Relationships (family/friends): Patient is twice , he has daughters in [place] and [place] He has sons in [facility] Education: 11th grade education Vocation/Occupation: He is retired, he was in the [employer] from [id number], 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 - #1 Recognizing dangerous situations. - #2 Coping Skills. - #3 Basic information about quitting. Status of Tobacco Cessation Counseling: Not Applicable Cessation Med Status Not Applicable Alcohol Screening - ETOH screen POS if BAL >=80 or Audit-C>= M4/F3 Audit-C Score from Diag Assess: 3 Blood Alcohol Level: Laboratory Tests 11/08 0840 Toxicology Serum Alcohol (<10 MG/DL) < 10.0 Alcohol Use Screening Results: Neg per Audit C &/or BAL - If ETOH counseling indicated - the following topics are required. - #1 Express concern about the patient's - drinking at unhealthy levels, include informing - of national norms for moderate drinking: - men <= 14 drinks/week, max 4 drinks/occasion - women <= 7 drinks/week, max 3 drinks/occasion - #2 Providing feedback, including linking alcohol to - negative physical effects (liver injury, hypertension) - negative emotional effects (relationship problems and - depression) - negative occupational consequences (reduced work - performance) - #3 Advising the patient to abstain from alcohol or - to drink below national norms for moderate drinking - (as listed above). Status of ETOH Use Counseling: N/A B/C NO ETOH Use Metabolic Screening - Screen if on a Neuroleptic Medication - Metabolic screening should include: - Blood Pressure, BMI, Glucose or Hgb A1c, & a - Lipid profile from within the past 365 days. Metabolic Screening ([X]) Not Applicable, patient not on a neuroleptic. Exam and Plan Mental Status Examination Ambulation Status: Steady gait Appearance: Unremarkable Attitude towards examiner: Calm and cooperative Psychomotor activity: Normal psychomotor activity for age Behavior: No abnormal behaviors, no bizarre behaviors Quality of speech: Normal speech, not pressured, not slurred Affect: Full range of affect Mood: "Okay" Suicidal Ideation: Denied suicidal ideation today Homicidal Ideation: Denied homicidal ideation Hallucinations: Denied hallucinations Paranoid/Delusional Material: Denied feeling paranoid, there were no delusions Difficulties with thought organization: No difficulties with thought organization Insight: Partial insight Judgment: Questionable judgment Orientation: Alert and oriented to time place and person Cognition: Seems to have difficulties with attention concentration and information processing Memory Function: No gross impairment in memory but it was not formally tested Estimate of intellectual functioning: Average Assets/Strengths Patient Identified Assets/Strengths: Patient is likable and honest Impression/Plan Impression and Plan: 77-year-old twice white male who presents because of depression and anxiety. The patient had been previously with Inpatient Psychiatry before. 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 Factors: Abstinence from alcohol
[2017-11-09 12:39] VITALS: BP 127/70
--- NOTE | 2017-11-09 13:50 | History & Physical ---
General Information and HPI MD Statement: I have seen and personally examined GUNJAN JULIO and documented this H&P. The patient is a 77 year old M who presented with a patient stated chief complaint of unable to sleep. Source of Information: patient Exam Limitations: no limitations History of Present Illness: 77 y/o M with pmh sig for AFIB, hypertension, hyperlipidemia, asthma COPD admitted to [facility] with feeling anxious and depressed. He was having difficulty sleep. He was feeling ok but recently he has been feeling more anxious about everything. He has been going to bed but lays in bed without getting any sleep. he lives at home by himself. His children are living in [place] and [place] of [place]. Currently denies any cp, sob, abd pain. n/v/d/c, fevers, chils, no urinary complaints. Allergies/Medications Allergies: Coded Allergies: aspirin (RELATED TO BEING ON WARFARIN 07/23/16) Home Med list Acetaminophen (Tylenol) 325 MG TABLET 2 TAB PO Q6H PRN PAIN (Reported) Albuterol Sulfate (Proair Hfa) 8.5 GM HFA.AER.AD 1 PUF INH Q6H PRN SOB ( Reported) Atorvastatin Calcium (Lipitor) 80 MG TABLET 0.5 TAB PO QPM CHOLESTEROL ( Reported) Budesonide/Formoterol Fumarate (Symbicort 80-4.5 Mcg Inhaler) 10.2 GM HFA.AER.AD 2 PUF INH BID COPD (Reported) Citalopram Hydrobromide (Citalopram HBr) 20 MG TABLET 1.5 TAB PO DAILY depression Cyanocobalamin (Vitamin B-12) 1,000 MCG TABLET 1 TAB PO DAILY SUPPLEMENT ( Reported) Dabigatran Etexilate Mesylate (Pradaxa 150 MG) 150 MG CAPSULE 1 CAP PO BID BLOOD THINNER (Reported) Docusate Sodium 100 MG CAPSULE 1 CAP PO BID PRN STOOL SOFTENER (Reported) Furosemide (Lasix) 20 MG TABLET 1 TAB PO QAM DIURETIC (Reported) Metoprolol Tartrate (Lopressor) 50 MG TABLET 1.5 TAB PO BID BP (Reported) Mirtazapine 7.5 MG TABLET 7.5 MG PO AT BEDTIME depression/sleep Multivitamin (One Daily Multivitamin) 1 EACH TABLET 1 TAB PO DAILY vitamin supplement Naltrexone HCl 50 MG TABLET 1 TAB PO DAILY ETOH (Reported) Sildenafil Citrate (Viagra) 50 MG TABLET 1 TAB PO AD PRN ED (Reported) 1 hour before sexual activity Thiamine HCl (B-1) 100 MG TABLET 2 TAB PO DAILY SUPPLEMENT (Reported) Past History Travel History Traveled to [place] past 21 day No Medical History Neurological: NONE EENT: NONE Cardiovascular: AFIB, hypertension, hyperlipidemia Respiratory: asthma Gastrointestinal: NONE Hepatic: NONE Renal: NONE Musculoskeletal: NONE Psychiatric: depression Endocrine: NONE Blood Disorders: NONE Cancer(s): 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 FATHER ([place]). Psychosocial History Services at Home: None Review of Systems Review of Systems Constitutional: Reports: see HPI. EENTM: Reports: see HPI. Cardiovascular: Reports: see HPI. Respiratory: Reports: see HPI. GI: Reports: see HPI. Musculoskeletal: Reports: see HPI. Skin: Reports: see HPI. Neurological/Psychological: Reports: see HPI. Exam & Diagnostic Data Last 24 Hrs of Vital Signs/I&O Vital Signs Date Time Temp Pulse Resp B/P B/P Pulse O2 O2 Flow FiO2 Mean Ox Delivery Rate 11/09 1239 54 127/70 11/09 0742 97.3 73 137/70 11/08 1949 96.9 62 144/69 11/08 1913 96.9 62 144/69 11/08 1824 Room Air 11/08 1823 98.1 60 18 148/79 95 Room Air 11/08 1625 98.2 58 20 145/98 96 Intake & Output 11/09 1600 11/09 0800 11/09 0000 Intake Total Output Total Balance Patient 252 lb Weight Physical Exam General Appearance Alert, Oriented X3, Cooperative, No Acute Distress Skin No Rashes HEENT PERRLA Neck Supple Cardiovascular Regular Rate, Normal S1, Normal S2 Lungs Clear to Auscultation Abdomen Normal Bowel Sounds, Soft, No Tenderness Neurological Cranial Nerves II through XII: Intact Last 24 Hrs of Labs/Morgan: Laboratory Tests 11/08 11/08 1110 0840 Chemistry Sodium (137 - 145 mmol/L) 145 Potassium (3.5 - 5.1 mmol/L) 4.5 Chloride (98 - 107 mmol/L) 104 Carbon Dioxide (22 - 30 mmol/L) 31 H Anion Gap (5 - 16) 10 BUN (9 - 20 mg/dL) 18 Creatinine (0.7 - 1.2 mg/dL) 1.0 Estimated GFR (>60 ml/min) > 60 BUN/Creatinine Ratio (7 - 25 %) 18.0 Glucose (65 - 99 mg/dL) 161 H Hemoglobin A1c (4.2 - 5.8 %) 6.6 H Calcium (8.4 - 10.2 mg/dL) 9.1 Total Bilirubin (0.2 - 1.3 mg/dL) 0.9 AST (17 - 59 U/L) 28 ALT (21 - 72 U/L) 26 Alkaline Phosphatase (< 127 U/L) 83 Total Protein (6.3 - 8.2 g/dL) 6.9 Albumin (3.5 - 5.0 g/dL) 3.8 Globulin (1.9 - 4.2 gm/dL) 3.1 Albumin/Globulin Ratio (1.1 - 2.2 %) 1.2 Hematology CBC w Diff NO MAN DIFF REQ WBC (4.8 - 10.8 /CUMM) 6.1 RBC (4.70 - 6.10 /CUMM) 4.11 L Hgb (14.0 - 18.0 G/DL) 13.9 L Hct (42 - 52 %) 41.4 L MCV (80.0 - 94.0 FL) 100.7 H MCH (27.0 - 31.0 PG) 33.9 H MCHC (33.0 - 37.0 G/DL) 33.6 RDW (11.5 - 14.5 %) 12.6 Plt Count (130 - 400 /CUMM) 165 MPV (7.4 - 10.4 FL) 7.9 Gran % (42.2 - 75.2 %) 73.0 Lymphocytes % (20.5 - 51.1 %) 17.6 L Monocytes % (1.7 - 9.3 %) 7.0 Eosinophils % (0 - 5 %) 2.2 Basophils % (0.0 - 2.0 %) 0.2 Absolute Granulocytes (1.4 - 6.5 /CUMM) 4.4 Absolute Lymphocytes (1.2 - 3.4 /CUMM) 1.1 L Absolute Monocytes (0.10 - 0.60 /CUMM) 0.4 Absolute Eosinophils (0.0 - 0.7 /CUMM) 0.1 Absolute Basophils (0.0 - 0.2 /CUMM) 0 Toxicology Urine Opiates Screen (>2000 NG/ML) < 100.00 Methadone Screen (>300 NG/ML) < 40 Barbiturate Screen (>200 NG/ML) < 60 Ur Phencyclidine Scrn (>25 NG/ML) < 6.00 Amphetamines Screen (>1000 NG/ML) < 100 U Benzodiazepines Scrn (>200 NG/ML) < 85 Urine Cocaine Screen (>300 NG/ML) < 50 Urine Cannabis Screen (>50 NG/ML) < 5.00 Serum Alcohol (<10 MG/DL) < 10.0 Assessment/Plan Assessment: 77 y/o M with pmh sig for AFIB, hypertension, hyperlipidemia, asthma and COPD admitted to Inpatient Psychiatry with anxiety, depression and having sleep difficulties. Patient does state Pradaxa, metoprolol, Symbicort, pro-air, Lasix as his chronic medications. I would recommend continuing those at his home dose. I will leave the psychiatry management up to psychiatrist. As Ranked By This Provider Problem List: 1. Atrial fibrillation 2. COPD (chronic obstructive pulmonary disease) 3. HTN (hypertension) Miscellaneous Miscellaneous Documentation Attending Case Discussed With: Qian Carvalho MD Primary Care Physician: Carmina Euceda MD Patient sees these Specialists None Level of Patient Care: [facility]
[2017-11-09 15:51] VITALS: BP 103/50
--- NOTE | 2017-11-09 16:18 | SOCIAL WORKER SOCIAL HX PSYCH ---
Social History Basic Assessment Insurance Authorization: Insurance #1: Insurance name: [employer] [facility] Phone number: Policy number: [id number] Group number: [id number] Authorization number: Curr Source of Income/Entitlements: [facility], [facility] Primary Care Physician: Patient's PCP: Carmina Euceda MD PCP's Present Problem: Pt is a 77 year old Merrick Vet BIBA to ED last night 11/07/17. Per Dr. Lee' note: "Patient presents for evaluation of anxiety and depression that has gotten worse over the past few days. Patient has had repeated emergency department visits for the same symptoms and states he returned home at about 10:00 last night after an emergency department visit. He states he slept until about noon and when he awoke prepared breakfast. He then laid down repeatedly but was unable to sleep throughout the rest of the day. He has no other complaint at this time , denying chest pain shortness of breath or heart palpitations". Today, 11/08/17, pt reports that most of the time he is happy and calm but not today. He states last night when he got home from the ED he went to sleep and was having a hard time falling asleep because of the light that comes in from the street that isn't covered by the shades. He reported he started talking to himself for example "Kike you need to go to sleep" "Kike stop thinking and go to sleep". He reports he couldn't shut off his thoughts so he called 911 to bring him back to the ED. Patient presents as lonely and depressed, stating he thinks about dying but has no plan to kill himself. Patient presents with anxiety-based racing thoughts that appear to keep him up at night and prevent him from sleeping. Pt reports he lost his best friend, a cat named "davida clark" in July 2017. Pt spoke at length about his family- children and grandchildren. Pt reports that he feels as though being admitted to [facility] would be helpful because his mood is very "low" but could not pick a number between 1-10, 1 being very low. Pt's utox was negative for all substances and his BAL was zero. Pt reports last drink was a beer "maybe a week ago". Crisis consulted with Dr. Bourne. Pt to be admitted to [facility] due to mulitple ED visits this week, thoughts about / dying and ongoing anxiety preventing patient from sleeping. While in ED, Arlette Caban, Industrial Psychologist, came down to meet with patient. She provided pt her card and stated she will check in with the patient when he is discharged and be able to be an on-going resource for him. She reports she will assist pt with contact with [facility] in as he reported to her some concerns about his apartment. She will look into TEAM to see if he would be appropriate for these services through as well. Arlette informed that pt will be admitted to [facility]. Primary Language? Indian Language(s) Spoken At Home: Indian Living Situation Rents or Owns Home? rents Feel Safe Where You Are Living Yes Feel Safe in Relationships? Yes Allergies - Coded Allergies: aspirin (RELATED TO BEING ON WARFARIN 07/23/16) Current Medications - Scheduled Medications Atorvastatin Calcium (Lipitor) 80 MG TABLET 0.5 TAB PO QPM CHOLESTEROL ( Reported) Entered as Reported by Sherry Maurice on 01/16/16 1546 Last Taken: 11/08/17 1830 Budesonide/Formoterol Fumarate (Symbicort 80-4.5 Mcg Inhaler) 10.2 GM HFA.AER.AD 2 PUF INH BID COPD (Reported) Entered as Reported by Sherry Maurice on 01/16/16 1544 Last Taken: 11/08/17 1317 Citalopram Hydrobromide (Citalopram HBr) 20 MG TABLET 1.5 TAB PO DAILY depression #21 TAB Prescribed by Adrian Bourne MD on 09/13/17 Last Taken: 11/08/17 1317 Cyanocobalamin (Vitamin B-12) 1,000 MCG TABLET 1 TAB PO DAILY SUPPLEMENT ( Reported) Entered as Reported by Sherry Maurice on 06/18/17 1555 Last Taken: 11/08/17 1317 Dabigatran Etexilate Mesylate (Pradaxa 150 MG) 150 MG CAPSULE 1 CAP PO BID BLOOD THINNER (Reported) Entered as Reported by Sherry Maurice on 01/16/16 1543 Last Taken: 11/08/17 1317 Furosemide (Lasix) 20 MG TABLET 1 TAB PO QAM DIURETIC (Reported) Entered as Reported by Sherry Maurice on 01/16/16 1544 Last Taken: 11/08/17 1317 Metoprolol Tartrate (Lopressor) 50 MG TABLET 1.5 TAB PO BID BP (Reported) Entered as Reported by Sherry Maurice on 01/16/16 1545 Last Taken: 11/08/17 1317 Mirtazapine 7.5 MG TABLET 7.5 MG PO AT BEDTIME depression/sleep #14 TAB Prescribed by Adrian Bourne MD on 09/13/17 Last Taken: 11/07/17 2100 Multivitamin (One Daily Multivitamin) 1 EACH TABLET 1 TAB PO DAILY vitamin supplement #14 TAB Prescribed by Adrian Bourne MD on 09/13/17 Last Taken: At an unknown date and time Naltrexone HCl 50 MG TABLET 1 TAB PO DAILY ETOH (Reported) Entered as Reported by Siri Walker on 10/28/17 0535 Last Taken: At an unknown date and time Thiamine HCl (B-1) 100 MG TABLET 2 TAB PO DAILY SUPPLEMENT (Reported) Entered as Reported by Sherry Maurice on 06/18/17 1552 Last Taken: 11/08/17 1317 Scheduled PRN Medications Acetaminophen (Tylenol) 325 MG TABLET 2 TAB PO Q6H PRN PAIN (Reported) Entered as Reported by Danita Rodriguez on 05/13/16 0659 Last Taken: At an unknown date and time Albuterol Sulfate (Proair Hfa) 8.5 GM HFA.AER.AD 1 PUF INH Q6H PRN SOB ( Reported) Entered as Reported by Sherry Maurice on 01/16/16 1548 Last Taken: At an unknown date and time Docusate Sodium 100 MG CAPSULE 1 CAP PO BID PRN STOOL SOFTENER (Reported) Entered as Reported by Sherry Maurice on 01/16/16 1547 Last Taken: At an unknown date and time Sildenafil Citrate (Viagra) 50 MG TABLET 1 TAB PO AD PRN ED (Reported) Entered as Reported by Sherry Maurice on 06/18/17 1550 Last Taken: At an unknown date and time Durable Medical Equipment [NEBULIZER] #1 ASTHMA #1 Prescribed by Ted Limon MD on 01/16/16 Consequences of Psych Med Use: pt being seen by Dr Macy Jovel at [facility] for medications. Past History Past Medical History Neurological: NONE EENT: NONE Cardiovascular: AFIB, hypertension, hyperlipidemia Respiratory: asthma Gastrointestinal: NONE Hepatic: NONE Renal: NONE Musculoskeletal: NONE Psychiatric: depression Endocrine: NONE Blood Disorders: NONE Cancer(s): NONE NURSE LDR/Reproductive: NONE Past Surgical History Surgical History: non-contributory /Family History Place/Country of Origin: [place], [place] Childhood Family Constellation: Mother, Father, 2 Sisters & Brother Primary Childhood Caretakers: father, mother Family Life During Childhood: Patient states he had a good childhood. DCF Involvement? No Relationship w/Mother: "Good" Relationship w/Father: "Good" Any Sibling(s)? Yes Sibling's Gender(s)/Age(s): male Sibling 1:, female Sibling 2:, female Sibling 3: Relationship w/Sibling(s): "Good" Relationship w/Friends: "I have some friends at [employer] and [employer]" Family Psych/Sub Abuse/Add Hx: Patient states father drank beer on a regular basis, but no diagnosed issues. Other Comments: Pt reports difficulty managing anxiety began when son Syed moved to [place] last yr. Abuse/Trauma History Trauma History/Current Trauma: Denies History of Trauma/Abuse Treatment? No Abuse/Trauma Treatment: N/A Legal History Legal Guardian/Address/Phone: N/A Current Legal Status: none Have you ever been arrested No Hx of Juvenile Legal Charges? No Hx of Adult Legal Charges? Yes If Yes: misdemeanor List/Date Most Recent Lgl Chgs: 2009 Chgs/Dts/Incarcerations/Sentnc 2008-Public Disturbance Civil Proceedings: None Domestic Relations Court: N/A Child Protective Serv Involvmnt N/A Psychosocial History Primary Support System: son Strengths/Capabilities: Able to articulate needs, motivated for treatment Physical Limitations (Interventions): unknown Last Physical: 2014 History of Blackouts? No ADL Limitations: None [place]/Social/Peer Relations Patient states he has friends at [employer] Meaningful Activities: Golf Childhood Orthodox: Islam Current Adventism Affiliation: Islam Is Spirituality Important to You? 'Yes" Patient's Ethnicity: Nepali Cultural/Ethnic Issues: None noted Are There Developmental Issues? No Milestones Achieved: fine motor, gross motor Psychiatric Treatment History Psych Treatment Inpatient Treatment Yes Outpatient Treatment Yes Location of Treatment [facility], [facility], [facility] Reason for Treatment Depression/ Anxiety Dates of Treatment [facility]- 09[facility]07/17[facility] Treatment of Prior Episodes: [facility] and [facility] Diagnosis: Depression/ anxiety Psychodynamic Issues: Lack of social network Risk Factors: age (under 24/over 65), chronic/serious med cond., high anxiety/ distress, SA/MH hospitalized, isolate/no social support, lives alone, male, limited support Substance Use/Abuse History Drug Use/Abuse Substance Used/Abused Alcohol Last Used almost a week ago How much used/taken 2 beers How often 2x/week Route of use oral Have You Ever Attended ? No Symptoms of Use: drinks 1 or 2 beers approx 2x week Substance Abuse Treatment Substance Abuse Treatment Inpatient Treatment No Outpatient Treatment No Sexual History Sexually Active No Sexual Orientation Heterosexual Sexual Concerns: per records - Hasn't been sexually active "with a woman since 1993" Education History Highest Level of Education: did not complete Highest Grade Completed: 11th grade Vocational Year Completed: None Number of College Years: 0 College Degree/Major: N/A Other Degree(s): N/A HX of Learning Difficulties: None reported Barriers to Learning: None reported Special Communication Needs: None reported Employment History Employment Retired Not in Labor Force: Retired No. of Jobs in Last 5 Years: 0 Attendance: Retired for past 5 years+ Performance: Good Comments: Patient retired History Have You Been in The ? Yes If Yes, Explain: Patient served in the [employer] from 1959 to 1983 and is currently retired receiving benefits Type of Discharge: General Date of Discharge: 1983 Current Mental Status Mental Status Orientation: Person, Place, Situation Affect: WNL Speech: WNL Neuro-vegetative: Anhedonia, Energy Decreased, Helpless, Loss of Interest, Sleep Disturbance Appearance Appearance- Dress/Hygiene: [facility] with a stapleton sweater on and his Merrick hat on his stretcher. Behaviors Thought Process: WNL Thought Content: WNL Memory: WNL Insight: Fair SI/HI Risk Assessment Past Suicidal Ideation/Attempts Yes Current Suicidal Ideation/Att Yes (thoughts about dying) Past Homicidal Ideation/Att: No Current Homicidal Ideation/Attempts No Degree of Intent: Thoughts/No Intent Danger To: Self Lethality Ratin - Conclusion and Recommendations for treatment - and discharge planning Summary: Pt presents as calm, cooperative and OX3. Pt reports improved mood and feeling less anxiety. Pt reports feeling lonely and discussed missing his son Syed. He reports poor communication for rest of family. Reviewed importance of follow up with [facility] following discharge.
--- NOTE | 2017-11-09 16:56 | SOCIAL WORKER PROG NOTE PSYCH ---
Social Work Progress Note Progress Note 11am This property underwriter met with patient. He identified increased anxiety and depression as triggered by stress, (specifically decreased contact with family and bills) and difficulty sleeping. Patient stated that he continues to receive services through the [facility] [place] and did not continue with [facility] due to wanting to meet with the psychiatrist at the [facility]. Patient identified the need for increased supports and is willing to attend group therapy, such as IOP. Patient denied SI /HI/AH/VH. He was Ox3, spontaneous, engaged and appropriate during this meeting. Patient stated, "I want to be a happier person" and identified working to improve his sleep as a significant factor regarding the goal of becoming a happier person. [facility] as well as his son, Kike MalloryJr. Patient was agreeable to scheduling a family meeting with his son. 4:55pm This property underwriter left for patient's son, Kike, at [phone] requesting a call back. This property underwriter's number as well as the nursing station number was included in the message.
--- NOTE | 2017-11-09 18:00 | SOCIAL WORKER PROG NOTE PSYCH ---
Social Work Progress Note Progress Note This typewriter tester spoke with Roddy at [facility]. She stated that [facility] is secondary to Medicare and an auth does not need to be obtained unless they become primary.
[2017-11-09 19:42] VITALS: BP 119/62
--- NOTE | 2017-11-10 07:46 | CP SOUTH PROGRESS NOTE PSYCH ---
Psych (Inpt) Progress Note Progress Note Vital signs on 11/10/2017: Blood Pressure: 104/46 mmHg; Pulse Rate: 52/min. Temperature: 97.8 Mental Status Examination The patient was alert, and oriented to time, place, and person. He ambulates without a walker or a walking stick and has steady gait. He looks older than his stated age. He did not show any abnormal or bizarre behaviors. He was calm and cooperative and friendly. He reported that he met with the social studies department chair earlier and that he anticipates discharge next Monday. He denied having thoughts of suicide and denied having thoughts of violence or homicide. He showed normal psychomotor activity. His speech was normal. He showed reasonable range of affect. He reported he is not that depressed and he is not that anxious. Denied hallucinations, Denied feeling paranoid, there were no delusions, no difficulties with thought organization, partial insight, seems to have difficulties with attention concentration and information processing No gross impairment in memory but it was not formally tested Assessment: 77-year-old twice white male who presents because of depression and anxiety. The patient had been previously with Inpatient Psychiatry before. He does receive psychiatric services from the [facility] in [place]. Patient presents with anxiety-based racing thoughts that appear to keep him up at night and prevent him from sleeping. Pt reports he lost his best friend, a cat named "davida clark" in July 2017. Pt spoke at length about his family- children and grandchildren. Pt reports that he feels as though being admitted to [facility] would be helpful because his mood is very "low" but could not pick a number between 1-10, 1 being very low. Pt's utox was negative for all substances and his BAL was zero. Pt reports last drink was a beer "maybe a week ago". 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
[2017-11-10 08:10] VITALS: BP 128/52
[2017-11-10 12:03] VITALS: BP 104/46
--- NOTE | 2017-11-10 13:36 | SOCIAL WORKER PROG NOTE PSYCH ---
See Addendum Social Work Progress Note Progress Note 1:35pm This va underwriter left with clinical for [facility] ([phone], ext. [phone]) requesting additional/continued authorization for inpatient admission.
--- NOTE | 2017-11-10 14:03 | SOCIAL WORKER PROG NOTE PSYCH ---
See Addendum Social Work Progress Note Progress Note 11:20am This show card writer met with patient. Patient denied SI/HI/AH/VH. Patient was informed that this show card writer spoke with [facility] and learned that he would not be able to attend [facility] and [facility]. This show card writer offered to call the [facility] to inquire about mental health treatment that the have in addition to medication management with a psychiatrist. Patient declined, stating that it is challenging for him to attend frequent appointments at the [facility] due to transportation difficulties and the distance from home to the [facility]. Patient requested to be referred to [facility] and then transfer [facility] to the [facility] once he has completed the IOP. Patient and this show card writer also discussed ways to increase his social interactions. He identified the [facility] in [place] and stated that he would be interested in returning there. Patient discussed how he has benefitted from the groups here and would like to continue to attend groups. This show card writer contacted [facility] ([address] [place] [address], ) in interest of obtaining a calendar of events. This show card writer was informed that their monthly news letter can be obtained by visiting the [facility]. Patient was informed of this.
[2017-11-10 15:56] VITALS: BP 109/61
[2017-11-10 19:34] VITALS: BP 104/69
[2017-11-11 07:33] VITALS: BP 130/58
--- NOTE | 2017-11-11 10:32 | CP SOUTH PROGRESS NOTE PSYCH ---
Psych (Inpt) Progress Note Progress Note Include the following elements, when applicable: Involvement in the active treatment of the patient with behavioral observations of the patient and the patient's response to the treatment. Review of the ongoing treatment process in the context of the treatment plan. Indication of how multi-disciplinary staff members are carrying out the treatment plan. Plans for future interventions and recommendations for revision of the treatment plan. Liaison with other physicians/providers. Progress Note: Pt in good mood today, "very good." Notes no SI or HI. Decrease in pruritis at LE. Spoke at length about service (this provider asked). States LE edema is at baseline. Current Medications Sig/Shanelle Start time Last Medication Dose Route Stop Time Status Admin Acetaminophen 650 MG Q6P PRN 11/08 1315 AC PO Al Hydroxide/Mg 30 ML Q4-6 PRN PRN 11/08 1315 AC 11/09 Hydroxide PO 0330 Albuterol Sulfate 2 PUF Q6P PRN 11/08 1330 AC 11/09 INH 0411 Atorvastatin Calcium 40 MG 1700 11/08 1700 AC 11/10 PO 1706 Budesonide/ 2 PUF BID 11/08 1138 AC 11/11 Formoterol Fumarate INH 0856 Citalopram 30 MG DAILY 11/08 1138 AC 11/11 Hydrobromide PO 0856 Cyanocobalamin 1,000 MCG DAILY 11/08 1138 AC 11/11 PO 0853 Dabigatran 150 MG BID 11/08 1138 AC 11/11 PO 0853 Docusate Sodium 100 MG Q12P PRN 11/08 1315 AC 11/09 PO 0425 Furosemide 20 MG DAILY 11/08 1138 AC 11/11 PO 0853 Magnesium Hydroxide 30 ML AT BEDTIME PRN 11/08 1315 AC 11/09 PO 0426 Metoprolol Tartrate 75 MG BID 11/08 1139 AC 11/11 PO 0853 Mirtazapine 7.5 MG AT BEDTIME 11/08 2200 AC 11/10 PO 2143 Multivitamins 1 TAB DAILY@0800 11/09 0800 AC 11/11 PO 0853 Thiamine HCl 200 MG DAILY 11/08 1139 AC 11/11 PO 0853 Laboratory Tests 11/08 1110 Toxicology Urine Opiates Screen (>2000 NG/ML) < 100.00 Methadone Screen (>300 NG/ML) < 40 Barbiturate Screen (>200 NG/ML) < 60 Ur Phencyclidine Scrn (>25 NG/ML) < 6.00 Amphetamines Screen (>1000 NG/ML) < 100 U Benzodiazepines Scrn (>200 NG/ML) < 85 Urine Cocaine Screen (>300 NG/ML) < 50 Urine Cannabis Screen (>50 NG/ML) < 5.00 Vital Signs Date Time Temp Pulse Resp B/P B/P Pulse O2 O2 Flow FiO2 Mean Ox Delivery Rate 11/11 0733 96.7 65 130/58 11/10 1934 97.5 76 104/69 11/10 1556 77 109/61 11/10 1203 52 104/46 MSE General appearance: fair hygiene and grooming; Attitude: cooperative; Eye contact: appropriate; Movement: no psychomotor agitation or slowing; Speech: nl fluency, nl rate/rhythm, nl volume, nl prosody; Mood: "very good" Affect: bright, pleasant, flat, appropriate, constricted, non-labile, congruent; Thought process: linear and goal-directed; Thought content: denied SI or HI, no paranoid ideation; Perception: denied hallucinations- auditory, visual, does not appear to be responding to internal stimuli; I/J: limited A/P: Pt with MDD with SI now with improved mood. -Continue current medication regimen -Encourage integration into the milieu
[2017-11-11 12:00] VITALS: BP 114/52
[2017-11-11 15:39] VITALS: BP 117/65
[2017-11-11 19:47] VITALS: BP 134/72
[2017-11-12 07:29] VITALS: BP 142/79
--- NOTE | 2017-11-12 10:53 | CP SOUTH PROGRESS NOTE PSYCH ---
Psych (Inpt) Progress Note Progress Note Include the following elements, when applicable: Involvement in the active treatment of the patient with behavioral observations of the patient and the patient's response to the treatment. Review of the ongoing treatment process in the context of the treatment plan. Indication of how multi-disciplinary staff members are carrying out the treatment plan. Plans for future interventions and recommendations for revision of the treatment plan. Liaison with other physicians/providers. Progress Note: Pt reports in good mood today. Did obtain ear plugs as roomate snores very loudly and affecting his sleep. He spoke at length about his life, his service, and how much he likes the care he is recieving here. Denies SI or HI. Feels that a peer cut him off when he was speaking in group but "I'm going to let it go." Pt did shower today. He is attempting to grow a long junior like one of the ER staff members. Current Medications Sig/Shanelle Start time Last Medication Dose Route Stop Time Status Admin Acetaminophen 650 MG Q6P PRN 11/08 1315 AC PO Al Hydroxide/Mg 30 ML Q4-6 PRN PRN 11/08 1315 AC 11/09 Hydroxide PO 0330 Albuterol Sulfate 2 PUF Q6P PRN 11/08 1330 AC 11/09 INH 0411 Atorvastatin Calcium 40 MG 1700 11/08 1700 AC 11/11 PO 1635 Budesonide/ 2 PUF BID 11/08 1138 AC 11/12 Formoterol Fumarate INH 0803 Citalopram 30 MG DAILY 11/08 1138 AC 11/12 Hydrobromide PO 0802 Cyanocobalamin 1,000 MCG DAILY 11/08 1138 AC 11/12 PO 0801 Dabigatran 150 MG BID 11/08 1138 AC 11/12 PO 0802 Docusate Sodium 100 MG Q12P PRN 11/08 1315 AC 11/09 PO 0425 Furosemide 20 MG DAILY 11/08 1138 AC 11/12 PO 0801 Magnesium Hydroxide 30 ML AT BEDTIME PRN 11/08 1315 AC 11/09 PO 0426 Metoprolol Tartrate 75 MG BID 11/08 1139 AC 11/12 PO 0801 Mirtazapine 7.5 MG AT BEDTIME 11/08 2200 AC 11/11 PO 2115 Multivitamins 1 TAB DAILY@0800 11/09 0800 AC 11/12 PO 0801 Thiamine HCl 200 MG DAILY 11/08 1139 AC 11/12 PO 0801 Vital Signs Date Time Temp Pulse Resp B/P B/P Pulse O2 O2 Flow FiO2 Mean Ox Delivery Rate 11/12 728 96.3 76 142/79 11/11 1947 96.6 74 134/72 11/11 1539 65 117/65 11/11 1200 52 114/52 MSE General appearance: good hygiene and grooming; Attitude: cooperative; Eye contact: appropriate; Movement: no psychomotor agitation or slowing; Speech: nl fluency, nl rate/rhythm, nl volume, nl prosody; Mood: "very good again" Affect: bright, very pleasant, flat, appropriate, constricted, non-labile, congruent; Thought process: linear and goal-directed; Thought content: denied SI or HI, no paranoid ideation; Perception: denied hallucinations- auditory, visual, does not appear to be responding to internal stimuli; I/J: limited A/P: Pt with MDD with SI now with improved mood overall. -Continue current medication regimen -Encourage integration into the milieu
[2017-11-12 11:57] VITALS: BP 113/55
[2017-11-12 15:47] VITALS: BP 125/57
[2017-11-12 19:23] VITALS: BP 127/64
[2017-11-13 07:43] VITALS: BP 124/65
--- NOTE | 2017-11-13 08:58 | CP SOUTH PROGRESS NOTE PSYCH ---
Psych (Inpt) Progress Note Progress Note Vital Signs Date Time Temp Pulse B/P B/P Pulse Mean Ox 11/13 0743 97.6 64 124/65 03/ 1923 96.7 67 127/64 03/04 1547 66 125/57 03/04 1157 51 113/55 Patient's progress in treatment plan were reviewed in the treatment team meeting this morning. The treatment team included: Nursing staff, social work staff, group and activity therapy staff, and psychiatrist Mental Status Examination: The patient was alert, and oriented to time, place, and person. He looks older than his stated age. No abnormal or bizarre behaviors, he was calm, cooperative , and friendly. He denied having thoughts of suicide, and denied having thoughts of violence or homicide. He showed normal psychomotor activity, and his speech was normal. He showed reasonable range of affect. He reported he is not that depressed and he is not that anxious. He denied hallucinations, denied feeling paranoid, and there were no delusions during the interview. He does not have difficulties with thought organization, minor difficulties with attention, concentration, and information processing No gross impairment in memory Assessment: Florence is a 77-year-old twice White male who presents because of depression and anxiety. The patient had been previously with Inpatient Psychiatry before. He does receive psychiatric services from the [facility] in [place]. Patient presents with anxiety-based racing thoughts that appear to keep him up at night and prevent him from sleeping. Pt reports he lost his best friend, a cat named "davida clark" in July 2017. Pt spoke at length about his family- children and grandchildren. Pt reports that he feels as though being admitted to [facility] would be helpful because his mood is very "low" but could not pick a number between 1-10, 1 being very low. Diagnoses: F32.9 Unspecified Depressive Disorder F41.1 Generalized Anxiety Disorder F10.10 Alochol Use Disorder Z60.2 Problem related to Living Alone Hypertension hyperlipidemia Asthma COPD Atrial fibrillation Dyslipidemia Treatment Plan: Continue Celexa (citalopram) 30 mg daily continue Remeron (mirtazapine) 7.5 mg at bedtime Inpatient psychiatric care with safety checks every 15 minutes; Nursing assessments Vital signs, Patient education , Group therapy; Activity and milieu therapy; LAY OUT DRAFTER: biopsychosocial assessment, obtain collateral information, and set up aftercare plans; Psychiatrist to evaluate mental status daily and monitor medications
[2017-11-13 12:21] VITALS: BP 128/69
[2017-11-13 15:56] VITALS: BP 100/61
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
[2017-11-13 19:53] VITALS: BP 128/54
[2017-11-14 07:38] VITALS: BP 136/63
--- NOTE | 2017-11-14 08:05 | CP SOUTH PROGRESS NOTE PSYCH ---
Psych (Inpt) Progress Note Progress Note Vital Signs Date Time Temp Pulse B/P B/P Pulse O2 FiO2 11/14 0738 97.3 70 136/63 03 1953 97.6 83 128/54 11/13 1556 64 100/61 The patient's progress & treatment plan were reviewed in the treatment team meeting this morning. The treatment team included: Nursing staff, DRAIN TILER, group and activity therapy staff, and psychiatrist Mental Status Examination: Kike reported that he is feeling ready for discharge. He was alert, and oriented to time, place, and person. There were no abnormal or bizarre behaviors, he was calm, cooperative, and friendly. He denied having thoughts of suicide, and denied having thoughts of violence or homicide. He showed normal psychomotor activity, and his speech was normal. Kike reported he is not feeling depressed or anxious the past few days. He denied hallucinations, denied feeling paranoid, and there were no delusions during the interview. He does not have difficulties with thought organization. Kike has minor difficulties with attention, concentration, and information processing. No gross impairment in short-term memory. Assessment: Kike is a 77-year-old White male who was admitted to the inpatient psychiatric unit on 11/08/2017 because of depression and anxiety. The patient had been previously with Inpatient Psychiatry before. He does receive psychiatric services from the [facility] in [place]. Patient presents with anxiety- based racing thoughts that appear to keep him up at night and prevent him from sleeping. Pt reports he lost his best friend, a cat named "davida clark" in July 2017. Pt spoke at length about his family- children and grandchildren. Diagnoses: F32.9 Unspecified Depressive Disorder F41.1 Generalized Anxiety Disorder F10.10 Alochol Use Disorder Z60.2 Problem related to Living Alone Hypertension hyperlipidemia Asthma COPD; Atrial fibrillation; Dyslipidemia Treatment Plan: Increase Celexa (citalopram) to 40 mg daily May be discharged home if all aftercare plans are in place
--- NOTE | 2017-11-14 08:38 | Patient Discharge Instructions ---
Psych Discharge [facility] General Discharge Information Reason for Admission: "Patient presents for evaluation of anxiety and depression that has gotten worse over the past few days. Patient has had repeated emergency department visits for the same symptoms and states he returned home at about 10:00 last night after an emergency department visit. He states he slept until about noon and when he awoke prepared breakfast. He then laid down repeatedly but was unable to sleep throughout the rest of the day. He has no other complaint at this time , denying chest pain shortness of breath or heart palpitations". Psy Discharge Primary Diag+ Unspecified Depressive Disorder F32.9, Generalized Anxiety Disorder F41.1 Psy Discharge Secondary Diag+ F10.10 Alcohol Use Disorder, Mild Summary Tests/Major Procedures The patient had a mildly low hemoglobin and hematocrit. Hemoglobin was 13.9 and a hematocrit was 41.4%, otherwise the complete blood count did not have any major abnormalities Patient's hemoglobin A1c was slightly elevated at 6.6% Patient's lipid panel was within normal limits on September 07, 2017 Studies Pending at [facility]: None Patient Instructions Contact Information Your Psychiatrist on [facility] was Camilo Mccracken MD * If you are experiencing an emergency related to this hospitalization, please call [phone] to contact the treating psychiatrist or the psychiatrist-on- call. * To Request a copy of your medical records, please contact the Medical Records Department at [phone]. * To request results of studies pending at the time of discharge, please call [phone]. * Continue your Medications until directed to stop by your Healthcare provider. General Medication Information Please continue to take your new medications and your continued home medications , unless otherwise indicated on your discharge medication list, or unless directed by your MD or SERVICE AIDE to stop them. Special Instructions Diet Other (avoid concentrated sweets) Activity As Tolerated - Tobacco Use Treatment Offered Post DC Medications Offered: Not Applicable Post DC Tobacco Treatment Plan: Not Applicable - EtOH/Drug Use D/O Treatment Offered Post DC Medications Offered: NA-No EtOH/Drug Use D/O Post DC EtOH/SubAbuse TX Plan: NA-No EtOH/Drug Use D/O Metabolic Screening Not Applicable, patient not on a neuroleptic. Advance Directives Does the Patient have Medical Advance Directives No/Refused further info Does Pt have Psychiatric Advance Directives? No/Refused further info Does Patient have a Designated Surrogate Decision Maker: No Information About Psychiatric Advance Directives Provided? Refused Discharge Plan Post Hospital Treatment Plan: [facility]
[2017-11-14 12:19] VITALS: BP 137/59
--- NOTE | 2017-11-14 12:45 | DISCHARGE SUMMARY REPORT-PSYCH ---
Visit Information Visit Dates/Diagnosis' Admission Date: 11/08/2017 Discharge Date: 11/14/17 Reason for Admission: "for evaluation of anxiety and depression that has gotten worse over the past few days. Patient has had repeated emergency department visits for the same symptoms and states he returned home at about 10:00 last night after ED visit, states he slept until about noon and when he awoke prepared breakfast, laid down repeatedly but was unable to sleep throughout the rest of the day." Psy Discharge Primary Diag: Unspecified Depressive Disorder F32.9 Generalized Anxiety Disorder F41.1 Psy Discharge Secondary Diag: F10.10 Alcohol Use Disorder, Mild Hospital Course Significant Lab Findings: The patient had a mildly low hemoglobin and hematocrit. Hemoglobin was 13.9 and a hematocrit was 41.4%, otherwise the complete blood count did not have any major abnormalities Patient's hemoglobin A1c was slightly elevated at 6.6% Patient's lipid panel was within normal limits on September 07, 2017 Course Complications: The patient did not have any complications while he was on the inpatient psychiatric unit Consultations: The patient was seen on November 09, 2017 by the senior core java developer, Dr. Qian Carvalho MD, He Assessment indicated the following: A 77 y/o M with pmh sig for AFIB, hypertension, hyperlipidemia, asthma and COPD admitted to Inpatient Psychiatry with anxiety, depression and having sleep difficulties. Patient does state Pradaxa, metoprolol, Symbicort, pro-air, Lasix as his chronic medications. I would recommend continuing those at his home dose. Problem List: 1. Atrial fibrillation 2. COPD (chronic obstructive pulmonary disease) 3. HTN (hypertension) Allergies: Coded Allergies: aspirin (RELATED TO BEING ON WARFARIN 07/23/16) Hospital Course/TX Response: The patient presented to the crisis intervention at [facility]'s emergency department and the afternoon hours of November 08, 2017. The patient was admitted that evening to the inpatient psychiatric unit I did the initial psychiatric assessment in the next day on November 09, 2017. The patient was resumed on his previously prescribed medications as per his [facility]. The patient did not have any changes in his medications until November 14, 2017. The patient reported that he believes that his anxiety level continues to be elevated. I discussed pharmacological options with the patient and we agreed to increase the citalopram to 40 mg daily. The patient will not be starting this until tomorrow morning since he already took took today's dose and he is also leaving this afternoon after it was found out that his transportation problem to the intensive outpatient program would be resolved. The patient's condition on the day of discharge vital Signs Date Time Temp Pulse B/P B/P Pulse O2 FiO2 11/14 0738 97.3 70 136/63 03 1953 97.6 83 128/54 03 1556 64 100/61 The patient's progress & treatment plan were reviewed in the treatment team meeting this morning. The treatment team included: Nursing staff, DIRECTOR ORGANIZATIONAL, group and activity therapy staff, and psychiatrist Mental Status Examination: Kike reported that he is feeling ready for discharge. He was alert, and oriented to time, place, and person. There were no abnormal or bizarre behaviors, he was calm, cooperative, and friendly. He denied having thoughts of suicide, and denied having thoughts of violence or homicide. He showed normal psychomotor activity, and his speech was normal. Kike reported he is not feeling depressed or anxious the past few days. He denied hallucinations, denied feeling paranoid, and there were no delusions during the interview. He does not have difficulties with thought organization. Kike has minor difficulties with attention, concentration, and information processing. No gross impairment in short-term memory. Assessment: Kike is a 77-year-old White male who was admitted to the inpatient psychiatric unit on 11/08/2017 because of depression and anxiety. The patient had been previously with Inpatient Psychiatry before. He does receive psychiatric services from the [facility] in [place]. Patient presents with anxiety- based racing thoughts that appear to keep him up at night and prevent him from sleeping. Pt reports he lost his best friend, a cat named "davida clark" in July 2017. Pt spoke at length about his family- children and grandchildren. Diagnoses: F32.9 Unspecified Depressive Disorder F41.1 Generalized Anxiety Disorder F10.10 Alochol Use Disorder Z60.2 Problem related to Living Alone Hypertension hyperlipidemia Asthma COPD; Atrial fibrillation; Dyslipidemia Treatment Plan: Increase Celexa (citalopram) to 40 mg daily May be discharged home if all aftercare plans are in place Discharge HBIPS - Tobacco Use Treatment Offered Post DC Medications Offered: Not Applicable Post DC Tobacco Treatment Plan: Not Applicable - EtOH/Drug Use D/O Treatment Offered Post DC Medications Offered: Script Given-See Med List Post DC EtOH/SubAbuse TX Plan: Wilfredo SubAbuse/Dual IOP Metabolic Screening - Screen if on a Neuroleptic Medication - Metabolic screening should include: - Blood Pressure, BMI, Glucose or Hgb A1c, & a - Lipid profile from within the past 365 days. Metabolic Screening Not Applicable, patient not on a neuroleptic. Discharge Instructions General Discharge Information Multiple Neuroleptics: Not Applicable Discharge Diet Other (avoid concentrated sweets) Discharge Activity As Tolerated DC Disposition: Home Prescriptions Stop taking the following medications: Citalopram Hydrobromide (Citalopram HBr) 20 MG TABLET ORAL DAILY Qty = 21 Continue taking these medications: Dabigatran Etexilate Mesylate (Pradaxa 150 MG) 150 MG CAPSULE 1 Capsule ORAL TWICE DAILY Comments: Last Taken:09/13/17 Time:0900 Budesonide/Formoterol Fumarate (Symbicort 80-4.5 Mcg Inhaler) 10.2 GM HFA.AER.AD 2 Puff Inhale through mouth TWICE DAILY Comments: Last Taken:09/13/17 Time:0900 Furosemide (Lasix) 20 MG TABLET 1 Tablet ORAL Every Morning Comments: Last Taken:09/13/17 Time:0900 Metoprolol Tartrate (Lopressor) 50 MG TABLET 1.5 Tablet ORAL TWICE DAILY Comments: Last Taken:09/13/17 Time:0900 Atorvastatin Calcium (Lipitor) 80 MG TABLET 0.5 Tablet ORAL Every night Comments: Last Taken:09/12/17 Time:1600 Docusate Sodium (Docusate Sodium) 100 MG CAPSULE 1 Capsule ORAL TWICE DAILY as needed for STOOL SOFTENER Comments: Last Taken:09/13/17 Time:0900 Albuterol Sulfate (Proair Hfa) 8.5 GM HFA.AER.AD 1 Puff Inhale through mouth Q6H as needed for SOB Comments: Last Taken:NOT USED IN THE HOSPITAL Time: Acetaminophen (Tylenol) 325 MG TABLET 2 Tablet ORAL Q6H as needed for PAIN Comments: Last Taken:NOT GIVEN IN THE HOSPITAL Time: Sildenafil Citrate (Viagra) 50 MG TABLET 1 Tablet ORAL As Directed as needed for ED Instructions: 1 hour before sexual activity Comments: Last Taken:NOT GIVEN IN THE HOSPITAL Time: Thiamine HCl (B-1) 100 MG TABLET 2 Tablet ORAL DAILY Comments: Last Taken:09/13/17 Time:0900 Cyanocobalamin (Vitamin B-12) 1,000 MCG TABLET 1 Tablet ORAL DAILY Comments: Last Taken:09/13/17 Time:0900 Multivitamin (One Daily Multivitamin) 1 EACH TABLET 1 Tablet ORAL DAILY Qty = 14 Comments: Last Taken:09/13/17 Time:0900 Naltrexone HCl (Naltrexone HCl) 50 MG TABLET 1 Tablet ORAL DAILY Mirtazapine (Mirtazapine) 7.5 MG TABLET 7.5 Milligram ORAL AT BEDTIME Qty = 14 This prescription has been renewed Start taking the following new medications: Citalopram Hydrobromide (Citalopram HBr) 40 MG TABLET 1 Tablet ORAL DAILY Qty = 14 No Refills Studies Pending at Discharge None Copies To: Nichole
[2017-11-14] MEDS ORDERED: CITALOPRAM HBR40 MG PO (13:56)
[2017-11-14] MEDS ORDERED: MIRTAZAPINE7.5 M1 PO (13:58)
--- NOTE | 2017-11-14 16:01 | SOCIAL WORKER PROG NOTE PSYCH ---
Social Work Progress Note Progress Note This board writer left discharge clinical via for Sabrina at [phone], ext. [phone].
--- NOTE | 2017-11-14 17:08 | SOCIAL WORKER PROG NOTE PSYCH ---
See Addendum Social Work Progress Note Progress Note This handbook writer spoke with Shannon Whyte ([phone]) at the [facility] who stated that she would explore transportation options for the patient to/from the [facility] and will contact this handbook writer with the information. This handbook writer spoke with Best Sanchez at the [facility] in their psychiatric ER ([phone]) . He stated that he spoke with the [facility]'s operations research manager and the patient will be provided with daily transportation to and from the [facility] for their day program ( Mon-Monday) for 21 days. Patient will be contacted by the [facility] to inform of his start date with that program as well as transportation. This handbook writer confirmed the patient's home number, which this handbook writer also confirmed with Best. Best also confirmed the patient's appointment with Dr. Jovel for 11/16/17 at 9: 30am. 1:54pm This handbook writer met with patient. He described his mood as "good" and felt ready to discharge home today. He denied SI/HI/AH/VH. Patient identified a safety plan: "Call CJ [patient's son]." He was also informed that he would be provided with crisis numbers and warm line numbers upon discharge. Patient added, "I got a crisis card in my wallet [from the [facility]]" which he agreed to utilize. Patient stated that he was not interested in having a family meeting before discharge, as his son did not return the call. Patient stated that he does not have a visiting nurse. He stated that he did not need this handbook writer to schedule a visiting nurse for him as he is working with the [facility] to obtain one/connect with visiting nurse services. Patient was informed that this handbook writer spoke with Shannon Ortega and Best Sanchez at the [facility] today regarding outpatient treatment (see above). Patient was agreeable to the discharge plans. Patient was also reminded about the previous conversation about the [facility] in his town and that he can obtain a monthly schedule by visiting. Patient expressed gratitude for the treatment that he received at and looks forward to attending the day program at the [facility].
== END 2017-11-14 15:16 | DRG 881 ==
LOC: ERH 19:13 → ERHI 11-08 13:13 → CP SOUTH 11-08 13:13 → ENTRNSPT 11-08 18:25 → EDTRNSPT 11-08 18:46 → EDTRNSPTSTS 11-08 18:46 → CP SOUTH 11-08 19:02 → CMPTRNSPT 11-08 19:03 → CP SOUTH 11-08 23:39
PROVIDERS: Emergency Medicine
DX: F32.9 Major depressive disorder, single episode, unspecified (principal); F10.10 Alcohol abuse, uncomplicated; F41.1 Generalized anxiety disorder
CPT/HCPCS: 80307; G0480; J3490

== ENCOUNTER 2017-11-27 20:00 | Emergency (ER) | payer OTHER ==
[~2017-11-27 20:00] MED LIST changes: +CITALOPRAM HBR40 MG PO
--- NOTE | 2017-11-27 20:08 | ED PSYCHIATRIC COMPLAINT ---
See Addendum History of Present Illness General Chief Complaint: Nausea, Vomiting, Diarrhea Stated Complaint: BIBA FOR +N/V Source: patient, old records, EMS Exam Limitations: no limitations Vital Signs & Intake/Output Vital Signs & Intake/Output Vital Signs Date Time Temp Pulse Resp B/P B/P Pulse O2 O2 Flow FiO2 Mean Ox Delivery Rate 11/28 1505 97.0 54 18 133/67 96 Room Air 11/28 1049 97.1 61 18 110/61 96 Room Air 11/28 0821 97.7 70 18 139/85 98 Room Air 11/28 0656 95.7 55 18 147/70 95 Room Air 11/28 0243 96.7 80 18 118/78 98 Room Air 11/27 2314 58 16 108/71 96 Room Air ED Intake and Output 11/28 0000 11/27 1200 Intake Total 0 Output Total Balance 0 Intake, Oral 0 Allergies Coded Allergies: aspirin (RELATED TO BEING ON WARFARIN 07/23/16) Reconcile Medications Acetaminophen (Tylenol) 325 MG TABLET 2 TAB PO Q6H PRN PAIN (Reported) Albuterol Sulfate (Proair Hfa) 8.5 GM HFA.AER.AD 1 PUF INH Q6H PRN SOB ( Reported) Atorvastatin Calcium (Lipitor) 80 MG TABLET 0.5 TAB PO QPM CHOLESTEROL ( Reported) Budesonide/Formoterol Fumarate (Symbicort 80-4.5 Mcg Inhaler) 10.2 GM HFA.AER.AD 2 PUF INH BID COPD (Reported) Citalopram Hydrobromide (Citalopram HBr) 40 MG TABLET 1 TAB PO DAILY Anxiety and depression Cyanocobalamin (Vitamin B-12) 1,000 MCG TABLET 1 TAB PO DAILY SUPPLEMENT ( Reported) Dabigatran Etexilate Mesylate (Pradaxa 150 MG) 150 MG CAPSULE 1 CAP PO BID BLOOD THINNER (Reported) Docusate Sodium 100 MG CAPSULE 1 CAP PO BID PRN STOOL SOFTENER (Reported) Furosemide (Lasix) 20 MG TABLET 1 TAB PO QAM DIURETIC (Reported) Metoprolol Tartrate (Lopressor) 50 MG TABLET 1.5 TAB PO BID BP (Reported) Mirtazapine 7.5 MG TABLET 7.5 MG PO AT BEDTIME depression/sleep Multivitamin (One Daily Multivitamin) 1 EACH TABLET 1 TAB PO DAILY vitamin supplement Naltrexone HCl 50 MG TABLET 1 TAB PO DAILY ETOH (Reported) Sildenafil Citrate (Viagra) 50 MG TABLET 1 TAB PO AD PRN ED (Reported) 1 hour before sexual activity Thiamine HCl (B-1) 100 MG TABLET 2 TAB PO DAILY SUPPLEMENT (Reported) Triage Note: PT BIBA FROM HOME. PER EMS REPORT PT "FELT LIKE HE WAS GOING TO ". PT CALLED "THE HOTLINE" AND THAT DID NOT MAKE HIM FELL BETTER. HE THEN "AT A BANANA SPLIT WHICH DID NOT MAKE HIM FELL BETTER SO HE CALLED THE AMBULANCE. PT ARRIVES CALM AND COOPERATIVE. A&OX3. SPEAKS IN FULL COMPLETE SENTENCES. RESPIRAITONS EVEN AND NON LABORED. SKIN IS WARM AND DRY. Triage Nurses Notes Reviewed? yes HPI: Patient was brought into the emergency department by ambulance for evaluation of just feeling like he is contacted I and nausea and diarrhea. Patient states he has been nauseous and 2 episodes of diarrhea today. Patient denies any chest pain shortness of breath. Patient states she was doing very well after his discharge from [facility] that his psychiatrist at the [place] decreased his antidepressant by half. This occurred approximately one month ago. Patient states since then he has been feeling more depressed and at times feeling his current diet. Patient states he called the crisis hotline at the [place] but that did not help him feel better at all. Upon arrival to the emergency department patient is disheveled. Patient is usually very well kept on a come to the emergency department. This evening his hair is a mass in his clothes are dirty. These are both unusual for the patient. Patient denies any hallucinations. Patient denies any active suicidal or homicidal ideations. (Robb SHERWOOD,Johan Davis) Past History Travel History Traveled to [place] past 21 day No Medical History Any Pertinent Medical History? 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 FATHER (cad, [place]). Hx Contributory? No (Robb SHERWOOD,Johan Davis) Review of Systems Review of Systems Constitutional: Reports: no symptoms. EENTM: Reports: no symptoms. Respiratory: Reports: no symptoms. Cardiovascular: Reports: no symptoms. GI: Reports: no symptoms. Genitourinary: Reports: no symptoms. Musculoskeletal: Reports: no symptoms. Skin: Reports: no symptoms. Neurological/Psychological: Reports: see HPI. Hematologic/Endocrine: Reports: no symptoms. Immunologic/Allergic: Reports: no symptoms. All Other Systems: Reviewed and Negative (Robb SHERWOOD,Johan Davis) Physical Exam Physical Exam General Appearance: well developed/nourished, mild distress Head: atraumatic, normal appearance Eyes: Bilateral: PERRL, EOMI. Ears, Nose, Throat: normal pharynx, normal ENT inspection, hearing grossly normal Neck: normal inspection, supple Respiratory: normal breath sounds, chest non-tender, no respiratory distress, lungs clear Cardiovascular: regular rate/rhythm, normal peripheral pulses Gastrointestinal: normal bowel sounds, soft, non-tender Extremities: normal range of motion Neurological/Psychiatric: no motor/sensory deficits, awake, alert Appearance/Memory/Insight: appropriate appearance, appropriate insight Behavoir/Eye Contact/Speech: cooperative, normal speech, good eye contact Thoughts/Hallucinations: normal thought pattern, no apparent hallucination Skin: intact, normal color, warm/dry SAD PERSONS Done? TERRY SCONSULT OBTAINED (Robb SHERWOOD,Johan Davis) Progress Differential Diagnosis: drug intoxication, drug overdose, drug withdrawal, electrolyte abnormality Plan of Care: Current Medications Sig/Shanelle Start time Last Medication Dose Stop Time Status Admin Citalopram 20 MG DAILY 11/28 1000 CAN Hydrobromide (Celexa) Laboratory Tests 11/27/17 2200: Urine Opiates Screen < 100, Methadone Screen 74, Barbiturate Screen < 60, Ur Phencyclidine Scrn < 6.00, Amphetamines Screen < 100, U Benzodiazepines Scrn < 85, Urine Cocaine Screen < 50, Urine Cannabis Screen < 5.00 11/27/17 2040: Anion Gap 10, Estimated GFR 54 L, BUN/Creatinine Ratio 13.1, Glucose 160 H, Calcium 9.1, Total Bilirubin 1.2, AST 25, ALT 34, Alkaline Phosphatase 87, Troponin I < 0.01, Total Protein 6.9, Albumin 3.8, Globulin 3.1, Albumin/ Globulin Ratio 1.2, CBC w Diff NO MAN DIFF REQ, RBC 4.48 L, MCV 102.3 H, MCH 33.3 H, MCHC 32.6 L, RDW 12.7, MPV 7.9, Gran % 68.5, Lymphocytes % 20.5, Monocytes % 8.1, Eosinophils % 2.6, Basophils % 0.3, Absolute Granulocytes 4.2, Absolute Lymphocytes 1.3, Absolute Monocytes 0.5, Absolute Eosinophils 0.2, Absolute Basophils 0, Serum Alcohol < 10.0 11/28/2017 7:16:56 AM Patient signed out to me by Dr. Zamudio. Pending crisis evaluation and disposition. (Lea SHERWOOD,Cora) Initial ED EKG: NSR, nonspecific ST T wave chg Prior EKG: unchanged Hand-Off Endorsed To: Cora Tate MD Endorsed Time: 0700 Pending: consult (Johan Zamudio MD) Hand-Off Endorsed To: Ted Lee DO Endorsed Time: 1500 Pending: consult (CRISIS) (Cora Tate MD) Departure Departure Disposition: STILL A PATIENT Condition: Stable Clinical Impression Primary Impression: Anxiety Referrals: Carmina Euceda MD (PCP/Family) Departure Forms: Customer Survey General Discharge Information (Johan Zamudio MD) Departure Comments 11/28/17 The patient was discharged by Cora Tate MD. (Ted Lee DO) Albuterol Sulfate 2 PUF Q6 11/28 0841 UNVr 11/28 (Ventolin) 1213 Laboratory Tests 11/27/17 2200: Urine Opiates Screen < 100, Methadone Screen 74, Barbiturate Screen < 60, Ur Phencyclidine Scrn < 6.00, Amphetamines Screen < 100, U Benzodiazepines Scrn < 85, Urine Cocaine Screen < 50, Urine Cannabis Screen < 5.00 11/27/17 2040: Anion Gap 10, Estimated GFR 54 L, BUN/Creatinine Ratio 13.1, Glucose 160 H, Calcium 9.1, Total Bilirubin 1.2, AST 25, ALT 34, Alkaline Phosphatase 87, Troponin I < 0.01, Total Protein 6.9, Albumin 3.8, Globulin 3.1, Albumin/ Globulin Ratio 1.2, CBC w Diff NO MAN DIFF REQ, RBC 4.48 L, MCV 102.3 H, MCH 33.3 H, MCHC 32.6 L, RDW 12.7, MPV 7.9, Gran % 68.5, Lymphocytes % 20.5, Monocytes % 8.1, Eosinophils % 2.6, Basophils % 0.3, Absolute Granulocytes 4.2, Absolute Lymphocytes 1.3, Absolute Monocytes 0.5, Absolute Eosinophils 0.2, Absolute Basophils 0, Serum Alcohol < 10.0 11/28/2017 7:16:56 AM Patient signed out to me by Dr. Zamudio. Pending crisis evaluation and disposition. (Cora Tate MD) Initial ED EKG: NSR, nonspecific ST T wave chg Prior EKG: unchanged Hand-Off Endorsed To: Cora Tate MD Endorsed Time: 0700 Pending: consult (Johan Zamudio MD) Hand-Off Endorsed To: Ted Lee DO Endorsed Time: 1500 Pending: consult (CRISIS) (Cora Tate MD) Departure Departure Disposition: STILL A PATIENT Condition: Stable Clinical Impression Primary Impression: Anxiety Referrals: Carmina Euceda MD (PCP/Family) Departure Forms: Customer Survey General Discharge Information (Robb SHERWOOD,Johan Davis)
[2017-11-27 20:58] LABS: ABSOLUTE BASOPHIL COUNT 0 /CUMM (0.0-0.2); ABSOLUTE EOSINOPHIL COUNT 0.2 /CUMM (0.0-0.7); ABSOLUTE GRANULOCYTE CT 4.2 /CUMM (1.4-6.5); ABSOLUTE LYMPH COUNT 1.3 /CUMM (1.2-3.4); ABSOLUTE MONOCYTE COUNT 0.5 /CUMM (0.10-0.60); BASOPHIL % 0.3 % (0.0-2.0); EOSINOPHIL % 2.6 % (0-5); GRANULOCYTE % 68.5 % (42.2-75.2); HEMATOCRIT 45.8 % (42-52); MEAN CORPUSCULAR HGB 33.3 PG (27.0-31.0); MEAN CORPUSCULAR HGB CONC 32.6 G/DL (33.0-37.0); MEAN CORPUSCULAR VOLUME 102.3 FL (80.0-94.0); MEAN PLATELET VOLUME 7.9 FL (7.4-10.4); PLATELET COUNT 184 /CUMM (130-400); RBC DISTRIBUTION WIDTH 12.7 % (11.5-14.5); RED BLOOD CELL CT 4.48 /CUMM (4.70-6.10); WHITE BLOOD CELL COUNT 6.2 /CUMM (4.8-10.8)
--- NOTE | 2017-11-28 08:31 | ED PSYCH CRISIS CONSULTATION ---
Crisis Consult Basic Assessment Date of Consult: 11/28/17 Responsible Person/Accompanied By: self Insurance Authorization: Insurance #1: Insurance name: [employer] Phone number: Policy number: [id number] Group number: [id number] Authorization number: ED Provider: Patient's ED Provider: Cora Tate MD Primary Care Physician: Patient's PCP: Carmina Euceda MD PCP's Current Psychiatrist: Dr Jovel [phone] Chief Complaint: Nausea, Vomiting, Diarrhea Patient's Quote: I was having thoughts about dying Present Illness: Pt is a 77 yo male presenting to [place] ED last evening with reports of depression and thoughts of dying. Pt has had multiple ED visits past few months for similiar presentation. Pt reports he had been feeling "real good" but became disturbed but his upstairs neighbor making a lot of noise. Pt reported eating ice cream to try to calm down but then had nausea and diahrea and started having thoughts of dying so came to ED. Pt reports he is in treatment with Dr Macy Jovel at the [facility] and is also connected to groups there but is having difficulty attending due to transportation issues. He reports his Celexa was recently decreased to 20mg. Pt denies SI/HI. Pt denying depression but complains about anxiety. Pt is a 24 yr [place] active from [id number]. Pt had no previous mental health treatment hx until the Fall of 2015 after his son Syed moved to [place]. Pt reports having 5 children but is closest with Syed and feels lonely and disconnected. Pt reports having friends who help him get to appointments and also attending [employer] a couple of times of week. Pt reports ordering ilan randal or coke with no recent beer. He reports last beer was on Nov 03. He denies other substance use. Pt is aware of [facility] but doesn't attend. Pt has prior inpatient admissions-March 2017 at [facility] and August 2017 [facility]. Pt discharged from [facility] to [facility] but didn't continue after intake. Pt has since begun tx at [facility]. Pt presents as calm, cooperative, amiable and OX3. Pt denies SI/HI and is future oriented discussing future plans to move to [facility]. C-SSRS completed. Pt reports no hx of SI or attempts. Pt reporting occasional sadness and anxiety but is generally positve with linear thinking. Case reviewed with Dr Plascencia with recommendation for pt to continue treatment at [facility]. Crisis able to schedule [facility] to [facility] supervisor pt Th at 7am to attend [facility] abuse group. Next appointment with Dr Jovel scheduled for December 07. Pt in agreement to discharge from ED and [facility]. Pt instructed to return to ED if symptoms return. Patient's Address: [address] [place] [address] [place] [address] Other Phone Number: Who Do You Live With? Patient/Self Family/Informants Interviewed: collateral provided by [facility] - see collateral note Allergies - Coded Allergies: aspirin (RELATED TO BEING ON WARFARIN 07/23/16) Current Medications - Scheduled Medications Atorvastatin Calcium (Lipitor) 80 MG TABLET 0.5 TAB PO QPM CHOLESTEROL ( Reported) Entered as Reported by Sherry Maurice on 01/16/16 1546 Budesonide/Formoterol Fumarate (Symbicort 80-4.5 Mcg Inhaler) 10.2 GM HFA.AER.AD 2 PUF INH BID COPD (Reported) Entered as Reported by Sherry Maurice on 01/16/16 1544 Citalopram Hydrobromide (Citalopram HBr) 40 MG TABLET 1 TAB PO DAILY Anxiety and depression #14 TAB Prescribed by Kaykay SHERWOOD,Camilo on 11/14/17 Cyanocobalamin (Vitamin B-12) 1,000 MCG TABLET 1 TAB PO DAILY SUPPLEMENT ( Reported) Entered as Reported by Sherry Maurice on 06/18/17 1555 Dabigatran Etexilate Mesylate (Pradaxa 150 MG) 150 MG CAPSULE 1 CAP PO BID BLOOD THINNER (Reported) Entered as Reported by Sherry Maurice on 01/16/16 1543 Furosemide (Lasix) 20 MG TABLET 1 TAB PO QAM DIURETIC (Reported) Entered as Reported by Sherry Maurice on 01/16/16 1544 Metoprolol Tartrate (Lopressor) 50 MG TABLET 1.5 TAB PO BID BP (Reported) Entered as Reported by Sherry Maurice on 01/16/16 1545 Mirtazapine 7.5 MG TABLET 7.5 MG PO AT BEDTIME depression/sleep #14 TAB Prescribed by Camilo Mccracken MD on 11/14/17 Multivitamin (One Daily Multivitamin) 1 EACH TABLET 1 TAB PO DAILY vitamin supplement #14 TAB Prescribed by Adrian Bourne MD on 09/13/17 Naltrexone HCl 50 MG TABLET 1 TAB PO DAILY ETOH (Reported) Entered as Reported by Siri Walker on 10/28/17 0535 Thiamine HCl (B-1) 100 MG TABLET 2 TAB PO DAILY SUPPLEMENT (Reported) Entered as Reported by Sherry Maurice on 06/18/17 1552 Scheduled PRN Medications Acetaminophen (Tylenol) 325 MG TABLET 2 TAB PO Q6H PRN PAIN (Reported) Entered as Reported by Danita Rodriguez on 05/13/16 0659 Albuterol Sulfate (Proair Hfa) 8.5 GM HFA.AER.AD 1 PUF INH Q6H PRN SOB ( Reported) Entered as Reported by Sherry Maurice on 01/16/16 1548 Docusate Sodium 100 MG CAPSULE 1 CAP PO BID PRN STOOL SOFTENER (Reported) Entered as Reported by Sherry Maurice on 01/16/16 1547 Sildenafil Citrate (Viagra) 50 MG TABLET 1 TAB PO AD PRN ED (Reported) Entered as Reported by Sherry Maurice on 06/18/17 1550 Durable Medical Equipment [NEBULIZER] #1 ASTHMA #1 Prescribed by Ted Limon MD on 01/16/16 Laboratory Results: Laboratory Tests 11/27/17 2200: Urine Opiates Screen < 100, Methadone Screen 74, Barbiturate Screen < 60, Ur Phencyclidine Scrn < 6.00, Amphetamines Screen < 100, U Benzodiazepines Scrn < 85, Urine Cocaine Screen < 50, Urine Cannabis Screen < 5.00 11/27/17 2040: Anion Gap 10, Estimated GFR 54 L, BUN/Creatinine Ratio 13.1, Glucose 160 H, Calcium 9.1, Total Bilirubin 1.2, AST 25, ALT 34, Alkaline Phosphatase 87, Troponin I < 0.01, Total Protein 6.9, Albumin 3.8, Globulin 3.1, Albumin/ Globulin Ratio 1.2, CBC w Diff NO MAN DIFF REQ, RBC 4.48 L, MCV 102.3 H, MCH 33.3 H, MCHC 32.6 L, RDW 12.7, MPV 7.9, Gran % 68.5, Lymphocytes % 20.5, Monocytes % 8.1, Eosinophils % 2.6, Basophils % 0.3, Absolute Granulocytes 4.2, Absolute Lymphocytes 1.3, Absolute Monocytes 0.5, Absolute Eosinophils 0.2, Absolute Basophils 0, Serum Alcohol < 10.0 Past History Past Medical History Neurological: NONE EENT: NONE Cardiovascular: AFIB, hypertension, hyperlipidemia Respiratory: asthma Gastrointestinal: NONE Hepatic: NONE Renal: NONE Musculoskeletal: NONE Psychiatric: depression Endocrine: NONE Blood Disorders: NONE 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 Past Surgical History Surgical History: non-contributory Psychosocial History Strengths/Capabilities: Able to articulate needs, motivated for treatment Physical Limitations (Interventions): unknown Psychiatric Treatment History Psych Treatment Psychiatric Treatment Yes Inpatient Treatment Yes Outpatient Treatment Yes [facility] of [facility] Reason for Treatment depression etoh Dates of Treatment [facility] 2017; [facility] Response to Treatment sporadic treatment compliance Diagnosis by History: Depression/ anxiety Substance Use/Abuse History Drug Use/Abuse Substances Used/Abused Yes Substance Used/Abused Alcohol Last Used nov 03 How much used/taken 1-2 beers 2x/wk Substance Abuse Treatment Substance Abuse Treatment Past Substance Abuse [place] No Inpatient Treatment No Outpatient Treatment No Comments: pt reports decreasing etoh use with last use Nov 03 Current Mental Status Mental Status Orientation: Person, Place, Situation Affect: Flat Speech: WNL Neuro-vegetative: Sleep Disturbance Appearance Appearance- Dress/Hygiene: pt in hospital scrubs; good eye contact; slowed motor skills Behaviors Thought Process: WNL Thought Content: WNL Memory: WNL Insight: Fair SI/HI Risk Assessment Past Suicidal Ideation/Attempts No Current Suicidal Ideation/Att No Past Homicidal Ideation/Att: No Current Homicidal Ideation/Attempts No Degree of Intent: None Gravely Disabled: Poor Impulse Control Risk Factors: age (under 24/over 65), high anxiety/distress, SA/MH hospitalized, poor impulse control, lives alone, male, limited support Lethality Ratin PTSD Checklist PTSD Done? patient declined ED Management Sitter: Yes Restraints: No DSM5/PS Stressors/Medical Prob Diagnosis' (DSM 5, Stressors, Medical): Unspecified depression F32.9 alcohol use F10.20 limited family contact Current GAF: 35 Comments: Pt has struggled with daily functioning and stability since son Syed moved to [place] fall 2015. Departure Disposition Psych Medical Clearance Date: 11/28/17 Medically Cleared at: 0700 Time Started: 0700 Time Ended: 0745 Date Disposition Established: 11/28/17 Time Disposition Established: 1500 Plan for Disposition - Modality: Outpatient Facility: [facility] Follow-up Appt Date: 11/30/17 Follow-Up Appt Time: 0900 Contact: Jae- [facility] Rationale for Disposition: Pt will resume tx at [facility]. [facility] transportation scheduled for quarter supervisor [place] 7am. Next appt with Dr Jovel December 07 Additional Instructions: refuge manager Arlette Caban is working to connect pt with [facility] program and T and Th TEAM. Referrals Carmina Euceda MD (PCP/Family)
[2017-11-28 15:05] VITALS: BP 133/67
--- NOTE | 2017-11-28 15:08 | ED PSY CRISIS COLLATERAL NOTE ---
Collateral Note Collateral Note Family/Inform/Lea Contacts: Crisis spoke with Jae at [facility] ([facility]) at the [place] as Dr. Chinchilla referred him to that program before he can do the [facility]. In order to start the program, pt only needs to "show up" and check in with Jae at the front end developer [employer]. He explained that the program is 15 full treatment days. Monday through there are groups at 9:00 a.m., 10:00 a.m., (break from lunch at 11 a.m.) and then another group at 1pm. On Fridays, it's a half day and program is over at noon. Jae can be reached at [phone]. The Director of the SADP is Dr. Johan Fang [phone].
== END 2017-11-28 15:38 ==
LOC: ERH 20:00
PROVIDERS: Emergency Medicine
DX: F41.9 Anxiety disorder, unspecified (principal)
CPT/HCPCS: 80307; 93005; 93010; 96361; 96374; G0463; G0480; J2405; J3490; J7040

== ENCOUNTER 2017-12-23 10:12 | Emergency (ER) | payer OTHER ==
[~2017-12-23] VITALS: Ht 190.5 cm; Wt 108.9 kg
--- NOTE | 2017-12-23 11:48 | ED GENERAL ADULT ---
History of Present Illness General Chief Complaint: Nausea, Vomiting, Diarrhea Stated Complaint: BIBA FOR NVD/WEAKNESS Source: patient Exam Limitations: no limitations Allergies Coded Allergies: aspirin (RELATED TO BEING ON WARFARIN 07/23/16) Triage Note: PT BIBA C/O "I DONT FEEL GOOD, I ALMOST PASSED OUT" "DILLON BEEN TO THE BATHROOM 2-3 TIMES WITH LOOSE STOOL. DENIES CP DENIES DIFF BREATHING Triage Nurses Notes Reviewed? yes Onset: Abrupt Duration: day(s): (1), better, changing over time, gone now Timing: single episode today Injury Environment: home Severity: mild, moderate No Modifying Factors: none HPI: 77-year-old male past medical history of atrial fibrillation, hypertension, hyperlipidemia, depression presents for evaluation of an episode of dizziness lightheadedness loose stool and nausea. Patient states that he woke up today feeling well in his usual state of health. He states that he was leaving his house when he suddenly felt the urge to go the bathroom. He went back inside and had 2 or 3 episodes of loose stool. No blood no diarrhea. He states that after this he felt dizzy lightheaded like he may pass out no chest pain shortness of breath or abdominal pain. No recent surgery recent trauma recent antibiotics. No vomiting but feels nauseous. He states he did not eat anything today due to nausea. Currently he states he feels well has no pain no dizziness lightheadedness chest pain shortness of breath nausea. Patient does report HE is currently taking stool softeners. (David Suarez) Vital Signs & Intake/Output Vital Signs & Intake/Output Vital Signs Date Time Temp Pulse Resp B/P B/P Pulse O2 O2 Flow FiO2 Mean Ox Delivery Rate 12/23 1306 97.4 60 18 122/72 97 Room Air 12/23 1045 96.1 55 16 131/79 97 Room Air Reconcile Medications Acetaminophen (Tylenol) 325 MG TABLET 2 TAB PO Q6H PRN PAIN (Reported) Albuterol Sulfate (Proair Hfa) 8.5 GM HFA.AER.AD 1 PUF INH Q6H PRN SOB ( Reported) Atorvastatin Calcium (Lipitor) 80 MG TABLET 0.5 TAB PO QPM CHOLESTEROL ( Reported) Budesonide/Formoterol Fumarate (Symbicort 80-4.5 Mcg Inhaler) 10.2 GM HFA.AER.AD 2 PUF INH BID COPD (Reported) Citalopram Hydrobromide (Citalopram HBr) 40 MG TABLET 1 TAB PO DAILY Anxiety and depression Cyanocobalamin (Vitamin B-12) 1,000 MCG TABLET 1 TAB PO DAILY SUPPLEMENT ( Reported) Dabigatran Etexilate Mesylate (Pradaxa 150 MG) 150 MG CAPSULE 1 CAP PO BID BLOOD THINNER (Reported) Docusate Sodium 100 MG CAPSULE 1 CAP PO BID PRN STOOL SOFTENER (Reported) Furosemide (Lasix) 20 MG TABLET 1 TAB PO QAM DIURETIC (Reported) Metoprolol Tartrate (Lopressor) 50 MG TABLET 1.5 TAB PO BID BP (Reported) Mirtazapine 7.5 MG TABLET 7.5 MG PO AT BEDTIME depression/sleep Multivitamin (One Daily Multivitamin) 1 EACH TABLET 1 TAB PO DAILY vitamin supplement Naltrexone HCl 50 MG TABLET 1 TAB PO DAILY ETOH (Reported) Ondansetron (Zofran Odt) 4 MG TAB.RAPDIS 1 TAB SL TID PRN NAUSEA Sildenafil Citrate (Viagra) 50 MG TABLET 1 TAB PO AD PRN ED (Reported) 1 hour before sexual activity Thiamine HCl (B-1) 100 MG TABLET 2 TAB PO DAILY SUPPLEMENT (Reported) (Ashly SHERWOOD,Ted Ruiz) Past History Travel History Traveled to [place] past 21 day No Medical History Any Pertinent Medical History? 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 FATHER (cad, [place]). Hx Contributory? No (David Suarez) Review of Systems Review of Systems Constitutional: Reports: no symptoms. EENTM: Reports: no symptoms. Respiratory: Reports: no symptoms. Cardiovascular: Reports: no symptoms. GI: Reports: see HPI, nausea, changes in stool. Genitourinary: Reports: no symptoms. Musculoskeletal: Reports: no symptoms. Skin: Reports: no symptoms. Neurological/Psychological: Reports: see HPI (DIZZY). Hematologic/Endocrine: Reports: no symptoms. Immunologic/Allergic: Reports: no symptoms. All Other Systems: Reviewed and Negative (David Suarez) Physical Exam Physical Exam General Appearance: well developed/nourished, no apparent distress, alert, awake Head: atraumatic, normal appearance Eyes: Bilateral: normal appearance, PERRL, EOMI. Ears, Nose, Throat: normal pharynx, normal ENT inspection, hearing grossly normal Neck: normal inspection, supple, full range of motion Respiratory: normal breath sounds, chest non-tender, no respiratory distress, lungs clear Cardiovascular: regular rate/rhythm, normal peripheral pulses Peripheral Pulses: 2+ radial (R), 2+ radial (L) Gastrointestinal: normal bowel sounds, soft, non-tender, no organomegaly Back: normal inspection, normal range of motion Extremities: normal inspection, normal range of motion, no edema Neurologic/Psych: no motor/sensory deficits, awake, alert, oriented x 3, normal gait, normal mood/affect Skin: intact, normal color, warm/dry Lymphatic: no anterior cervical rosmery Core Measures ACS in differential dx? No CVA/TIA Diagnosis: No Sepsis Present: No Sepsis Focused Exam Completed? No (David Suarez) Progress Differential Diagnoses I considered the following diagnoses in my evaluation of the patient: [ Gastroenteritis, colitis, diverticulitis, medication side effect] Initial ED EKG: AFIB (RATE 49) (David Suarez) Plan of Care: Orders Procedure Date/time Status EKG 12/23 1129 Active URINALYSIS 12/23 1121 Complete TROPONIN LEVEL 12/23 1121 Complete COMPREHENSIVE METABOLIC PANEL 12/23 1121 Complete CBC WITHOUT DIFFERENTIAL 12/23 1121 Complete Laboratory Tests 12/23/17 1131: Anion Gap 8, Estimated GFR > 60, BUN/Creatinine Ratio 11.8, Glucose 140 H, Calcium 8.8, Total Bilirubin 1.1, AST 26, ALT 24, Alkaline Phosphatase 82, Troponin I < 0.01, Total Protein 7.0, Albumin 3.8, Globulin 3.2, Albumin/ Globulin Ratio 1.2, CBC w Diff NO MAN DIFF REQ, RBC 4.23 L, MCV 101.5 H, MCH 33.8 H, MCHC 33.3, RDW 12.4, MPV 7.9, Gran % 69.5, Lymphocytes % 17.0 L, Monocytes % 8.3, Eosinophils % 4.7, Basophils % 0.5, Absolute Granulocytes 4.0, Absolute Lymphocytes 1.0 L, Absolute Monocytes 0.5, Absolute Eosinophils 0.3, Absolute Basophils 0, Urine Color YEL, Urine Clarity CLEAR, Urine pH 6.0, Ur Specific [place] 1.020, Urine Protein NEG, Urine Ketones NEG, Urine Nitrite NEG, Urine Bilirubin NEG, Urine Urobilinogen 0.2, Ur Leukocyte Esterase NEG, Ur Microscopic EXAM NOT REQUIRED, Urine Hemoglobin NEG, Urine Glucose NEG Patient seen and evaluated. He is reporting episodes of nausea and dizziness lightheadedness. Currently he still reporting mild nausea his abdomen is soft and nontender. No chest pain no shortness of breath no syncopal episode. EKG shows A. fib RATE controlled. We'll check basic labs patient medicated with Zofran. Blood work is within normal limits EKG shows a chill fibrillation that is rate controlled and not changed from previous. Patient states he feels much better after Zofran. He was able to eat a sandwich and drink a can of ilan randal without any difficulty. He is completely asymptomatic feels fine. Reviewed all results of today's visit with patient. Advised him to rest AND DRNIK plenty of fluids continue Zofran as needed for nausea. Make a follow-up with a primary care doctor discussed return precautions patient agrees the plan. Case discussed with Dr. Limon he agrees. (David Suarez) (Ashly SHERWOOD,Ted Ruiz) Departure Departure Disposition: HOME OR SELF CARE Condition: Stable Clinical Impression Primary Impression: Nausea Referrals: Carmina Euceda MD (PCP/Family) Additional Instructions: Rest and drink plenty of fluids. Continue Zofran as needed for nausea. Hold STOOL SOFTNERS until your symptoms resolve. Make a follow-up appointment with her primary care doctor to review all results of today's visit monitor symptoms return with any concerns. Departure Forms: Customer Survey General Discharge Information Prescriptions: Current Visit Scripts Ondansetron (Zofran Odt) 1 TAB SL TID PRN NAUSEA #10 TAB (David Suarez) PA/REPORTING CONSULTANT Co-Sign Statement Statement: ED Attending supervision documentation- [X] I saw and evaluated the patient. I have also reviewed all the pertinent lab results and diagnostic results. I agree with the findings and the plan of care as documented in the PA's/REPORTING CONSULTANT's documentation. Patient presents for evaluation of "not feeling good" prior to arrival. Patient states he didn't eat breakfast today but did have a cup of coffee and his medications. Physical examination shows a nonfocal neuro examination and a stable gait. [] I have reviewed the ED Record and agree with the PA's/REPORTING CONSULTANT's documentation. [] Additions or exceptions (if any) to the PAs/REPORTING CONSULTANT's note and plan are summarized below: [] (Ashly SHERWOOD,Ted Ruiz) Critical Care Note Critical Care Note Critical Care Time: non-applicable (David Suarez)
[2017-12-23 12:05] LABS: ABSOLUTE BASOPHIL COUNT 0 /CUMM (0.0-0.2); ABSOLUTE EOSINOPHIL COUNT 0.3 /CUMM (0.0-0.7); ABSOLUTE MONOCYTE COUNT 0.5 /CUMM (0.10-0.60); BASOPHIL % 0.5 % (0.0-2.0); EOSINOPHIL % 4.7 % (0-5); GRANULOCYTE % 69.5 % (42.2-75.2); MEAN CORPUSCULAR HGB 33.8 PG (27.0-31.0); MEAN CORPUSCULAR HGB CONC 33.3 G/DL (33.0-37.0); MEAN CORPUSCULAR VOLUME 101.5 FL (80.0-94.0); MEAN PLATELET VOLUME 7.9 FL (7.4-10.4); PLATELET COUNT 174 /CUMM (130-400); RBC DISTRIBUTION WIDTH 12.4 % (11.5-14.5); RED BLOOD CELL CT 4.23 /CUMM (4.70-6.10); WHITE BLOOD CELL COUNT 5.8 /CUMM (4.8-10.8)
[2017-12-23] MEDS ORDERED: ZOFRAN ODT4 M1 SL (13:00)
[2017-12-23 13:06] VITALS: BP 122/72
== END 2017-12-23 13:30 ==
LOC: ERH 10:12
PROVIDERS: Physician Assistant Medical
DX: R11.0 Nausea (principal)
CPT/HCPCS: 81003; 93005; 93010; J3101

== ENCOUNTER 2017-12-29 11:45 | Emergency (ER) | payer OTHER ==
[~2017-12-29] VITALS: Ht 190.5 cm; Wt 108.9 kg
[~2017-12-29 11:45] MED LIST changes: +ZOFRAN ODT4 M1 SL
--- NOTE | 2017-12-29 12:10 | ED GI/GU/ABDOMINAL COMPLAINT ---
History of Present Illness General Chief Complaint: General Adult Stated Complaint: PT BIBA CONSPATION FOR 2X DAYS Source: patient, old records, EMS Exam Limitations: no limitations Vital Signs & Intake/Output Vital Signs & Intake/Output Vital Signs Date Time Temp Pulse Resp B/P B/P Pulse O2 O2 Flow FiO2 Mean Ox Delivery Rate 12/29 1516 97.0 74 18 114/62 97 Room Air Room Air 12/29 1149 96.0 80 20 110/60 96 Room Air Allergies Coded Allergies: aspirin (RELATED TO BEING ON WARFARIN 07/23/16) Reconcile Medications Acetaminophen (Tylenol) 325 MG TABLET 2 TAB PO Q6H PRN PAIN (Reported) Albuterol Sulfate (Proair Hfa) 8.5 GM HFA.AER.AD 1 PUF INH Q6H PRN SOB ( Reported) Atorvastatin Calcium (Lipitor) 80 MG TABLET 0.5 TAB PO QPM CHOLESTEROL ( Reported) Budesonide/Formoterol Fumarate (Symbicort 80-4.5 Mcg Inhaler) 10.2 GM HFA.AER.AD 2 PUF INH BID COPD (Reported) Citalopram Hydrobromide (Citalopram HBr) 40 MG TABLET 1 TAB PO DAILY Anxiety and depression Cyanocobalamin (Vitamin B-12) 1,000 MCG TABLET 1 TAB PO DAILY SUPPLEMENT ( Reported) Dabigatran Etexilate Mesylate (Pradaxa 150 MG) 150 MG CAPSULE 1 CAP PO BID BLOOD THINNER (Reported) Docusate Sodium 100 MG CAPSULE 1 CAP PO BID PRN STOOL SOFTENER (Reported) Furosemide (Lasix) 20 MG TABLET 1 TAB PO QAM DIURETIC (Reported) Metoprolol Tartrate (Lopressor) 50 MG TABLET 1.5 TAB PO BID BP (Reported) Mirtazapine 7.5 MG TABLET 7.5 MG PO AT BEDTIME depression/sleep Multivitamin (One Daily Multivitamin) 1 EACH TABLET 1 TAB PO DAILY vitamin supplement Naltrexone HCl 50 MG TABLET 1 TAB PO DAILY ETOH (Reported) Ondansetron (Zofran Odt) 4 MG TAB.RAPDIS 1 TAB SL TID PRN NAUSEA Sildenafil Citrate (Viagra) 50 MG TABLET 1 TAB PO AD PRN ED (Reported) 1 hour before sexual activity Thiamine HCl (B-1) 100 MG TABLET 2 TAB PO DAILY SUPPLEMENT (Reported) Triage Note: PT BIBA TO TRIAGE FOR C/O CONSTIPATION X 2 DAYS. HAS NOT TRIED OTC MEDS. Triage Nurses Notes Reviewed? yes HPI: Patient brought in by EMS complaining of constipation for the past 2 days. Patient has been taking a stool softener without any relief. There is no pain. There is no nausea or vomiting. There is no dysuria. He has a normal appetite. Past History Travel History Traveled to [place] past 21 day No Medical History Any Pertinent Medical History? 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 FATHER ([place], [place]). Hx Contributory? No Review of Systems Review of Systems Constitutional: Reports: no symptoms. Respiratory: Reports: no symptoms. Cardiovascular: Reports: no symptoms. GI: Reports: see HPI, constipation. Musculoskeletal: Reports: no symptoms. Neurological/Psychological: Reports: no symptoms. Immunologic/Allergic: Reports: no symptoms. Physical Exam Physical Exam General Appearance: well developed/nourished, alert, awake, anxious, mild distress Head: atraumatic, normal appearance Eyes: Bilateral: PERRL, EOMI. Ears, Nose, Throat, Mouth: hearing grossly normal, moist mucous membrane Neck: normal inspection, supple, full range of motion Respiratory: normal breath sounds, chest non-tender, no respiratory distress, lungs clear Cardiovascular: regular rate/rhythm, normal peripheral pulses Gastrointestinal: normal bowel sounds, soft, non-tender, no organomegaly Back: normal inspection, normal range of motion Extremities: normal range of motion Neurologic/Psych: no motor/sensory deficits, awake, alert, oriented x 3, normal gait, normal mood/affect Core Measures ACS in differential dx? No Sepsis Present: No Sepsis Focused Exam Completed? No Progress Differential Diagnosis: bowel obstruction, ischemic bowel, inflamm bowel dis Plan of Care: Orders Procedure Date/time Status [id number] VIEWS 04/20 1209 Active Diagnostic Imaging: Viewed by Me: Radiology Read. Discussed w/RAD: Radiology Read. Radiology Impression: PATIENT: GUNJAN JULIO SR PRESENT AGE: 77 PATIENT ACCOUNT NO: [id number] : 40 LOCATION: [facility] ORDERING PHYSICIAN: Johan Zamudio MD SERVICE DATE: 12/29/17 EXAM TYPE: RAD - [id number] VIEWS EXAMINATION: XR ABDOMEN MULTIPLE VIEWS CLINICAL INDICATION: Obstruction. Constipation. COMPARISON: CT abdomen pelvis dated 05/13/2016 TECHNIQUE: 2 views of the abdomen. FINDINGS: No evidence of abnormal gaseous dilatation of the bowel loops. Fecal material noted in the large bowel. Atherosclerotic disease with intimal calcification. Degenerative changes lumbar spine and bilateral hips. IMPRESSION: No acute abnormality. DICTATED BY: Brittani Rogers MD DATE/TIME DICTATED:12/29/171400 TURNAROUND ENGINEER:BREEZY DATE/TIME TRANSCRIBED:12/29/171400 CONFIDENTIAL, DO NOT COPY WITHOUT APPROPRIATE AUTHORIZATION. <Electronically signed in Other Vendor System> SIGNED BY: Brittani Rogers MD 12/29/171407 Initial ED EKG: none Comments: PT ATE A SANDWICH IN THE ER WITHOUT DIFFICULTY Departure Departure Disposition: HOME OR SELF CARE Condition: Stable Clinical Impression Primary Impression: Constipation Referrals: Carmina Euceda MD (PCP/Family) Additional Instructions: CONTINUE THE STOOL SOFTNER USE A FLEET ENEMA NEEDED RETURN IF SYMPTOMS WORSEN OR FOR ANY CONCERNS Departure Forms: Customer Survey General Discharge Information
--- NOTE | 2017-12-29 14:08 | RADIOLOGY REPORT ---
EXAMINATION: XR ABDOMEN MULTIPLE VIEWS CLINICAL INDICATION: Obstruction. Constipation. COMPARISON: CT abdomen pelvis dated 05/13/2016 TECHNIQUE: 2 views of the abdomen. FINDINGS: No evidence of abnormal gaseous dilatation of the bowel loops. Fecal material noted in the large bowel. Atherosclerotic disease with intimal calcification. Degenerative changes lumbar spine and bilateral hips. IMPRESSION: No acute abnormality.
[2017-12-29 15:16] VITALS: BP 114/62
== END 2017-12-29 15:34 ==
LOC: ERH 11:45
DX: K59.00 Constipation, unspecified (principal)
CPT/HCPCS: 74021

== ENCOUNTER 2018-01-09 05:30 | Emergency (ER) | payer OTHER ==
--- NOTE | 2018-01-09 05:43 | ED DYSPNEA/ASTHMA COMPLAINT ---
History of Present Illness General Chief Complaint: General Adult Stated Complaint: BIBA, SOB Source: patient, old records, EMS Exam Limitations: no limitations Vital Signs & Intake/Output Vital Signs & Intake/Output Vital Signs Date Time Temp Pulse Resp B/P B/P Pulse O2 O2 Flow FiO2 Mean Ox Delivery Rate 01/09 0537 96 Room Air 01/09 0530 97.9 83 20 151/79 96 Room Air Allergies Coded Allergies: aspirin (RELATED TO BEING ON WARFARIN 01/09/18) Reconcile Medications Acetaminophen (Tylenol) 325 MG TABLET 2 TAB PO Q6H PRN PAIN (Reported) Albuterol Sulfate (Proair Hfa) 8.5 GM HFA.AER.AD 1 PUF INH Q6H PRN SOB ( Reported) Atorvastatin Calcium (Lipitor) 80 MG TABLET 0.5 TAB PO QPM CHOLESTEROL ( Reported) Budesonide/Formoterol Fumarate (Symbicort 80-4.5 Mcg Inhaler) 10.2 GM HFA.AER.AD 2 PUF INH BID COPD (Reported) Citalopram Hydrobromide (Citalopram HBr) 40 MG TABLET 1 TAB PO DAILY Anxiety and depression Cyanocobalamin (Vitamin B-12) 1,000 MCG TABLET 1 TAB PO DAILY SUPPLEMENT ( Reported) Dabigatran Etexilate Mesylate (Pradaxa 150 MG) 150 MG CAPSULE 1 CAP PO BID BLOOD THINNER (Reported) Docusate Sodium 100 MG CAPSULE 1 CAP PO BID PRN STOOL SOFTENER (Reported) Furosemide (Lasix) 20 MG TABLET 1 TAB PO QAM DIURETIC (Reported) Metoprolol Tartrate (Lopressor) 50 MG TABLET 1.5 TAB PO BID BP (Reported) Mirtazapine 7.5 MG TABLET 7.5 MG PO AT BEDTIME depression/sleep Multivitamin (One Daily Multivitamin) 1 EACH TABLET 1 TAB PO DAILY vitamin supplement Naltrexone HCl 50 MG TABLET 1 TAB PO DAILY ETOH (Reported) Ondansetron (Zofran Odt) 4 MG TAB.RAPDIS 1 TAB SL TID PRN NAUSEA Sildenafil Citrate (Viagra) 50 MG TABLET 1 TAB PO AD PRN ED (Reported) 1 hour before sexual activity Thiamine HCl (B-1) 100 MG TABLET 2 TAB PO DAILY SUPPLEMENT (Reported) Triage Note: TRIAGE: BIBA FOR C/O SOB, USING INHALERS AND SYMBICORT W/O RELIEF. ON ARRIVAL, PATIENT NOW STATES, "WAS OUT WITH A GIRL LAST NIGHT, DRANK A BUD LIGHT AND NEVER STOPPED. THEN I CAME HOME AND THREW UP. TOOK A ZOFRAN." DENIES CURRENT NAUSEA. ARRIVES ON 2LNC, O2l96%, LUNGS CLEAR. Triage Nurses Notes Reviewed? yes HPI: Patient brought in by ambulance for difficulty breathing. Patient states that all started earlier this evening when he drank a few beers a catatonic. Patient then went to bed and just shortness of breath. On the symptoms didn't go away he called 911. Upon presentation to the emergency department he is feeling much better. Patient has a history of cysts with multiple ER visits. Patient denies any chest pain or palpitations. No fevers or chills. Patient states that earlier tonight he did vomit once and took Zofran and he is no longer nauseous. (Robb SHERWOOD,Johan Davis) Past History Travel History Traveled to [place] past 21 day No Medical History Any Pertinent Medical History? 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 FATHER ([place], [place]). Hx Contributory? No (Robb SHERWOOD,Johan Davis) Review of Systems Review of Systems Constitutional: Reports: no symptoms. EENTM: Reports: no symptoms. Respiratory: Reports: see HPI, short of breath. Cardiovascular: Reports: no symptoms. GI: Reports: see HPI, nausea, vomiting. Genitourinary: Reports: no symptoms. Musculoskeletal: Reports: no symptoms. Skin: Reports: no symptoms. Neurological/Psychological: Reports: no symptoms. Hematologic/Endocrine: Reports: no symptoms. Immunologic/Allergic: Reports: no symptoms. All Other Systems: Reviewed and Negative (Robb SHERWOOD,Johan Davis) Physical Exam Physical Exam General Appearance: well developed/nourished, alert, awake, anxious, mild distress Head: atraumatic, normal appearance Eyes: Bilateral: PERRL, EOMI. Ears, Nose, Throat: normal pharynx, normal ENT inspection, hearing grossly normal Neck: normal inspection, supple, full range of motion Respiratory: normal breath sounds, chest non-tender, no respiratory distress, lungs clear Cardiovascular: regular rate/rhythm, normal peripheral pulses Gastrointestinal: normal bowel sounds, soft, non-tender Extremities: normal inspection, normal capillary refill, normal range of motion, pedal edema Neurologic/Psych: no motor/sensory deficits, awake, alert, normal gait, normal mood/affect Skin: intact, normal color, warm/dry Lymphatic: no anterior cervical rosmery Core Measures ACS in differential dx? No CVA/TIA Diagnosis No Sepsis Present: No Sepsis Focused Exam Completed? No (Robb SHERWOOD,Johan Davis) Progress Differential Diagnosis: asthma, bronchitis, COPD, pneumonia, ANXIETY Plan of Care: Orders Procedure Date/time Status Regular Diet 01/09 B Active Initial ED EKG: none Hand-Off Endorsed To: Ted Limon MD Endorsed Time: 0700 Pending: other (RE-EVAL) Comments: Patient is feeling much better and does not want anything done here in the emergency room. Patient states that he is feeling much better and just wants to sit for a little bit. 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 01/09/2018 8:26:32 AM GUNJAN feels back to baseline and offers no complaint at this time. So long as he tolerates breakfast I feel he is stable for discharge. (Ashly SHERWOOD,Ted Ruiz) Departure Departure Disposition: HOME OR SELF CARE Condition: Stable Referrals: Carmina Euceda MD (PCP/Family) Departure Forms: Customer Survey General Discharge Information (Johan Zamudio MD) Departure Clinical Impression Primary Impression: Dyspnea Qualifiers: Dyspnea type: unspecified Qualified Code: R06.00 - Dyspnea, unspecified Additional Instructions: Follow-up with your primary care physician this week for reevaluation. Return if any concerns or sudden worsening. Thank you for choosing the [facility] Emergency Department for your care. It was a pleasure to serve you today. Ted Limon M.D. [facility] (Ashly SHERWOOD,Ted Ruiz) Critical Care Note Critical Care Note Critical Care Time: non-applicable (Robb SHERWOOD,Johan Davis)
[2018-01-09 09:40] VITALS: BP 142/83
[2018-02-15] MEDS ORDERED: DULCOLAX5 M1 PO (09:22)
[2018-04-19] MEDS ORDERED: LEVSIN-SL0.125 MG SL (07:00)
[2018-04-19] MEDS ORDERED: ZOFRAN ODT4 M1 SL (07:00)
[2018-05-17] MEDS ORDERED: SENNA8.6 M3 PO (07:12)
[2018-05-20] MEDS ORDERED: LEVSIN-SL0.125 MG SL (18:00)
[2018-05-20] MEDS ORDERED: ZOFRAN ODT4 M1 SL (18:00)
[2018-05-25] MEDS ORDERED: ROBITUSSIN COU237 M1 PO (06:46)
[2018-05-30] MEDS ORDERED: PREDNISOLO15 MG/5 M4 PO ×2 (00:12→01:25)
[2018-05-30] MEDS ORDERED: AUGMENTIN 875-1 EACH PO ×2 (00:12→01:25)
[2018-05-30] MEDS ORDERED: PROVENTIL HFA6.7 GM INH (01:25)
== END 2018-01-09 10:09 ==
LOC: ERH 05:30
DX: R06.00 Dyspnea, unspecified (principal)

== ENCOUNTER 2018-01-26 03:50 | Emergency (ER) | payer OTHER ==
[~2018-01-26] VITALS: Ht 190.5 cm; Wt 106.6 kg
--- NOTE | 2018-01-26 04:49 | ED DYSPNEA/ASTHMA COMPLAINT ---
See Addendum History of Present Illness General Chief Complaint: Dyspnea (COPD, CHF, Other) Stated Complaint: DIFFICULTY BREATHING Source: patient, old records, EMS Exam Limitations: no limitations Vital Signs & Intake/Output Vital Signs & Intake/Output Vital Signs Date Time Temp Pulse Resp B/P B/P Pulse O2 O2 Flow FiO2 Mean Ox Delivery Rate 01/26 0613 97.3 82 18 164/88 98 Room Air 01/26 0350 97.9 80 18 156/76 95 Room Air Allergies Coded Allergies: aspirin (RELATED TO BEING ON WARFARIN 01/09/18) Reconcile Medications Acetaminophen (Tylenol) 325 MG TABLET 2 TAB PO Q6H PRN PAIN (Reported) Albuterol Sulfate (Proair Hfa) 8.5 GM HFA.AER.AD 1 PUF INH Q6H PRN SOB ( Reported) Atorvastatin Calcium (Lipitor) 80 MG TABLET 0.5 TAB PO QPM CHOLESTEROL ( Reported) Budesonide/Formoterol Fumarate (Symbicort 80-4.5 Mcg Inhaler) 10.2 GM HFA.AER.AD 2 PUF INH BID COPD (Reported) Citalopram Hydrobromide (Citalopram HBr) 40 MG TABLET 1 TAB PO DAILY Anxiety and depression Cyanocobalamin (Vitamin B-12) 1,000 MCG TABLET 1 TAB PO DAILY SUPPLEMENT ( Reported) Dabigatran Etexilate Mesylate (Pradaxa 150 MG) 150 MG CAPSULE 1 CAP PO BID BLOOD THINNER (Reported) Docusate Sodium 100 MG CAPSULE 1 CAP PO BID PRN STOOL SOFTENER (Reported) Furosemide (Lasix) 20 MG TABLET 1 TAB PO QAM DIURETIC (Reported) Metoprolol Tartrate (Lopressor) 50 MG TABLET 1.5 TAB PO BID BP (Reported) Mirtazapine 7.5 MG TABLET 7.5 MG PO AT BEDTIME depression/sleep Multivitamin (One Daily Multivitamin) 1 EACH TABLET 1 TAB PO DAILY vitamin supplement Naltrexone HCl 50 MG TABLET 1 TAB PO DAILY ETOH (Reported) Ondansetron (Zofran Odt) 4 MG TAB.RAPDIS 1 TAB SL TID PRN NAUSEA Sildenafil Citrate (Viagra) 50 MG TABLET 1 TAB PO AD PRN ED (Reported) 1 hour before sexual activity Thiamine HCl (B-1) 100 MG TABLET 2 TAB PO DAILY SUPPLEMENT (Reported) Triage Note: SEE NURSES NOTES Triage Nurses Notes Reviewed? yes Onset: Just prior to arrival Duration: minute(s):, constant, gone now Timing: recent history Severity: mild Activities at Onset: sleep Prior Episodes/Possible Cause: frequent episodes Modifying Factors: Improves With: other (Symbicort oxygen). Associated Symptoms: anxiety, headache, GI upset HPI: Prior to admission patient awoke short of breath. He took his Symbicort inhaler and call 911. His symptoms improved after oxygen. He now complains of GI upset and headache. He denies fever chills nausea vomiting chest pain cough diarrhea dysuria rash bleeding. Past History Travel History Traveled to [place] past 21 day No Medical History Any Pertinent Medical History? 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 FATHER ([place], [place]). Hx Contributory? No Review of Systems Review of Systems Constitutional: Reports: no symptoms. EENTM: Reports: no symptoms. Respiratory: Reports: see HPI, short of breath. Cardiovascular: Reports: no symptoms. GI: Reports: see HPI, abdominal pain. Genitourinary: Reports: no symptoms. Musculoskeletal: Reports: no symptoms. Skin: Reports: no symptoms. Neurological/Psychological: Reports: see HPI, headache. Hematologic/Endocrine: Reports: no symptoms. Immunologic/Allergic: Reports: no symptoms. All Other Systems: Reviewed and Negative Physical Exam Physical Exam General Appearance: well developed/nourished, alert, awake, anxious, comfortable Head: atraumatic, normal appearance Eyes: Bilateral: normal appearance, PERRL, EOMI. Ears, Nose, Throat: normal pharynx, normal ENT inspection, hearing grossly normal Neck: normal inspection, supple, full range of motion, no midline tenderness Respiratory: normal breath sounds, chest non-tender, no respiratory distress, quiet respiration, lungs clear Cardiovascular: regular rate/rhythm, normal peripheral pulses, norml femoral pulses equa Peripheral Pulses: 4+ carotid (R), 4+ carotid (L) Gastrointestinal: normal bowel sounds, soft, non-tender, no organomegaly Extremities: normal inspection, normal capillary refill, normal range of motion, no edema Neurologic/Psych: no motor/sensory deficits, awake, alert, oriented x 3, normal gait, 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 No CVA/TIA Diagnosis No Sepsis Present: No Sepsis Focused Exam Completed? No Progress Differential Diagnosis: asthma, bronchitis, CHF, COPD, pneumonia Plan of Care: Orders Procedure Date/time Status Regular Diet 01/26 B Active EKG 01/26 0354 Active Initial ED EKG: normal axis, normal intervals, normal p-waves, normal QRS complex, NSR, no ST T wave changes Prior EKG: unchanged Departure Departure Time of Disposition: 0700 Disposition: HOME OR SELF CARE Condition: Stable Clinical Impression Primary Impression: Dyspnea Secondary Impressions: Headache Referrals: Carmina Euceda MD (PCP/Family) Departure Forms: Customer Survey General Discharge Information Critical Care Note Critical Care Note Critical Care Time: non-applicable
[2018-01-26 06:13] VITALS: BP 164/88
== END 2018-01-26 08:05 ==
LOC: ERH 03:50
DX: R06.00 Dyspnea, unspecified (principal); R51 Headache
CPT/HCPCS: 93005; 93010

== ENCOUNTER 2018-02-21 07:35 | Emergency (ER) | payer OTHER ==
[~2018-02-21] VITALS: Ht 190.5 cm; Wt 108.9 kg
[~2018-02-21 07:35] MED LIST changes: +DULCOLAX5 M1 PO
[2018-02-21 07:37] VITALS: BP 169/79
--- NOTE | 2018-02-21 07:49 | ED GENERAL ADULT ---
History of Present Illness General Chief Complaint: Dyspnea (COPD, CHF, Other) Stated Complaint: BIBA SOB Source: patient, family Exam Limitations: no limitations Vital Signs & Intake/Output Vital Signs & Intake/Output Vital Signs Date Time Temp Pulse Resp B/P B/P Pulse O2 O2 Flow FiO2 Mean Ox Delivery Rate 02/21 0737 97.8 62 20 169/79 97 Room Air Allergies Coded Allergies: aspirin (RELATED TO BEING ON WARFARIN 01/09/18) Reconcile Medications Acetaminophen (Tylenol) 325 MG TABLET 2 TAB PO Q6H PRN PAIN (Reported) Albuterol Sulfate (Proair Hfa) 8.5 GM HFA.AER.AD 1 PUF INH Q6H PRN SOB ( Reported) Atorvastatin Calcium (Lipitor) 80 MG TABLET 0.5 TAB PO QPM CHOLESTEROL ( Reported) Bisacodyl (Dulcolax) 5 MG TABLET.DR 2 TAB PO AD constipation Budesonide/Formoterol Fumarate (Symbicort 80-4.5 Mcg Inhaler) 10.2 GM HFA.AER.AD 2 PUF INH BID COPD (Reported) Citalopram Hydrobromide (Citalopram HBr) 40 MG TABLET 1 TAB PO DAILY Anxiety and depression Cyanocobalamin (Vitamin B-12) 1,000 MCG TABLET 1 TAB PO DAILY SUPPLEMENT ( Reported) Dabigatran Etexilate Mesylate (Pradaxa 150 MG) 150 MG CAPSULE 1 CAP PO BID BLOOD THINNER (Reported) Docusate Sodium 100 MG CAPSULE 1 CAP PO BID PRN STOOL SOFTENER (Reported) Furosemide (Lasix) 20 MG TABLET 1 TAB PO QAM DIURETIC (Reported) Metoprolol Tartrate (Lopressor) 50 MG TABLET 1.5 TAB PO BID BP (Reported) Mirtazapine 7.5 MG TABLET 7.5 MG PO AT BEDTIME depression/sleep Multivitamin (One Daily Multivitamin) 1 EACH TABLET 1 TAB PO DAILY vitamin supplement Naltrexone HCl 50 MG TABLET 1 TAB PO DAILY ETOH (Reported) Ondansetron (Zofran Odt) 4 MG TAB.RAPDIS 1 TAB SL TID PRN NAUSEA Sildenafil Citrate (Viagra) 50 MG TABLET 1 TAB PO AD PRN ED (Reported) 1 hour before sexual activity Thiamine HCl (B-1) 100 MG TABLET 2 TAB PO DAILY SUPPLEMENT (Reported) Triage Note: PT BIBA FROM HOME FOR C/O RUBIO. REPORTS HX OF COPD. ON ARRIVAL PT IS 97% ON RA AND IN NO VISIBLE RESPIRATORY DISTRESS. HE REPORTS FEELING BETTER. DENIES CP. +3 TO +4 PITTING EDEMA TO BLE. Triage Nurses Notes Reviewed? yes Onset: Abrupt Duration: minute(s): Timing: recent history HPI: 02/21/18 Patient seen on arrival 78-year-old man presents to the emergency department status post episode of shortness of breath. He says he was constipated and took Dulcolax, and he had diarrhea. He had an episode of shortness of breath that resolved after using his inhaler. Currently in the ED has no complaints. No chest pain, no abdominal pain, no fever. Past medical history of atrial fibrillation. Past History Travel History Traveled to [place] past 21 day No Medical History Any Pertinent Medical History? 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 FATHER ([place], [place]). Hx Contributory? No Review of Systems Review of Systems Constitutional: Denies: fever. EENTM: Reports: no symptoms. Respiratory: Reports: see HPI. Denies: cough. Cardiovascular: Denies: chest pain. GI: Denies: abdominal pain. Genitourinary: Reports: no symptoms. Musculoskeletal: Reports: no symptoms. Skin: Reports: no symptoms. Neurological/Psychological: Reports: no symptoms. Hematologic/Endocrine: Denies: bruising, bleeding. Immunologic/Allergic: Reports: no symptoms. Physical Exam Physical Exam General Appearance: well developed/nourished, alert, awake, anxious Head: atraumatic, normal appearance Eyes: Bilateral: normal appearance, PERRL, EOMI. Ears, Nose, Throat: normal pharynx, normal ENT inspection Neck: normal inspection, supple, full range of motion Respiratory: normal breath sounds, chest non-tender, no respiratory distress Cardiovascular: irregularly irregular Peripheral Pulses: 4+ radial (R), 4+ radial (L) Gastrointestinal: soft, non-tender Back: normal range of motion Extremities: pedal edema, no calf tenderness Neurologic/Psych: no motor/sensory deficits, awake, alert, oriented x 3 Skin: stasis dermatitis lower extremities Core Measures ACS in differential dx? No CVA/TIA Diagnosis: No Sepsis Present: No Sepsis Focused Exam Completed? No Progress Differential Diagnoses I considered the following diagnoses in my evaluation of the patient: [COPD, CHF , pneumonia, pulmonary embolism] Plan of Care: Orders Procedure Date/time Status Heart Healthy Diet 02/21 L Active TROPONIN LEVEL 02/21 0829 Complete COMPREHENSIVE METABOLIC PANEL 02/21 0829 Complete CBC WITHOUT DIFFERENTIAL 02/21 0829 Complete EKG 02/21 0736 Active Laboratory Tests 02/21/18 0851: Anion Gap 8, Estimated GFR > 60, BUN/Creatinine Ratio 15.0, Glucose 139 H, Calcium 8.9, Total Bilirubin 0.8, AST 30, ALT 32, Alkaline Phosphatase 78, Troponin I < 0.01, Total Protein 6.8, Albumin 3.6, Globulin 3.2, Albumin/ Globulin Ratio 1.1, CBC w Diff NO MAN DIFF REQ, RBC 3.99 L, MCV 101.3 H, MCH 34.2 H, MCHC 33.8, RDW 12.7, MPV 7.8, Gran % 65.8, Lymphocytes % 19.8 L, Monocytes % 10.8 H, Eosinophils % 3.2, Basophils % 0.4, Absolute Granulocytes 3.4, Absolute Lymphocytes 1.0 L, Absolute Monocytes 0.5, Absolute Eosinophils 0.2, Absolute Basophils 0 Initial ED EKG: AFIB Prior EKG: unchanged Departure Departure Disposition: HOME OR SELF CARE Condition: Stable Clinical Impression Primary Impression: COPD (chronic obstructive pulmonary disease) Referrals: Carmina Euceda MD (PCP/Family) Departure Forms: Customer Survey General Discharge Information Comments The patient was comfortable on reevaluation. Vital signs are stable. EKG unchanged. Labs unremarkable. He was discharged and will follow-up with his doctor this week. Continue his current medications and plan of care. PATIENT: GUNJAN JULIO PRESENT AGE: 78 PATIENT ACCOUNT NO: [id number] : 40 LOCATION: [facility] ORDERING PHYSICIAN: Ted Lee DO SERVICE DATE: 02/21/18 EXAM TYPE: RAD - XRY-PORTABLE CHEST XRAY EXAMINATION: XR PORTABLE CHEST CLINICAL INFORMATION: Shortness of breath COMPARISON: 02/17/2018 TECHNIQUE: Portable frontal view of the chest was obtained. FINDINGS: Lungs are symmetrically expanded and clear. The degree of pulmonary inflation has improved compared to 02/17/2018. No evidence of consolidation, interstitial disease or pleural effusion. Cardiac silhouette is borderline enlarged. The hilar contours are normal. The visualized bones are intact. IMPRESSION: No acute pulmonary disease. DICTATED BY: Gustavo Montgomery MD DATE/TIME DICTATED:02/21/18846 SWEATBAND SEPARATOR:BREEZY DATE/TIME TRANSCRIBED:02/21/18846 CONFIDENTIAL, DO NOT COPY WITHOUT APPROPRIATE AUTHORIZATION. <Electronically signed in Other Vendor System> SIGNED BY: Gustavo Montgomery MD 02/21/18 0854 Critical Care Note Critical Care Note Critical Care Time: non-applicable
--- NOTE | 2018-02-21 08:54 | RADIOLOGY REPORT ---
EXAMINATION: XR PORTABLE CHEST CLINICAL INFORMATION: Shortness of breath COMPARISON: 02/17/2018 TECHNIQUE: Portable frontal view of the chest was obtained. FINDINGS: Lungs are symmetrically expanded and clear. The degree of pulmonary inflation has improved compared to 02/17/2018. No evidence of consolidation, interstitial disease or pleural effusion. Cardiac silhouette is borderline enlarged. The hilar contours are normal. The visualized bones are intact. IMPRESSION: No acute pulmonary disease.
[2018-02-21 09:01] LABS: ABSOLUTE BASOPHIL COUNT 0 /CUMM (0.0-0.2); ABSOLUTE EOSINOPHIL COUNT 0.2 /CUMM (0.0-0.7); ABSOLUTE GRANULOCYTE CT 3.4 /CUMM (1.4-6.5); ABSOLUTE MONOCYTE COUNT 0.5 /CUMM (0.10-0.60); BASOPHIL % 0.4 % (0.0-2.0); EOSINOPHIL % 3.2 % (0-5); GRANULOCYTE % 65.8 % (42.2-75.2); HEMATOCRIT 40.4 % (42-52); MEAN CORPUSCULAR HGB 34.2 PG (27.0-31.0); MEAN CORPUSCULAR HGB CONC 33.8 G/DL (33.0-37.0); MEAN CORPUSCULAR VOLUME 101.3 FL (80.0-94.0); MEAN PLATELET VOLUME 7.8 FL (7.4-10.4); PLATELET COUNT 163 /CUMM (130-400); RBC DISTRIBUTION WIDTH 12.7 % (11.5-14.5); RED BLOOD CELL CT 3.99 /CUMM (4.70-6.10); WHITE BLOOD CELL COUNT 5.1 /CUMM (4.8-10.8)
== END 2018-02-21 10:32 ==
LOC: ERH 07:35
PROVIDERS: Emergency Medicine
DX: J44.9 Chronic obstructive pulmonary disease, unspecified (principal); Z87.891 Personal history of nicotine dependence; R06.02 Shortness of breath
CPT/HCPCS: 71045; 93005; 93010; 96374; J2930

== ENCOUNTER 2018-02-23 17:27 | Emergency (ER) | payer OTHER ==
[~2018-02-23] VITALS: Ht 190.5 cm; Wt 108.9 kg
--- NOTE | 2018-02-23 19:24 | ED GI/GU/ABDOMINAL COMPLAINT ---
History of Present Illness General Chief Complaint: General Adult Stated Complaint: BIBA FOR CONSTIPATION Source: patient Exam Limitations: no limitations Vital Signs & Intake/Output Vital Signs & Intake/Output Vital Signs Date Time Temp Pulse Resp B/P B/P Pulse O2 O2 Flow FiO2 Mean Ox Delivery Rate 02/24 2108 Room Air 02/24 2108 97.5 81 18 126/79 97 Room Air 02/23 1746 97.2 85 18 133/82 96 Room Air ED Intake and Output 02/24 0000 02/23 1200 Intake Total 0 Output Total Balance 0 Intake, Oral 0 Patient 240 lb Weight Weight Reported by Patient Measurement Method Allergies Coded Allergies: aspirin (RELATED TO BEING ON WARFARIN 01/09/18) Reconcile Medications Acetaminophen (Tylenol) 325 MG TABLET 2 TAB PO Q6H PRN PAIN (Reported) Albuterol Sulfate (Proair Hfa) 8.5 GM HFA.AER.AD 1 PUF INH Q6H PRN SOB ( Reported) Atorvastatin Calcium (Lipitor) 80 MG TABLET 0.5 TAB PO QPM CHOLESTEROL ( Reported) Bisacodyl (Dulcolax) 5 MG TABLET.DR 2 TAB PO AD constipation Budesonide/Formoterol Fumarate (Symbicort 80-4.5 Mcg Inhaler) 10.2 GM HFA.AER.AD 2 PUF INH BID COPD (Reported) Citalopram Hydrobromide (Citalopram HBr) 40 MG TABLET 1 TAB PO DAILY Anxiety and depression Cyanocobalamin (Vitamin B-12) 1,000 MCG TABLET 1 TAB PO DAILY SUPPLEMENT ( Reported) Dabigatran Etexilate Mesylate (Pradaxa 150 MG) 150 MG CAPSULE 1 CAP PO BID BLOOD THINNER (Reported) Docusate Sodium 100 MG CAPSULE 1 CAP PO BID PRN STOOL SOFTENER (Reported) Fleet Enema (Fleet Pedia-Lax Enema) 9.5 GRAM-3.5 GRAM/59 ML ENEMA 1 UNIT [place] TID PRN CONSTIPATION Furosemide (Lasix) 20 MG TABLET 1 TAB PO QAM DIURETIC (Reported) Metoprolol Tartrate (Lopressor) 50 MG TABLET 1.5 TAB PO BID BP (Reported) Mirtazapine 7.5 MG TABLET 7.5 MG PO AT BEDTIME depression/sleep Multivitamin (One Daily Multivitamin) 1 EACH TABLET 1 TAB PO DAILY vitamin supplement Naltrexone HCl 50 MG TABLET 1 TAB PO DAILY ETOH (Reported) Ondansetron (Zofran Odt) 4 MG TAB.RAPDIS 1 TAB SL TID PRN NAUSEA Peg 3350/Na Sulf,Bicarb,Cl/KCl (Golytely Solution) 236-22.74G SOLN.RECON 1 UNIT PO X1 PRN CONSTIPATION Polyethylene Glycol 3350 (Miralax) 17 GRAM/DOSE POWDER 17 GM PO BID PRN CONSTIPATION mix with water, juice, soda, coffee or tea Sildenafil Citrate (Viagra) 50 MG TABLET 1 TAB PO AD PRN ED (Reported) 1 hour before sexual activity Thiamine HCl (B-1) 100 MG TABLET 2 TAB PO DAILY SUPPLEMENT (Reported) Triage Note: PT BIBA FOR C/O CONSTIPATION ALL DAY. PT STATES HE STARTED TO GO AND HAD A HARD TIME GOING AND THEN HE TRIED TO REACH BACK AND PULL THE BM OUT OF HIS AND HE NOTICES BLOOD ON HIS HAND. PT TOOK A CHASE LAXATIVE ABOUT 1700. Triage Nurses Notes Reviewed? yes Onset: Gradual Duration: day(s): Timing: recent history Quality/Severity: cramping Location: generalized abdomen Radiation: no radiation Activities at Onset: none Prior Abdominal Problems: similar symptoms Modifying Factors: Worsens With: defecating. Associated Symptoms: difficulty defecating HPI: 78 yo gentleman presents with constipation. He notes, "I had hard stools today... I had to put my finger in my rectum to help me evacuate.... I had to push real hard." He notes this has happened before. He is otherwise well and has no other concerns. He has no abdominal pain, nausea, vomiting, diarrhea, reflux, chest pain. He wishes to defer blood work. Past History Travel History Traveled to [place] past 21 day No Medical History Any Pertinent Medical History? 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 FATHER ([place], [place]). Hx Contributory? No Review of Systems Review of Systems Constitutional: Denies: see HPI. Physical Exam Physical Exam General Appearance: well developed/nourished, no apparent distress, alert Gastrointestinal: see below Comments: Review of Systems - except as otherwise noted in HPI Review of Systems Constitutional:no symptoms. EENTM:no symptoms. Respiratory:no symptoms. Cardiovascular:no symptoms. GI:no symptoms. Genitourinary:no symptoms. Musculoskeletal:no symptoms. Skin:no symptoms. Neurological/Psychological:no symptoms. Hematologic/Endocrine:no symptoms. Immunologic/Allergic:no symptoms. All Other Systems: Reviewed and Negative Physical Exam Physical Exam General Appearance: well developed/nourished, no apparent distress Head: atraumatic, normal appearance Eyes: Bilateral: normal appearance. Ears, Nose, Throat: normal pharynx, normal ENT inspection Neck: normal inspection, supple, full range of motion Respiratory: normal breath sounds, chest non-tender, no respiratory distress, quiet respiration, lungs clear Cardiovascular: regular rate/rhythm Gastrointestinal: normal bowel sounds, soft, non-tender, no organomegaly Back: normal inspection, normal range of motion Extremities: normal inspection, normal capillary refill, normal range of motion, no edema Neurologic/Psych: no motor/sensory deficits, awake, alert, oriented x 3 Skin: intact, normal color, warm/dry Core Measures ACS in differential dx? No Sepsis Present: No Sepsis Focused Exam Completed? No Progress Differential Diagnosis: constipation versus other Plan of Care: See below, patient wishes to take enemas in the comfort of his own home. Initial ED EKG: none Departure Departure Disposition: HOME OR SELF CARE Condition: Stable Clinical Impression Primary Impression: Constipation Referrals: Carmina Euceda MD (PCP/Family) Departure Forms: Customer Survey General Discharge Information Prescriptions: Current Visit Scripts Peg 3350/Na Sulf,Bicarb,Cl/KCl (Golytely Solution) 1 UNIT PO X1 PRN CONSTIPATION #1 UNIT Polyethylene Glycol 3350 (Miralax) 17 GM PO BID PRN CONSTIPATION #255 GM Ref 2 mix with water, juice, soda, coffee or tea Fleet Enema (Fleet Pedia-Lax Enema) 1 UNIT [place] TID PRN CONSTIPATION #9 UNIT Comments discussed at length... pt preferred to take the enemas at home... pt to then have bowel clean out with golytely and then take miralax.... benign exam... labs deferred... close follow up advised.
[2018-02-23] MEDS ORDERED: MIRALAX119 GM PO (21:07)
[2018-02-23] MEDS ORDERED: GOLYTELY SOLU4000 ML PO (21:07)
[2018-02-23] MEDS ORDERED: FLEET PEDIA-LAX66 ML PR (21:07)
[2018-02-23 21:08] VITALS: BP 126/79
== END 2018-02-23 21:12 ==
LOC: ERH 17:27
DX: K59.00 Constipation, unspecified (principal)

== ENCOUNTER 2018-02-24 03:54 | Emergency (ER) | payer OTHER ==
[~2018-02-24] VITALS: Ht 190.5 cm; Wt 108.9 kg
[~2018-02-24 03:54] MED LIST changes: +FLEET PEDIA-LAX66 ML PR; +GOLYTELY SOLU4000 ML PO; +MIRALAX119 GM PO
--- NOTE | 2018-02-24 04:01 | ED GI/GU/ABDOMINAL COMPLAINT ---
History of Present Illness General Chief Complaint: Abdominal Pain/Flank Pain Stated Complaint: ABD PAIN/CONSTIPATION? Source: patient Exam Limitations: no limitations Vital Signs & Intake/Output Vital Signs & Intake/Output Vital Signs Date Time Temp Pulse Resp B/P B/P Pulse O2 O2 Flow FiO2 Mean Ox Delivery Rate 02/24 0359 Room Air 02/24 0358 97.1 74 18 153/78 95 Room Air Allergies Coded Allergies: aspirin (RELATED TO BEING ON WARFARIN 01/09/18) Reconcile Medications Acetaminophen (Tylenol) 325 MG TABLET 2 TAB PO Q6H PRN PAIN (Reported) Albuterol Sulfate (Proair Hfa) 8.5 GM HFA.AER.AD 1 PUF INH Q6H PRN SOB ( Reported) Atorvastatin Calcium (Lipitor) 80 MG TABLET 0.5 TAB PO QPM CHOLESTEROL ( Reported) Bisacodyl (Dulcolax) 5 MG TABLET.DR 2 TAB PO AD constipation Budesonide/Formoterol Fumarate (Symbicort 80-4.5 Mcg Inhaler) 10.2 GM HFA.AER.AD 2 PUF INH BID COPD (Reported) Citalopram Hydrobromide (Citalopram HBr) 40 MG TABLET 1 TAB PO DAILY Anxiety and depression Cyanocobalamin (Vitamin B-12) 1,000 MCG TABLET 1 TAB PO DAILY SUPPLEMENT ( Reported) Dabigatran Etexilate Mesylate (Pradaxa 150 MG) 150 MG CAPSULE 1 CAP PO BID BLOOD THINNER (Reported) Docusate Sodium 100 MG CAPSULE 1 CAP PO BID PRN STOOL SOFTENER (Reported) Fleet Enema (Fleet Pedia-Lax Enema) 9.5 GRAM-3.5 GRAM/59 ML ENEMA 1 UNIT SC TID PRN CONSTIPATION Furosemide (Lasix) 20 MG TABLET 1 TAB PO QAM DIURETIC (Reported) Metoprolol Tartrate (Lopressor) 50 MG TABLET 1.5 TAB PO BID BP (Reported) Mirtazapine 7.5 MG TABLET 7.5 MG PO AT BEDTIME depression/sleep Multivitamin (One Daily Multivitamin) 1 EACH TABLET 1 TAB PO DAILY vitamin supplement Naltrexone HCl 50 MG TABLET 1 TAB PO DAILY ETOH (Reported) Ondansetron (Zofran Odt) 4 MG TAB.RAPDIS 1 TAB SL TID PRN NAUSEA Peg 3350/Na Sulf,Bicarb,Cl/KCl (Golytely Solution) 236-22.74G SOLN.RECON 1 UNIT PO X1 PRN CONSTIPATION Polyethylene Glycol 3350 (Miralax) 17 GRAM/DOSE POWDER 17 GM PO BID PRN CONSTIPATION mix with water, juice, soda, coffee or tea Sildenafil Citrate (Viagra) 50 MG TABLET 1 TAB PO AD PRN ED (Reported) 1 hour before sexual activity Thiamine HCl (B-1) 100 MG TABLET 2 TAB PO DAILY SUPPLEMENT (Reported) Triage Note: PT BIBA C/O CONSTIPATION. PT D/C FROM HERE A FEW HOURS AGO FOR SAME. PT REPORTS HAD +BM AT HOME, BUT THEN COULD NOT SLEEP. Triage Nurses Notes Reviewed? yes Onset: Gradual Duration: day(s): Timing: recent history Quality/Severity: cramping Location: generalized abdomen Radiation: no radiation Prior Abdominal Problems: similar symptoms Modifying Factors: Worsens With: defecating, other (difficulty with defecation). 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 "I think I need an enema here." Past History Travel History Traveled to [place] past 21 day No Medical History Any Pertinent Medical History? 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 FATHER ([place], [place]). Hx Contributory? No Review of Systems Review of Systems Constitutional: Reports: no symptoms. EENTM: Reports: no symptoms. Respiratory: Reports: no symptoms. Cardiovascular: Reports: no symptoms. GI: Reports: no symptoms. Genitourinary: Reports: no symptoms. Musculoskeletal: Reports: no symptoms. Skin: Reports: no symptoms. Neurological/Psychological: Reports: no symptoms. Hematologic/Endocrine: Reports: no symptoms. Immunologic/Allergic: Reports: no symptoms. All Other Systems: Reviewed and Negative Physical Exam Physical Exam General Appearance: well developed/nourished, no apparent distress Gastrointestinal: normal bowel sounds, soft, non-tender, no organomegaly Comments: Review of Systems - except as otherwise noted in HPI Physical Exam Physical Exam General Appearance: well developed/nourished, no apparent distress Head: atraumatic, normal appearance Eyes: Bilateral: normal appearance. Ears, Nose, Throat: normal pharynx, normal ENT inspection Neck: normal inspection, supple, full range of motion Respiratory: normal breath sounds, chest non-tender, no respiratory distress, quiet respiration, lungs clear Cardiovascular: regular rate/rhythm Back: normal inspection, normal range of motion Extremities: normal inspection, normal capillary refill, normal range of motion, no edema Neurologic/Psych: no motor/sensory deficits, awake, alert, oriented x 3 Skin: intact, normal color, warm/dry Core Measures ACS in differential dx? No Sepsis Present: No Sepsis Focused Exam Completed? No Progress Differential Diagnosis: constipation versus other Plan of Care: Orders Procedure Date/time Status Enema 02/24 358 Active Initial ED EKG: none Departure Departure Disposition: HOME OR SELF CARE Condition: Stable Clinical Impression Primary Impression: Constipation Referrals: Carmina Euceda MD (PCP/Family) Departure Forms: Customer Survey General Discharge Information Comments 02/24/18, 5:11am... pt is feeling better.... successful bowel movement with soap suds enema... pt safe for discharge. 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
[2018-02-24 05:49] VITALS: BP 146/74
== END 2018-02-24 05:50 ==
LOC: ERH 03:54
DX: K59.00 Constipation, unspecified (principal)

== ENCOUNTER 2018-05-14 09:17 | Emergency (ER) | payer OTHER ==
[~2018-05-14] VITALS: Ht 190.5 cm; Wt 108.9 kg
[~2018-05-14 09:17] MED LIST changes: +LEVSIN-SL0.125 MG SL
--- NOTE | 2018-05-14 09:24 | ED DYSPNEA/ASTHMA COMPLAINT ---
History of Present Illness General Chief Complaint: General Adult Stated Complaint: BIBA C/O SOB Source: patient, old records, EMS Exam Limitations: no limitations Vital Signs & Intake/Output Vital Signs & Intake/Output Vital Signs Date Time Temp Pulse Resp B/P B/P Pulse O2 O2 Flow FiO2 Mean Ox Delivery Rate 05/14 926 96 Room Air 05/14 925 97.5 76 18 157/70 96 Allergies Coded Allergies: aspirin (RELATED TO BEING ON WARFARIN 01/09/18) Reconcile Medications Acetaminophen (Tylenol) 325 MG TABLET 2 TAB PO Q6H PRN PAIN (Reported) Albuterol Sulfate (Proair Hfa) 8.5 GM HFA.AER.AD 1 PUF INH Q6H PRN SOB ( Reported) Atorvastatin Calcium (Lipitor) 80 MG TABLET 0.5 TAB PO QPM CHOLESTEROL ( Reported) Bisacodyl (Dulcolax) 5 MG TABLET.DR 2 TAB PO AD constipation Budesonide/Formoterol Fumarate (Symbicort 80-4.5 Mcg Inhaler) 10.2 GM HFA.AER.AD 2 PUF INH BID COPD (Reported) Citalopram Hydrobromide (Citalopram HBr) 40 MG TABLET 1 TAB PO DAILY Anxiety and depression Cyanocobalamin (Vitamin B-12) 1,000 MCG TABLET 1 TAB PO DAILY SUPPLEMENT ( Reported) Dabigatran Etexilate Mesylate (Pradaxa 150 MG) 150 MG CAPSULE 1 CAP PO BID BLOOD THINNER (Reported) Docusate Sodium 100 MG CAPSULE 1 CAP PO BID PRN STOOL SOFTENER (Reported) Fleet Enema (Fleet Pedia-Lax Enema) 9.5 GRAM-3.5 GRAM/59 ML ENEMA 1 UNIT [place] TID PRN CONSTIPATION Furosemide (Lasix) 20 MG TABLET 1 TAB PO QAM DIURETIC (Reported) Hyoscyamine Sulfate (Levsin-Sl) 0.125 MG TAB.SUBL 1-2 TAB SL Q4P PRN abdominal pain Metoprolol Tartrate (Lopressor) 50 MG TABLET 1.5 TAB PO BID BP (Reported) Mirtazapine 7.5 MG TABLET 7.5 MG PO AT BEDTIME depression/sleep Multivitamin (One Daily Multivitamin) 1 EACH TABLET 1 TAB PO DAILY vitamin supplement Naltrexone HCl 50 MG TABLET 1 TAB PO DAILY ETOH (Reported) Ondansetron (Zofran Odt) 4 MG TAB.RAPDIS 1 TAB SL TID PRN NAUSEA Ondansetron (Zofran Odt) 4 MG TAB.RAPDIS 1 TAB SL TID PRN nausea Peg 3350/Na Sulf,Bicarb,Cl/KCl (Golytely Solution) 236-22.74G SOLN.RECON 1 UNIT PO X1 PRN CONSTIPATION Polyethylene Glycol 3350 (Miralax) 17 GRAM/DOSE POWDER 17 GM PO BID PRN CONSTIPATION mix with water, juice, soda, coffee or tea Sildenafil Citrate (Viagra) 50 MG TABLET 1 TAB PO AD PRN ED (Reported) 1 hour before sexual activity Thiamine HCl (B-1) 100 MG TABLET 2 TAB PO DAILY SUPPLEMENT (Reported) Triage Nurses Notes Reviewed? yes HPI: Patient woke up this morning in his usual state of health. Patient then took his morning medications which include Symbicort and albuterol. As the morning wore on he found that he was having some difficulty breathing. Patient is to his inhalers 2 more times without any relief to call 911. Once in the ambulance he began to feel better and now states that he is back to his baseline. He denies any chest pain or chest heaviness. He states that he has a slight productive cough with white sputum which is chronic and has not changed in intensity. He denies any orthopnea. He states that his legs are chronically swollen but they are less so than normal. Past History Travel History Traveled to [place] past 21 day No Medical History Any Pertinent Medical History? 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 FATHER ([place], [place]). Hx Contributory? No Review of Systems Review of Systems Constitutional: Reports: no symptoms. EENTM: Reports: no symptoms. Respiratory: Reports: see HPI, cough, short of breath, sputum production (WHITE). Cardiovascular: Reports: no symptoms. GI: Reports: no symptoms. Genitourinary: Reports: no symptoms. Musculoskeletal: Reports: no symptoms. Skin: Reports: no symptoms. Neurological/Psychological: Reports: no symptoms. Hematologic/Endocrine: Reports: no symptoms. Immunologic/Allergic: Reports: no symptoms. All Other Systems: Reviewed and Negative Physical Exam Physical Exam General Appearance: well developed/nourished, alert, awake, anxious Head: atraumatic Eyes: Bilateral: PERRL, EOMI. Ears, Nose, Throat: normal pharynx, normal ENT inspection, hearing grossly normal Neck: normal inspection, supple, full range of motion, NO JVD Respiratory: normal breath sounds, chest non-tender, no respiratory distress, lungs clear, [place] [employer] [place] Cardiovascular: regular rate/rhythm, normal peripheral pulses Gastrointestinal: normal bowel sounds, soft, non-tender Extremities: normal capillary refill, normal range of motion, pedal edema Neurologic/Psych: no motor/sensory deficits, awake, alert, oriented x 3, normal gait, normal mood/affect Skin: intact, normal color, warm/dry Lymphatic: no anterior cervical rosmery Core Measures ACS in differential dx? No CVA/TIA Diagnosis No Sepsis Present: No Sepsis Focused Exam Completed? No Progress Differential Diagnosis: asthma, bronchitis, CHF, COPD, pneumonia, ANXIETY Plan of Care: Orders Procedure Date/time Status XRY-CHEST XRAY, TWO VIEWS 05/14 921 Active Diagnostic Imaging: Viewed by Me: Radiology Read. Discussed w/RAD: Radiology Read. CXR Impression: SEE BELOW Initial ED EKG: none Comments: PATIENT: GUNJAN JULIO PRESENT AGE: 78 PATIENT ACCOUNT NO: [id number] : 40 LOCATION: [facility] ORDERING PHYSICIAN: Johan Zamudio MD SERVICE DATE: 05/14/18 EXAM TYPE: RAD - XRY-CHEST XRAY, TWO VIEWS EXAMINATION: XR CHEST CLINICAL INFORMATION: Productive cough COMPARISON: 05/10/2018. TECHNIQUE: 2 views of the chest were obtained. FINDINGS: Cardiac and mediastinal silhouettes are normal in appearance. Mild right pleural thickening. No focal consolidation or atelectasis is seen. Mild thoracic kyphosis with osteophyte formation. IMPRESSION: No acute consolidation or atelectasis is seen. DICTATED BY: Austyn Alvares MD DATE/TIME DICTATED:05/14/18945 DIRECTOR OF LABORATORY OPERATIONS:BREEZY DATE/TIME TRANSCRIBED:05/14/18945 CONFIDENTIAL, DO NOT COPY WITHOUT APPROPRIATE AUTHORIZATION. <Electronically signed in Other Vendor System> SIGNED BY: Austyn Alvares MD 05/14/18950 Departure Departure Disposition: HOME OR SELF CARE Condition: Stable Clinical Impression Primary Impression: Dyspnea Referrals: Carmina Euceda MD (PCP/Family) Additional Instructions: Return for any concerns. Departure Forms: Customer Survey General Discharge Information Critical Care Note Critical Care Note Critical Care Time: non-applicable
--- NOTE | 2018-05-14 09:51 | RADIOLOGY REPORT ---
EXAMINATION: XR CHEST CLINICAL INFORMATION: Productive cough COMPARISON: 05/10/2018. TECHNIQUE: 2 views of the chest were obtained. FINDINGS: Cardiac and mediastinal silhouettes are normal in appearance. Mild right pleural thickening. No focal consolidation or atelectasis is seen. Mild thoracic kyphosis with osteophyte formation. IMPRESSION: No acute consolidation or atelectasis is seen.
[2018-05-14 11:00] VITALS: BP 142/76
[2018-05-17] MEDS ORDERED: SENNA8.6 M3 PO (07:12)
== END 2018-05-14 11:02 ==
LOC: ERH 09:17
DX: R06.00 Dyspnea, unspecified (principal); I48.91 Unspecified atrial fibrillation; Z87.891 Personal history of nicotine dependence; I10 Essential (primary) hypertension; E78.5 Hyperlipidemia, unspecified; F32.9 Major depressive disorder, single episode, unspecified; E11.9 Type 2 diabetes mellitus without complications
CPT/HCPCS: 1263; 71046

== ENCOUNTER 2018-05-14 15:04 | Emergency (ER) | payer OTHER ==
[~2018-05-14] VITALS: Ht 190.5 cm; Wt 108.9 kg
--- NOTE | 2018-05-14 15:43 | ED GENERAL ADULT ---
History of Present Illness General Chief Complaint: General Adult Stated Complaint: BIBA FOR DIZZINESS Source: patient, old records, EMS Exam Limitations: no limitations Vital Signs & Intake/Output Vital Signs & Intake/Output Vital Signs Date Time Temp Pulse Resp B/P B/P Pulse O2 O2 Flow FiO2 Mean Ox Delivery Rate 05/14 1826 97.1 88 18 158/74 97 Room Air 05/14 1549 98 Room Air 05/14 1507 98.3 90 18 170/85 98 Room Air Allergies Coded Allergies: aspirin (RELATED TO BEING ON WARFARIN 01/09/18) Reconcile Medications Acetaminophen (Tylenol) 325 MG TABLET 2 TAB PO Q6H PRN PAIN (Reported) Albuterol Sulfate (Proair Hfa) 8.5 GM HFA.AER.AD 1 PUF INH Q6H PRN SOB ( Reported) Atorvastatin Calcium (Lipitor) 80 MG TABLET 0.5 TAB PO QPM CHOLESTEROL ( Reported) Bisacodyl (Dulcolax) 5 MG TABLET.DR 2 TAB PO AD constipation Budesonide/Formoterol Fumarate (Symbicort 80-4.5 Mcg Inhaler) 10.2 GM HFA.AER.AD 2 PUF INH BID COPD (Reported) Citalopram Hydrobromide (Citalopram HBr) 40 MG TABLET 1 TAB PO DAILY Anxiety and depression Cyanocobalamin (Vitamin B-12) 1,000 MCG TABLET 1 TAB PO DAILY SUPPLEMENT ( Reported) Dabigatran Etexilate Mesylate (Pradaxa 150 MG) 150 MG CAPSULE 1 CAP PO BID BLOOD THINNER (Reported) Docusate Sodium 100 MG CAPSULE 1 CAP PO BID PRN STOOL SOFTENER (Reported) Fleet Enema (Fleet Pedia-Lax Enema) 9.5 GRAM-3.5 GRAM/59 ML ENEMA 1 UNIT [place] TID PRN CONSTIPATION Furosemide (Lasix) 20 MG TABLET 1 TAB PO QAM DIURETIC (Reported) Hyoscyamine Sulfate (Levsin-Sl) 0.125 MG TAB.SUBL 1-2 TAB SL Q4P PRN abdominal pain Metoprolol Tartrate (Lopressor) 50 MG TABLET 1.5 TAB PO BID BP (Reported) Mirtazapine 7.5 MG TABLET 7.5 MG PO AT BEDTIME depression/sleep Multivitamin (One Daily Multivitamin) 1 EACH TABLET 1 TAB PO DAILY vitamin supplement Naltrexone HCl 50 MG TABLET 1 TAB PO DAILY ETOH (Reported) Ondansetron (Zofran Odt) 4 MG TAB.RAPDIS 1 TAB SL TID PRN NAUSEA Ondansetron (Zofran Odt) 4 MG TAB.RAPDIS 1 TAB SL TID PRN nausea Peg 3350/Na Sulf,Bicarb,Cl/KCl (Golytely Solution) 236-22.74G SOLN.RECON 1 UNIT PO X1 PRN CONSTIPATION Polyethylene Glycol 3350 (Miralax) 17 GRAM/DOSE POWDER 17 GM PO BID PRN CONSTIPATION mix with water, juice, soda, coffee or tea Sildenafil Citrate (Viagra) 50 MG TABLET 1 TAB PO AD PRN ED (Reported) 1 hour before sexual activity Thiamine HCl (B-1) 100 MG TABLET 2 TAB PO DAILY SUPPLEMENT (Reported) Triage Note: 78 YO MALE BIBA TO TRIAGE FOR EVAL OF "NOT FEELING WELL" PT WAS D/C'D FROM [place] AROUND 11AM TODAY, STATES WHEN HE GOT HOME BE ATE 2 CHILLI DOGS AND WAS SITTING IN THE AIR CONDITIONER. STATES HE WENT OUTSIDE AND WALKED AROUND AND JUST WASNT FEELING HIMSELF. DENIES ANY PAIN. Triage Nurses Notes Reviewed? yes HPI: Patient was at home and the 2 chili dogs. Patient then attempted to lay down but it didn't feel right. He denies any chest pain or shortness of breath. He states that he felt nervous. Patient then went up and went to the community [place] at home out there for a little bit and then went to attempt to lay down again. Patient states he felt fine when he was at the [facility] when he got home alone and laid down again he felt nervous again. Patient still denies any chest pain or shortness of breath. Come back to the emergency department. In the ambulance he began to feel fine again. Currently the patient has no complaints. Past History Travel History Traveled to [place] past 21 day No Medical History Any Pertinent Medical History? 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 FATHER ([place], [place]). Hx Contributory? No Review of Systems Review of Systems Constitutional: Reports: no symptoms. Respiratory: Reports: no symptoms. Cardiovascular: Reports: no symptoms. GI: Reports: no symptoms. Musculoskeletal: Reports: no symptoms. Neurological/Psychological: Reports: see HPI, anxiety. Immunologic/Allergic: Reports: no symptoms. Physical Exam Physical Exam General Appearance: well developed/nourished, alert, awake, anxious Eyes: Bilateral: PERRL, EOMI. Neck: normal inspection, supple, full range of motion Respiratory: normal breath sounds, chest non-tender, no respiratory distress, lungs clear Cardiovascular: regular rate/rhythm, normal peripheral pulses Gastrointestinal: normal bowel sounds, soft, non-tender, no organomegaly Back: normal inspection, normal range of motion Extremities: normal capillary refill, normal range of motion, pedal edema Neurologic/Psych: no motor/sensory deficits, awake, alert, oriented x 3, normal gait, normal mood/affect Skin: intact, normal color, warm/dry Lymphatic: no anterior cervical rosmery Core Measures ACS in differential dx? No CVA/TIA Diagnosis: No Sepsis Present: No Sepsis Focused Exam Completed? No Progress Differential Diagnoses I considered the following diagnoses in my evaluation of the patient: [Anxiety] Plan of Care: Orders Procedure Date/time Status Regular Diet 05/15 B Active Observe an ER Initial ED EKG: none Departure Departure Disposition: HOME OR SELF CARE Condition: Stable Clinical Impression Primary Impression: Anxiety Referrals: Carmina Euceda MD (PCP/Family) Additional Instructions: Return for any concerns. Departure Forms: Customer Survey General Discharge Information Critical Care Note Critical Care Note Critical Care Time: non-applicable
[2018-05-14 18:26] VITALS: BP 158/74
[2018-05-17] MEDS ORDERED: SENNA8.6 M3 PO (07:12)
== END 2018-05-14 18:34 ==
LOC: ERH 15:04
DX: F41.9 Anxiety disorder, unspecified (principal); I48.91 Unspecified atrial fibrillation; I10 Essential (primary) hypertension; J45.909 Unspecified asthma, uncomplicated; E11.9 Type 2 diabetes mellitus without complications; Z79.01 Long term (current) use of anticoagulants

== ENCOUNTER 2018-05-23 09:16 | Emergency (ER) | payer OTHER ==
[~2018-05-23] VITALS: Ht 190.5 cm; Wt 108.9 kg
--- NOTE | 2018-05-23 10:04 | ED GENERAL ADULT ---
History of Present Illness General Chief Complaint: General Adult Stated Complaint: " I FEEL SICK " Source: patient Exam Limitations: no limitations Vital Signs & Intake/Output Vital Signs & Intake/Output Vital Signs Date Time Temp Pulse Resp B/P B/P Pulse O2 O2 Flow FiO2 Mean Ox Delivery Rate 05/23 0917 96.3 74 18 132/84 97 Room Air Room Air Allergies Coded Allergies: aspirin (RELATED TO BEING ON WARFARIN 05/20/18) Reconcile Medications Acetaminophen (Tylenol) 325 MG TABLET 2 TAB PO Q6H PRN PAIN (Reported) Albuterol Sulfate (Proair Hfa) 8.5 GM HFA.AER.AD 1 PUF INH Q6H PRN SOB ( Reported) Atorvastatin Calcium (Lipitor) 80 MG TABLET 0.5 TAB PO QPM CHOLESTEROL ( Reported) Bisacodyl (Dulcolax) 5 MG TABLET.DR 2 TAB PO AD constipation Budesonide/Formoterol Fumarate (Symbicort 80-4.5 Mcg Inhaler) 10.2 GM HFA.AER.AD 2 PUF INH BID COPD (Reported) Citalopram Hydrobromide (Citalopram HBr) 40 MG TABLET 1 TAB PO DAILY Anxiety and depression Cyanocobalamin (Vitamin B-12) 1,000 MCG TABLET 1 TAB PO DAILY SUPPLEMENT ( Reported) Dabigatran Etexilate Mesylate (Pradaxa 150 MG) 150 MG CAPSULE 1 CAP PO BID BLOOD THINNER (Reported) Docusate Sodium 100 MG CAPSULE 1 CAP PO BID PRN STOOL SOFTENER (Reported) Fleet Enema (Fleet Pedia-Lax Enema) 9.5 GRAM-3.5 GRAM/59 ML ENEMA 1 UNIT MD TID PRN CONSTIPATION Furosemide (Lasix) 20 MG TABLET 1 TAB PO QAM DIURETIC (Reported) Hyoscyamine Sulfate (Levsin-Sl) 0.125 MG TAB.SUBL 1 TAB SL Q4P PRN abdominal pain Metoprolol Tartrate (Lopressor) 50 MG TABLET 1.5 TAB PO BID BP (Reported) Mirtazapine 7.5 MG TABLET 7.5 MG PO AT BEDTIME depression/sleep Multivitamin (One Daily Multivitamin) 1 EACH TABLET 1 TAB PO DAILY vitamin supplement Naltrexone HCl 50 MG TABLET 1 TAB PO DAILY ETOH (Reported) Ondansetron (Zofran Odt) 4 MG TAB.RAPDIS 1 TAB SL TID PRN n/v Peg 3350/Na Sulf,Bicarb,Cl/KCl (Golytely Solution) 236-22.74G SOLN.RECON 1 UNIT PO X1 PRN CONSTIPATION Polyethylene Glycol 3350 (Miralax) 17 GRAM/DOSE POWDER 17 GM PO BID PRN CONSTIPATION mix with water, juice, soda, coffee or tea Sennosides (Senna) 8.6 MG TABLET 1 TAB PO DAILY PRN constipation Sildenafil Citrate (Viagra) 50 MG TABLET 1 TAB PO AD PRN ED (Reported) 1 hour before sexual activity Thiamine HCl (B-1) 100 MG TABLET 2 TAB PO DAILY SUPPLEMENT (Reported) Triage Note: PT TO ED, WAS SEEN YESTERDAY FOR CONSTIPATION, GIVEN [employer] "WORKED GOOD". RETURNS TODAY FOR "FEELING SICK ALL OVER". PT UNABLE TO DESCRIBE SYMPTOMS. AFEBRILE IN TRIAGE, "WOKE UP, TOOK A SHOWER AND JUST FEEL SICK ALL OVER". Triage Nurses Notes Reviewed? yes HPI: 78-year-old male comes in complaining of feeling sick all over. He denies fever , chills, chest pain, shortness of breath, exertional symptoms, abdominal pain. He reports some relief to his constipation. He denies any specific pain or focal pain. Denies any sore throat, fever, chills. Denies any cough or phlegm. Past History Travel History Traveled to [place] past 21 day No Medical History Any Pertinent Medical History? 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 FATHER ([place], [place]). Hx Contributory? No Review of Systems Review of Systems Constitutional: Reports: malaise. Denies: chills, diaphoresis, fever, weakness. EENTM: Denies: blurred vision, double vision, visual changes. Respiratory: Denies: cough, hemoptysis, orthopnea. Cardiovascular: Denies: chest pain, edema, orthopena. GI: Denies: abdominal pain, bloating, constipation. Genitourinary: Denies: discharge, dysuria. Musculoskeletal: Denies: back pain, gout. Skin: Denies: cysts, change in hair/nails. Neurological/Psychological: Denies: anxiety, ataxia. Physical Exam Physical Exam General Appearance: well developed/nourished, no apparent distress, alert, awake Head: atraumatic, normal appearance Eyes: Bilateral: PERRL, EOMI. Ears, Nose, Throat: normal pharynx, normal ENT inspection Neck: normal inspection, supple Respiratory: normal breath sounds, chest non-tender, no respiratory distress Cardiovascular: regular rate/rhythm Gastrointestinal: normal bowel sounds, soft, non-tender Back: normal inspection, normal range of motion Neurologic/Psych: no motor/sensory deficits, awake, alert, oriented x 3, normal gait Core Measures ACS in differential dx? No CVA/TIA Diagnosis: No Sepsis Present: No Sepsis Focused Exam Completed? No Progress Differential Diagnoses . Plan of Care: Orders Procedure Date/time Status COMPREHENSIVE METABOLIC PANEL 05/23 1001 Complete CBC WITHOUT DIFFERENTIAL 05/23 1001 Complete Laboratory Tests 05/23/18 1017: Anion Gap 6, Estimated GFR > 60, BUN/Creatinine Ratio 17.0, Glucose 150 H, Calcium 8.9, Total Bilirubin 1.0, AST 34, ALT 30, Alkaline Phosphatase 87, Total Protein 6.3, Albumin 3.6, Globulin 2.7, Albumin/Globulin Ratio 1.3, CBC w Diff NO MAN DIFF REQ, RBC 3.78 L, MCV 99.5 H, MCH 34.0 H, MCHC 34.2, RDW 12.6, MPV 7.9, Gran % 72.0, Lymphocytes % 15.4 L, Monocytes % 9.2, Eosinophils % 3.1, Basophils % 0.3, Absolute Granulocytes 3.5, Absolute Lymphocytes 0.7 L, Absolute Monocytes 0.4, Absolute Eosinophils 0.2, Absolute Basophils 0 Initial ED EKG: none Comments: 78-year-old male who is regularly in the emergency room comes in with very nonspecific complaints. We will check labs. Physical exam is very benign. Abdomen is soft and benign. No distress. No focal findings on physical exam. We will evaluate further with labs and observation. 1126 negative workup. The patient has no specific symptoms. No chest pain, shortness of breath, exertional symptoms. See walking around the ER comfortably. No signs of ACS, life-threatening cardiopulmonary pathology. Plan will be outpatient follow-up with PCP. Emergency room return warnings given. Departure Departure Time of Disposition: 112 Disposition: HOME OR SELF CARE Condition: Stable Clinical Impression Primary Impression: Malaise Referrals: Carmina Euceda MD (PCP/Family) Additional Instructions: Return for any new or concerning symptoms. Return for fever or pain. Departure Forms: Customer Survey General Discharge Information Critical Care Note Critical Care Note Critical Care Time: non-applicable
[2018-05-23 10:38] LABS: ABSOLUTE BASOPHIL COUNT 0 /CUMM (0.0-0.2); ABSOLUTE EOSINOPHIL COUNT 0.2 /CUMM (0.0-0.7); ABSOLUTE GRANULOCYTE CT 3.5 /CUMM (1.4-6.5); ABSOLUTE LYMPH COUNT 0.7 /CUMM (1.2-3.4); ABSOLUTE MONOCYTE COUNT 0.4 /CUMM (0.10-0.60); BASOPHIL % 0.3 % (0.0-2.0); EOSINOPHIL % 3.1 % (0-5); HEMATOCRIT 37.6 % (42-52); MEAN CORPUSCULAR HGB CONC 34.2 G/DL (33.0-37.0); MEAN CORPUSCULAR VOLUME 99.5 FL (80.0-94.0); MEAN PLATELET VOLUME 7.9 FL (7.4-10.4); PLATELET COUNT 157 /CUMM (130-400); RBC DISTRIBUTION WIDTH 12.6 % (11.5-14.5); RED BLOOD CELL CT 3.78 /CUMM (4.70-6.10); WHITE BLOOD CELL COUNT 4.8 /CUMM (4.8-10.8)
[2018-05-23 11:30] VITALS: BP 130/80
[2018-05-25] MEDS ORDERED: ROBITUSSIN COU237 M1 PO (06:46)
== END 2018-05-23 11:29 ==
LOC: ERH 09:16
PROVIDERS: Emergency Medicine
DX: R53.81 Other malaise (principal); R69 Illness, unspecified; I10 Essential (primary) hypertension; I48.91 Unspecified atrial fibrillation; E11.9 Type 2 diabetes mellitus without complications; Z79.01 Long term (current) use of anticoagulants

== ENCOUNTER 2018-05-23 18:36 | Emergency (ER) | payer OTHER ==
--- NOTE | 2018-05-23 19:35 | RADIOLOGY REPORT ---
EXAMINATION: XR CHEST CLINICAL INFORMATION: Shortness of breath. COMPARISON: 05/14/2018 TECHNIQUE: 2 views of the chest were obtained. FINDINGS: Heart size upper limits of normal. The aorta is unfolded. No infiltrates, effusions or lung masses are seen. Compared to the prior study there is a subtle increase in upper zone redistribution noted, especially on the left which could be indicative of some increase in underlying left ventricular end-diastolic pressure, indicating mild CHF. No effusions or Shorty B lines are seen. IMPRESSION: Question of mild upper zone redistribution which could represent some underlying mild CHF. Please correlate clinically.
[2018-05-23 19:53] LABS: ABSOLUTE BASOPHIL COUNT 0 /CUMM (0.0-0.2); ABSOLUTE EOSINOPHIL COUNT 0.2 /CUMM (0.0-0.7); ABSOLUTE GRANULOCYTE CT 3.4 /CUMM (1.4-6.5); ABSOLUTE MONOCYTE COUNT 0.6 /CUMM (0.10-0.60); BASOPHIL % 0.4 % (0.0-2.0); EOSINOPHIL % 2.9 % (0-5); GRANULOCYTE % 65.5 % (42.2-75.2); HEMATOCRIT 38.9 % (42-52); MEAN CORPUSCULAR HGB 33.7 PG (27.0-31.0); MEAN CORPUSCULAR HGB CONC 33.8 G/DL (33.0-37.0); MEAN CORPUSCULAR VOLUME 99.8 FL (80.0-94.0); MEAN PLATELET VOLUME 7.7 FL (7.4-10.4); PLATELET COUNT 157 /CUMM (130-400); WHITE BLOOD CELL COUNT 5.2 /CUMM (4.8-10.8)
[2018-05-23 21:00] VITALS: BP 140/72
--- NOTE | 2018-05-23 21:20 | ED DYSPNEA/ASTHMA COMPLAINT ---
History of Present Illness General Chief Complaint: General Adult Stated Complaint: BIBA FOR "TROUBLE BREATHING" PER PT Source: patient, old records, EMS Exam Limitations: no limitations Vital Signs & Intake/Output Vital Signs & Intake/Output Vital Signs Date Time Temp Pulse Resp B/P B/P Pulse O2 O2 Flow FiO2 Mean Ox Delivery Rate 05/23 2101 100 Room Air 05/23 2100 97.0 70 18 140/72 95 Room Air 05/23 1852 96.6 72 15 158/77 94 Room Air Room Air Allergies Coded Allergies: aspirin (RELATED TO BEING ON WARFARIN 05/23/18) Reconcile Medications Acetaminophen (Tylenol) 325 MG TABLET 2 TAB PO Q6H PRN PAIN (Reported) Albuterol Sulfate (Proair Hfa) 8.5 GM HFA.AER.AD 1 PUF INH Q6H PRN SOB ( Reported) Atorvastatin Calcium (Lipitor) 80 MG TABLET 0.5 TAB PO QPM CHOLESTEROL ( Reported) Bisacodyl (Dulcolax) 5 MG TABLET.DR 2 TAB PO AD constipation Budesonide/Formoterol Fumarate (Symbicort 80-4.5 Mcg Inhaler) 10.2 GM HFA.AER.AD 2 PUF INH BID COPD (Reported) Citalopram Hydrobromide (Citalopram HBr) 40 MG TABLET 1 TAB PO DAILY Anxiety and depression Cyanocobalamin (Vitamin B-12) 1,000 MCG TABLET 1 TAB PO DAILY SUPPLEMENT ( Reported) Dabigatran Etexilate Mesylate (Pradaxa 150 MG) 150 MG CAPSULE 1 CAP PO BID BLOOD THINNER (Reported) Docusate Sodium 100 MG CAPSULE 1 CAP PO BID PRN STOOL SOFTENER (Reported) Fleet Enema (Fleet Pedia-Lax Enema) 9.5 GRAM-3.5 GRAM/59 ML ENEMA 1 UNIT TN TID PRN CONSTIPATION Furosemide (Lasix) 20 MG TABLET 1 TAB PO QAM DIURETIC (Reported) Hyoscyamine Sulfate (Levsin-Sl) 0.125 MG TAB.SUBL 1 TAB SL Q4P PRN abdominal pain Metoprolol Tartrate (Lopressor) 50 MG TABLET 1.5 TAB PO BID BP (Reported) Mirtazapine 7.5 MG TABLET 7.5 MG PO AT BEDTIME depression/sleep Multivitamin (One Daily Multivitamin) 1 EACH TABLET 1 TAB PO DAILY vitamin supplement Naltrexone HCl 50 MG TABLET 1 TAB PO DAILY ETOH (Reported) Ondansetron (Zofran Odt) 4 MG TAB.RAPDIS 1 TAB SL TID PRN n/v Peg 3350/Na Sulf,Bicarb,Cl/KCl (Golytely Solution) 236-22.74G SOLN.RECON 1 UNIT PO X1 PRN CONSTIPATION Polyethylene Glycol 3350 (Miralax) 17 GRAM/DOSE POWDER 17 GM PO BID PRN CONSTIPATION mix with water, juice, soda, coffee or tea Sennosides (Senna) 8.6 MG TABLET 1 TAB PO DAILY PRN constipation Sildenafil Citrate (Viagra) 50 MG TABLET 1 TAB PO AD PRN ED (Reported) 1 hour before sexual activity Thiamine HCl (B-1) 100 MG TABLET 2 TAB PO DAILY SUPPLEMENT (Reported) Core Measure Meds Pre-Hospital pradaxa Triage Note: PT BIBA FOR DIFFICUTLY BREATHING. NO ACUTE DISTRESS NOTED IN TRIAGE. O2 SAT WNL. Triage Nurses Notes Reviewed? yes Onset: Just prior to arrival Duration: minute(s):, constant, continues in ED Timing: recent history Severity: mild Activities at Onset: rest Prior Episodes/Possible Cause: occasional episodes Associated Symptoms: anxiety, cough HPI: Several hours prior to admission patient complains of shortness of breath at rest. Denies dyspnea on exertion chest pain cough nausea vomiting diarrhea abdominal pain headache dysuria rash bleeding. Past History Travel History Traveled to [place] past 21 day No Medical History Any Pertinent Medical History? 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 FATHER ([place], [place]). Hx Contributory? No Review of Systems Review of Systems Constitutional: Reports: no symptoms. EENTM: Reports: no symptoms. Respiratory: Reports: see HPI, short of breath, sputum production. Cardiovascular: Reports: no symptoms. GI: Reports: no symptoms. Genitourinary: Reports: no symptoms. Musculoskeletal: Reports: no symptoms. Skin: Reports: no symptoms. Neurological/Psychological: Reports: no symptoms. Hematologic/Endocrine: Reports: no symptoms. Immunologic/Allergic: Reports: no symptoms. All Other Systems: Reviewed and Negative Physical Exam Physical Exam General Appearance: well developed/nourished, alert, awake, anxious, comfortable , obese Head: atraumatic, normal appearance Eyes: Bilateral: normal appearance, PERRL, EOMI. Ears, Nose, Throat: normal pharynx, normal ENT inspection, hearing grossly normal Neck: normal inspection, supple, full range of motion, no midline tenderness Respiratory: normal breath sounds, chest non-tender, no respiratory distress, quiet respiration, lungs clear Cardiovascular: normal peripheral pulses, irregularly irregular, norml femoral pulses equa Peripheral Pulses: 4+ carotid (R), 4+ carotid (L) Gastrointestinal: normal bowel sounds, soft, non-tender, no organomegaly Extremities: normal capillary refill, normal range of motion, pedal edema Neurologic/Psych: no motor/sensory deficits, awake, alert, oriented x 3, normal gait, 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 Yes No ASA d/t Pharmacological CI CVA/TIA Diagnosis No Sepsis Present: No Sepsis Focused Exam Completed? No Progress Differential Diagnosis: asthma, bronchitis, CHF, COPD, pneumonia Plan of Care: Orders Procedure Date/time Status TROPONIN LEVEL 05/23 1853 Complete COMPREHENSIVE METABOLIC PANEL 05/23 1853 Complete CBC WITHOUT DIFFERENTIAL 05/23 1853 Complete EKG 05/23 1853 Active Laboratory Tests 05/23/18 1932: Anion Gap 6, Estimated GFR > 60, BUN/Creatinine Ratio 16.4, Glucose 116 H, Calcium 8.8, Total Bilirubin 1.0, AST 30, ALT 35, Alkaline Phosphatase 81, Troponin I < 0.01, Total Protein 6.8, Albumin 3.8, Globulin 3.0, Albumin/ Globulin Ratio 1.3, CBC w Diff NO MAN DIFF REQ, RBC 3.90 L, MCV 99.8 H, MCH 33.7 H, MCHC 33.8, RDW 13.0, MPV 7.7, Gran % 65.5, Lymphocytes % 19.2 L, Monocytes % 12.0 H, Eosinophils % 2.9, Basophils % 0.4, Absolute Granulocytes 3.4, Absolute Lymphocytes 1.0 L, Absolute Monocytes 0.6, Absolute Eosinophils 0.2, Absolute Basophils 0 Diagnostic Imaging: Viewed by Me: Radiology Read. Discussed w/RAD: Radiology Read. CXR Impression: Question of mild upper zone redistribution which could represent some underlying mild CHF. Please correlate clinically. Initial ED EKG: AFIB, no ST T wave changes Prior EKG: unchanged Departure Departure Time of Disposition: 2120 Disposition: HOME OR SELF CARE Condition: Stable Clinical Impression Primary Impression: Congestive heart failure Secondary Impressions: Atrial fibrillation Referrals: Carmina Euceda MD (PCP/Family) Additional Instructions: Take 2 tabs of Lasix / furosemide in the morning for the next 3 days Departure Forms: Customer Survey General Discharge Information Critical Care Note Critical Care Note Critical Care Time: non-applicable
[2018-05-25] MEDS ORDERED: ROBITUSSIN COU237 M1 PO (06:46)
== END 2018-05-23 21:40 ==
LOC: ERH 18:36
PROVIDERS: Physician Assistant Medical
DX: I48.91 Unspecified atrial fibrillation (principal); I50.9 Heart failure, unspecified; I10 Essential (primary) hypertension; E78.5 Hyperlipidemia, unspecified; F32.9 Major depressive disorder, single episode, unspecified; J45.909 Unspecified asthma, uncomplicated
CPT/HCPCS: 71046; 93005; 93010

== ENCOUNTER 2018-05-25 16:56 | Emergency (ER) | payer OTHER ==
[~2018-05-25 16:56] MED LIST changes: +ROBITUSSIN COU237 M1 PO
[2018-05-25 17:07] VITALS: BP 168/80
--- NOTE | 2018-05-25 17:22 | ED DYSPNEA/ASTHMA COMPLAINT ---
History of Present Illness General Chief Complaint: Dyspnea (COPD, CHF, Other) Stated Complaint: PT IS HAVING A PROBLEM BREATHING Source: patient, old records Exam Limitations: no limitations Vital Signs & Intake/Output Vital Signs & Intake/Output Vital Signs Date Time Temp Pulse Resp B/P B/P Pulse O2 O2 Flow FiO2 Mean Ox Delivery Rate 05/25 1747 97 05/25 1709 97 Room Air 05/25 1707 97.8 71 18 168/80 97 Room Air Allergies Coded Allergies: aspirin (RELATED TO BEING ON WARFARIN 05/23/18) Triage Note: 78M RETURNS TO ED FOR CONTINUED SUBJECTIVE REPORT OF DIFF BREATHING. NO RESP DISTRESS OBSERVED, NO RUBIO. O2 SAT 97% RA. COLORING APPROPRIATE. PT WAS DISCHARGED THIS MORNING, BUT STAYED FOR BREAKFAST AND WHILE WAITING FOR IT, CANCELLED HIS APPT WITH PMD AT THE [facility] 3 HOURS PRIOR "BECAUSE HE DIDN'T FEEL RIGHT." EDUCATED ON RESOURCES AVAILABLE AND TEST RESULTS AND THE IMPORTANCE OF FOLLOWING UP WITH PMD FOR MANAGEMENT OF HEALTH, WELLNESS, AND MEDICATION ADJUSTMENTS. Triage Nurses Notes Reviewed? yes Onset: Gradual Duration: hour(s): Timing: multiple episodes today Severity: moderate HPI: 78-year-old male with history of A. fib, hypertension, diabetes, asthma presents to emergency department complaining of "breathing problems" occurring while he was at home just prior to arrival. Patient is well-known to the emergency department, this is his second visit here today for the same complaint. Patient had x-ray imaging obtained earlier today which was normal. He had a breathing treatment here, states he felt improvement prior to discharge. He returns for dyspnea occurring when he got home. Patient tried using his Proair without relief of his symptoms. Patient denies chest pain, abdominal pain, fevers, chills, malaise, hemoptysis. (Yolanda BLOOM,Chandni Estrella) Reconcile Medications Acetaminophen (Tylenol) 325 MG TABLET 2 TAB PO Q6H PRN PAIN (Reported) Albuterol Sulfate (Proair Hfa) 8.5 GM HFA.AER.AD 1 PUF INH Q6H PRN SOB ( Reported) Albuterol Sulfate (Proventil Hfa) 90 MCG HFA.AER.AD 2 PUF INH Q4 PRN COUGH, WHEEZE Amoxicillin/Potassium Clav (Augmentin 875-125 Tablet) 875 MG-125 MG TABLET 1 TAB PO BID bronchitis Atorvastatin Calcium (Lipitor) 80 MG TABLET 0.5 TAB PO QPM CHOLESTEROL ( Reported) Bisacodyl (Dulcolax) 5 MG TABLET.DR 2 TAB PO AD constipation Budesonide/Formoterol Fumarate (Symbicort 80-4.5 Mcg Inhaler) 10.2 GM HFA.AER.AD 2 PUF INH BID COPD (Reported) Citalopram Hydrobromide (Citalopram HBr) 40 MG TABLET 1 TAB PO DAILY Anxiety and depression Cyanocobalamin (Vitamin B-12) 1,000 MCG TABLET 1 TAB PO DAILY SUPPLEMENT ( Reported) Dabigatran Etexilate Mesylate (Pradaxa 150 MG) 150 MG CAPSULE 1 CAP PO BID BLOOD THINNER (Reported) Docusate Sodium 100 MG CAPSULE 1 CAP PO BID PRN STOOL SOFTENER (Reported) Fleet Enema (Fleet Pedia-Lax Enema) 9.5 GRAM-3.5 GRAM/59 ML ENEMA 1 UNIT IN TID PRN CONSTIPATION Furosemide (Lasix) 20 MG TABLET 1 TAB PO QAM DIURETIC (Reported) Guaifenesin/Dextromethorphan (Robitussin Cough-Chest Dm Liq) 100 MG-5 MG/5 ML LIQUID 10 ML PO Q6H PRN cough Hyoscyamine Sulfate (Levsin-Sl) 0.125 MG TAB.SUBL 1 TAB SL Q4P PRN abdominal pain Metoprolol Tartrate (Lopressor) 50 MG TABLET 1.5 TAB PO BID BP (Reported) Mirtazapine 7.5 MG TABLET 7.5 MG PO AT BEDTIME depression/sleep Multivitamin (One Daily Multivitamin) 1 EACH TABLET 1 TAB PO DAILY vitamin supplement Naltrexone HCl 50 MG TABLET 1 TAB PO DAILY ETOH (Reported) Ondansetron (Zofran Odt) 4 MG TAB.RAPDIS 1 TAB SL TID PRN n/v Peg 3350/Na Sulf,Bicarb,Cl/KCl (Golytely Solution) 236-22.74G SOLN.RECON 1 UNIT PO X1 PRN CONSTIPATION Polyethylene Glycol 3350 (Miralax) 17 GRAM/DOSE POWDER 17 GM PO BID PRN CONSTIPATION mix with water, juice, soda, coffee or tea Prednisolone 15 MG/5 ML SOLUTION 10 ML PO QDAY bronchitis Sennosides (Senna) 8.6 MG TABLET 1 TAB PO DAILY PRN constipation Sildenafil Citrate (Viagra) 50 MG TABLET 1 TAB PO AD PRN ED (Reported) 1 hour before sexual activity Thiamine HCl (B-1) 100 MG TABLET 2 TAB PO DAILY SUPPLEMENT (Reported) (Aicha SHERWOOD,[facility]) Past History Travel History Traveled to [place] past 21 day No Medical History Any Pertinent Medical History? 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 FATHER ([place], [place]). Hx Contributory? No (Chandni Burroughs) Review of Systems Review of Systems Constitutional: Reports: no symptoms. EENTM: Reports: no symptoms. Respiratory: Reports: see HPI. Cardiovascular: Reports: no symptoms. GI: Reports: no symptoms. Genitourinary: Reports: no symptoms. Musculoskeletal: Reports: no symptoms. Skin: Reports: no symptoms. Neurological/Psychological: Reports: no symptoms. Hematologic/Endocrine: Reports: no symptoms. Immunologic/Allergic: Reports: no symptoms. All Other Systems: Reviewed and Negative (Chandni Burroughs) Physical Exam Physical Exam General Appearance: well developed/nourished, no apparent distress, alert, awake Head: atraumatic, normal appearance Eyes: Bilateral: normal appearance. Ears, Nose, Throat: hearing grossly normal Neck: normal inspection, supple, full range of motion Respiratory: normal breath sounds, no respiratory distress, lungs clear Cardiovascular: irregularly irregular Gastrointestinal: soft, non-tender Extremities: normal inspection, normal range of motion Neurologic/Psych: awake, alert, oriented x 3 Skin: intact, normal color, warm/dry Core Measures ACS in differential dx? No CVA/TIA Diagnosis No Sepsis Present: No Sepsis Focused Exam Completed? No (Chandni Burroughs) Progress Differential Diagnosis: asthma, bronchitis, COPD, pneumonia Plan of Care: Orders Procedure Date/time Status EKG 05/25 1721 Active Chest x-ray which was obtained earlier today was reviewed and within normal limits. This patient comes to the emergency Department almost every day, he is in no acute distress, he appears well and nontoxic appearing. Vital signs are stable, he is not hypoxic. EKG is stable compared to his baseline. Patient reports improvement following DuoNeb, he feels ready to go home at this time. He has had no chest pain, low suspicion for acute cardiac pathology. Patient agrees with the plan of care. The patient was seen and evaluated by Dr. Holcomb who agrees with the plan of care. Initial ED EKG: ATRIAL FIBRILLATION RATE 62BPM, NONSPECIFIC ST CHANGES Prior EKG: unchanged (05/23/18) (Chandni Burroughs) Departure Departure Disposition: HOME OR SELF CARE Condition: Stable Clinical Impression Primary Impression: Dyspnea Qualifiers: Dyspnea type: unspecified Qualified Code: R06.00 - Dyspnea, unspecified Referrals: Carmina Euceda MD (PCP/Family) Additional Instructions: Continue your inhalers. Follow up with your primary care doctor. Return with worsening symptoms or concerns. Please note that there might be incidental findings in your evaluation that are unrelated to the current emergency department visit. Please notify your primary care doctor about this emergency department visit in order to obtain and review all of the testing performed so that these incidental findings can be monitored as needed. If you had an x-ray performed, please understand that some fractures may not be seen on the initial set of x-rays. If your symptoms persist you might need a repeat set of x-rays to check for such a fracture. If you had a laceration evaluated, please understand that foreign bodies such as glass or wood may not be visible to the naked eye or on plain x-rays. If the wound becomes red, swollen, increasingly more painful or if there is any drainage from the wound, please have it reevaluated by a physician for the possibility of a retained foreign body. If you're unable to follow up as outlined in the discharge instructions please return to the emergency department. Thank you for choosing the [facility] Emergency Department for your care. It was a pleasure to serve you today. Departure Forms: Customer Survey General Discharge Information (Chandni Burroughs) PA/GEOPHYSICAL DATA TECHNICIAN Co-Sign Statement Statement: ED Attending supervision documentation- [x] I saw and evaluated the patient. I have also reviewed all the pertinent lab results and diagnostic results. I agree with the findings and the plan of care as documented in the PA's/GEOPHYSICAL DATA TECHNICIAN's documentation. [] I have reviewed the ED Record and agree with the PA's/GEOPHYSICAL DATA TECHNICIAN's documentation. [] Additions or exceptions (if any) to the PAs/GEOPHYSICAL DATA TECHNICIAN's note and plan are summarized below: [] (Aicha SHERWOOD,[facility]) Critical Care Note Critical Care Note Critical Care Time: non-applicable (Yolanda BLOOM,Chandni Estrella)
[2018-05-30] MEDS ORDERED: AUGMENTIN 875-1 EACH PO ×2 (00:12→01:25)
[2018-05-30] MEDS ORDERED: PREDNISOLO15 MG/5 M4 PO ×2 (00:12→01:25)
[2018-05-30] MEDS ORDERED: PROVENTIL HFA6.7 GM INH (01:25)
== END 2018-05-25 18:23 ==
LOC: ERH 16:56
DX: R06.00 Dyspnea, unspecified (principal); I48.91 Unspecified atrial fibrillation; I10 Essential (primary) hypertension; E78.5 Hyperlipidemia, unspecified; J45.909 Unspecified asthma, uncomplicated; F32.9 Major depressive disorder, single episode, unspecified; E11.9 Type 2 diabetes mellitus without complications
CPT/HCPCS: 1263; 93005; 93010

== ENCOUNTER 2018-06-04 13:32 | Emergency (ER) | payer OTHER ==
[~2018-06-04] VITALS: Ht 190.5 cm; Wt 111.1 kg
[~2018-06-04 13:32] MED LIST changes: +PREDNISOLO15 MG/5 M4 PO
[2018-06-04 13:59] VITALS: BP 106/70
--- NOTE | 2018-06-04 14:47 | RADIOLOGY REPORT ---
EXAMINATION: XR CHEST CLINICAL INFORMATION: Short of breath COMPARISON: 05/25/2018 TECHNIQUE: 2 views of the chest were obtained. FINDINGS: Frontal and lateral views of the chest were obtained. The lungs are symmetrically expanded and clear. No pulmonary edema is seen. Cardiac mediastinal silhouette and contours are normal. There is no pleural effusion or pneumothorax. Osseous structures demonstrate degenerative changes, no acute osseous abnormality is present. There has been no interval change. IMPRESSION: No acute cardiopulmonary abnormality.
--- NOTE | 2018-06-04 15:56 | ED DYSPNEA/ASTHMA COMPLAINT ---
History of Present Illness General Chief Complaint: Dyspnea (COPD, CHF, Other) Stated Complaint: "I FEEL LIKE I'M HAVING TROUBLE BREATHING." Source: patient Exam Limitations: no limitations Vital Signs & Intake/Output Vital Signs & Intake/Output Vital Signs Date Time Temp Pulse Resp B/P B/P Pulse O2 O2 Flow FiO2 Mean Ox Delivery Rate 06/04 1359 96.1 74 22 106/70 98 Room Air Allergies Coded Allergies: aspirin (RELATED TO BEING ON WARFARIN 05/23/18) Reconcile Medications Acetaminophen (Tylenol) 325 MG TABLET 2 TAB PO Q6H PRN PAIN (Reported) Albuterol Sulfate (Proair Hfa) 8.5 GM HFA.AER.AD 1 PUF INH Q6H PRN SOB ( Reported) Albuterol Sulfate (Proventil Hfa) 90 MCG HFA.AER.AD 2 PUF INH Q4 PRN COUGH, WHEEZE Amoxicillin/Potassium Clav (Augmentin 875-125 Tablet) 875 MG-125 MG TABLET 1 TAB PO BID bronchitis Atorvastatin Calcium (Lipitor) 80 MG TABLET 0.5 TAB PO QPM CHOLESTEROL ( Reported) Bisacodyl (Dulcolax) 5 MG TABLET.DR 2 TAB PO AD constipation Budesonide/Formoterol Fumarate (Symbicort 80-4.5 Mcg Inhaler) 10.2 GM HFA.AER.AD 2 PUF INH BID COPD (Reported) Citalopram Hydrobromide (Citalopram HBr) 40 MG TABLET 1 TAB PO DAILY Anxiety and depression Cyanocobalamin (Vitamin B-12) 1,000 MCG TABLET 1 TAB PO DAILY SUPPLEMENT ( Reported) Dabigatran Etexilate Mesylate (Pradaxa 150 MG) 150 MG CAPSULE 1 CAP PO BID BLOOD THINNER (Reported) Docusate Sodium 100 MG CAPSULE 1 CAP PO BID PRN STOOL SOFTENER (Reported) Fleet Enema (Fleet Pedia-Lax Enema) 9.5 GRAM-3.5 GRAM/59 ML ENEMA [address] TID PRN CONSTIPATION Furosemide (Lasix) 20 MG TABLET 1 TAB PO QAM DIURETIC (Reported) Guaifenesin/Dextromethorphan (Robitussin Cough-Chest Dm Liq) 100 MG-5 MG/5 ML LIQUID 10 ML PO Q6H PRN cough Hyoscyamine Sulfate (Levsin-Sl) 0.125 MG TAB.SUBL 1 TAB SL Q4P PRN abdominal pain Metoprolol Tartrate (Lopressor) 50 MG TABLET 1.5 TAB PO BID BP (Reported) Mirtazapine 7.5 MG TABLET 7.5 MG PO AT BEDTIME depression/sleep Multivitamin (One Daily Multivitamin) 1 EACH TABLET 1 TAB PO DAILY vitamin supplement Naltrexone HCl 50 MG TABLET 1 TAB PO DAILY ETOH (Reported) Ondansetron (Zofran Odt) 4 MG TAB.RAPDIS 1 TAB SL TID PRN n/v Peg 3350/Na Sulf,Bicarb,Cl/KCl (Golytely Solution) 236-22.74G SOLN.RECON 1 UNIT PO X1 PRN CONSTIPATION Polyethylene Glycol 3350 (Miralax) 17 GRAM/DOSE POWDER 17 GM PO BID PRN CONSTIPATION mix with water, juice, soda, coffee or tea Prednisolone 15 MG/5 ML SOLUTION 10 ML PO QDAY bronchitis Sennosides (Senna) 8.6 MG TABLET 1 TAB PO DAILY PRN constipation Sildenafil Citrate (Viagra) 50 MG TABLET 1 TAB PO AD PRN ED (Reported) 1 hour before sexual activity Thiamine HCl (B-1) 100 MG TABLET 2 TAB PO DAILY SUPPLEMENT (Reported) Triage Note: C/O SOB X 2 HOURS, SEEN HERE LAST PM FOR SAME SXS. DENIES CHEST PAIN. STATES SOB IS WORSE WHEN LAYING DOWN. Triage Nurses Notes Reviewed? yes HPI: 78-year-old male history of atrial fibrillation hypertension severe anxiety and asthma presents for evaluation of shortness of breath. Patient has been evaluated multiple times in the last few days for this. Patient is a frequent flyer here. He reports that the shortness of breath started about 2 hours ago and has been intermittent. He has not tried any inhalers at home. Denies chest pain or hemoptysis. The shortness of breath is intermittent. No lower extremity edema. He has had similar symptoms multiple times (David Suarez) Past History Travel History Traveled to [place] past 21 day No Medical History Any Pertinent Medical History? 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 FATHER (cad, [place]). Hx Contributory? No (David Suarez) Review of Systems Review of Systems Constitutional: Reports: no symptoms. EENTM: Reports: no symptoms. Respiratory: Reports: see HPI, short of breath. Cardiovascular: Reports: no symptoms. GI: Reports: no symptoms. Genitourinary: Reports: no symptoms. Musculoskeletal: Reports: no symptoms. Skin: Reports: no symptoms. Neurological/Psychological: Reports: no symptoms. Hematologic/Endocrine: Reports: no symptoms. Immunologic/Allergic: Reports: no symptoms. All Other Systems: Reviewed and Negative (David Suarez) Physical Exam Physical Exam General Appearance: well developed/nourished, no apparent distress, alert, awake , comfortable Head: atraumatic, normal appearance Eyes: Bilateral: normal appearance, PERRL, EOMI. Ears, Nose, Throat: hearing grossly normal Neck: normal inspection, supple, full range of motion Respiratory: normal breath sounds, chest non-tender, no respiratory distress, lungs clear Cardiovascular: regular rate/rhythm Gastrointestinal: soft, non-tender Extremities: normal inspection, normal range of motion, no edema Neurologic/Psych: no motor/sensory deficits, awake, alert, oriented x 3, normal gait, normal mood/affect Skin: intact, normal color, warm/dry Core Measures ACS in differential dx? No CVA/TIA Diagnosis No Sepsis Present: No Sepsis Focused Exam Completed? No (David Suarez) Progress Differential Diagnosis: asthma, AMI, bronchitis, CHF, COPD, pulmonary embolism, pneumonia, unstable angina Plan of Care: Orders Procedure Date/time Status EKG 06/04 1359 Active Laboratory Tests 06/04/18 1359: Troponin I Cancelled, CBC w Diff Cancelled, WBC Cancelled, RBC Cancelled, Hgb Cancelled, Hct Cancelled, MCV Cancelled, MCH Cancelled, MCHC Cancelled, RDW Cancelled, Plt Count Cancelled, MPV Cancelled Patient is here for evaluation of shortness of breath. Has been seen here multiple times the past few days. His vital signs are stable his lung sounds are clear. Chest x-ray is negative EKG is unchanged. Patient was given a DuoNeb and is feeling better. Will be discharged with instructions to continue using nebulizers and inhalers at home. Follow-up with the primary care doctor discussed return precautions Case discussed with Dr. Limon he agrees Diagnostic Imaging: Viewed by Me: Radiology Read. Discussed w/RAD: Radiology Read. CXR Impression: PATIENT: GUNJAN JULIO SR PRESENT AGE: 78 PATIENT ACCOUNT NO: [id number] : 40 LOCATION: [facility] ORDERING PHYSICIAN: David BLOOM SERVICE DATE: 06/04/18 EXAM TYPE: RAD - XRY-CHEST XRAY, TWO VIEWS EXAMINATION: XR CHEST CLINICAL INFORMATION: Short of breath COMPARISON: 05/25/2018 TECHNIQUE: 2 views of the chest were obtained. FINDINGS: Frontal and lateral views of the chest were obtained. The lungs are symmetrically expanded and clear. No pulmonary edema is seen. Cardiac mediastinal silhouette and contours are normal. There is no pleural effusion or pneumothorax. Osseous structures demonstrate degenerative changes, no acute osseous abnormality is present. There has been no interval change. IMPRESSION: No acute cardiopulmonary abnormality. 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 < Electronically signed in Other Vendor System> SIGNED BY: Sandra Miranda MD 06/04/188 Initial ED EKG: AFIB (rate contropled), no ST T wave changes (David Suarez) Departure Departure Disposition: HOME OR SELF CARE Condition: Stable Clinical Impression Primary Impression: Asthma exacerbation Qualifiers: Asthma severity: mild Asthma persistence: intermittent Qualified Code: J45.21 - Mild intermittent asthma with (acute) exacerbation Referrals: Carmina Euceda MD (PCP/Family) Additional Instructions: Continue to use YOUr ALBUTEROL inhaler at home 2 puffs every 4-6 hours as needed. Make a follow-up with your doctor. Monitor your symptoms return with any concerns. Departure Forms: Customer Survey General Discharge Information (David Suarez) PA/CDL B DRIVER Co-Sign Statement Statement: ED Attending supervision documentation- [X] I saw and evaluated the patient. I have also reviewed all the pertinent lab results and diagnostic results. I agree with the findings and the plan of care as documented in the PA's/CDL B DRIVER's documentation. Patient presents for evaluation of shortness of breath. Physical examination reveals a conversant gentleman in no acute respiratory distress. Lungs are clear bilaterally. [] I have reviewed the ED Record and agree with the PA's/CDL B DRIVER's documentation. [] Additions or exceptions (if any) to the PAs/CDL B DRIVER's note and plan are summarized below: [] (Ashly SHERWOOD,Ted Ruiz) Critical Care Note Critical Care Note Critical Care Time: non-applicable (David Suarez)
== END 2018-06-04 16:30 ==
LOC: ERH 13:32
DX: J45.901 Unspecified asthma with (acute) exacerbation (principal); I48.91 Unspecified atrial fibrillation; I10 Essential (primary) hypertension; E78.5 Hyperlipidemia, unspecified; F32.9 Major depressive disorder, single episode, unspecified; E11.9 Type 2 diabetes mellitus without complications; Z87.891 Personal history of nicotine dependence
CPT/HCPCS: 1263; 71046; 93005; 93010

== ENCOUNTER 2018-06-07 09:57 | Emergency (ER) | payer OTHER ==
[~2018-06-07] VITALS: Ht 190.5 cm; Wt 104.3 kg
--- NOTE | 2018-06-07 10:30 | ED GENERAL ADULT ---
History of Present Illness General Chief Complaint: General Adult Stated Complaint: "WHOLE BODY DOESN'T FEEL GOOD" Source: patient, old records Exam Limitations: no limitations Vital Signs & Intake/Output Vital Signs & Intake/Output Vital Signs Date Time Temp Pulse Resp B/P B/P Pulse O2 O2 Flow FiO2 Mean Ox Delivery Rate 06/07 1308 98.8 56 18 133/68 99 06/07 1046 96 Room Air 06/07 1005 96.9 80 18 88/61 96 Room Air Allergies Coded Allergies: aspirin (RELATED TO BEING ON WARFARIN 05/23/18) Reconcile Medications Acetaminophen (Tylenol) 325 MG TABLET 2 TAB PO Q6H PRN PAIN (Reported) Albuterol Sulfate (Proair Hfa) 8.5 GM HFA.AER.AD 1 PUF INH Q6H PRN SOB ( Reported) Albuterol Sulfate (Proventil Hfa) 90 MCG HFA.AER.AD 2 PUF INH Q4 PRN COUGH, WHEEZE Amoxicillin/Potassium Clav (Augmentin 875-125 Tablet) 875 MG-125 MG TABLET 1 TAB PO BID bronchitis Atorvastatin Calcium (Lipitor) 80 MG TABLET 0.5 TAB PO QPM CHOLESTEROL ( Reported) Bisacodyl (Dulcolax) 5 MG TABLET.DR 2 TAB PO AD constipation Budesonide/Formoterol Fumarate (Symbicort 80-4.5 Mcg Inhaler) 10.2 GM HFA.AER.AD 2 PUF INH BID COPD (Reported) Citalopram Hydrobromide (Citalopram HBr) 40 MG TABLET 1 TAB PO DAILY Anxiety and depression Cyanocobalamin (Vitamin B-12) 1,000 MCG TABLET 1 TAB PO DAILY SUPPLEMENT ( Reported) Dabigatran Etexilate Mesylate (Pradaxa 150 MG) 150 MG CAPSULE 1 CAP PO BID BLOOD THINNER (Reported) Docusate Sodium 100 MG CAPSULE 1 CAP PO BID PRN STOOL SOFTENER (Reported) Fleet Enema (Fleet Pedia-Lax Enema) 9.5 GRAM-3.5 GRAM/59 ML ENEMA 1 UNIT [place] TID PRN CONSTIPATION Furosemide (Lasix) 20 MG TABLET 1 TAB PO QAM DIURETIC (Reported) Guaifenesin/Dextromethorphan (Robitussin Cough-Chest Dm Liq) 100 MG-5 MG/5 ML LIQUID 10 ML PO Q6H PRN cough Hyoscyamine Sulfate (Levsin-Sl) 0.125 MG TAB.SUBL 1 TAB SL Q4P PRN abdominal pain Metoprolol Tartrate (Lopressor) 50 MG TABLET 1.5 TAB PO BID BP (Reported) Mirtazapine 7.5 MG TABLET 7.5 MG PO AT BEDTIME depression/sleep Multivitamin (One Daily Multivitamin) 1 EACH TABLET 1 TAB PO DAILY vitamin supplement Naltrexone HCl 50 MG TABLET 1 TAB PO DAILY ETOH (Reported) Ondansetron (Zofran Odt) 4 MG TAB.RAPDIS 1 TAB SL TID PRN n/v Peg 3350/Na Sulf,Bicarb,Cl/KCl (Golytely Solution) 236-22.74G SOLN.RECON 1 UNIT PO X1 PRN CONSTIPATION Polyethylene Glycol 3350 (Miralax) 17 GRAM/DOSE POWDER 17 GM PO BID PRN CONSTIPATION mix with water, juice, soda, coffee or tea Prednisolone 15 MG/5 ML SOLUTION 10 ML PO QDAY bronchitis Sennosides (Senna) 8.6 MG TABLET 1 TAB PO DAILY PRN constipation Sildenafil Citrate (Viagra) 50 MG TABLET 1 TAB PO AD PRN ED (Reported) 1 hour before sexual activity Thiamine HCl (B-1) 100 MG TABLET 2 TAB PO DAILY SUPPLEMENT (Reported) Triage Note: 78 Y/O MALE C/O "NOT FEELING GOOD" TODAY. WAS IN ED YESTERDAY AND WAS TOLD TO LOWER METOPROLOL TO 50MG (FROM 75MG) - TOOK 50MG THIS MORNING AND STARTED TO NOT FEEL WELL. B/P 88/61 Triage Nurses Notes Reviewed? yes Onset: Gradual Duration: hour(s): Timing: recent history Injury Environment: home HPI: 78-year-old male with hx of COPD, HTN, afib, diabetes presents to ED complaining of not feeling well this morning. Patient states "I just don't feel good". Patient reports dizziness. Patient has been here in the emergency department the past 2 days for hypotension and associated weakness and presyncope. Yesterday the patient's metoprolol dose was reduced from 75 mg BID to 50mg BID. The patient states that he has reduced his blood pressure dose however his symptoms are persistent. The patient has not followed up with his primary [facility] yet. The patient denies syncope, fall, headache , chest pain, abdominal pain, vomiting, diarrhea. (Chandni Burroughs) Past History Travel History Traveled to [place] past 21 day No Medical History Any Pertinent Medical History? 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 FATHER ([place], [place]). Hx Contributory? No (Chandni Burroughs) Review of Systems Review of Systems Constitutional: Reports: see HPI. EENTM: Reports: no symptoms. Respiratory: Reports: no symptoms. Cardiovascular: Reports: see HPI. GI: Reports: no symptoms. Genitourinary: Reports: no symptoms. Musculoskeletal: Reports: no symptoms. Skin: Reports: no symptoms. Neurological/Psychological: Reports: no symptoms. Hematologic/Endocrine: Reports: no symptoms. Immunologic/Allergic: Reports: no symptoms. All Other Systems: Reviewed and Negative (Chandni Burroughs) Physical Exam Physical Exam General Appearance: well developed/nourished, no apparent distress, alert, awake Head: atraumatic, normal appearance Eyes: Bilateral: normal appearance, PERRL, EOMI. 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 No CVA/TIA Diagnosis: No Sepsis Present: No Sepsis Focused Exam Completed? No (Chandni Burroughs) Progress Differential Diagnoses I considered the following diagnoses in my evaluation of the patient: [ Hypotension, orthostasis, dehydration, ADR] Plan of Care: Orders Procedure Date/time Status Consistent Carbohydrate 2 06/07 D Active MISTAKE 06/07 1028 Active EKG 06/07 1028 Active Patient arrives with low blood pressure, heart rate is irregular and at times bradycardic upper 40s-50s. Patient is taking metoprolol which is likely responsible for these vital signs. He has had recent chest x-ray and labs within the past 24 hours for the same symptoms. Despite decreased dose of beta hillary here in the emergency department his symptoms are persistent. Without any intervention the patient's blood pressure has improved. Patient is requesting a meal, he ambulatory without difficulty in and out of his room. Orthostatic vital signs are negative. I spoke with nurse from the [place] and made this patient an appointment for 3:30PM for further medication adjustment. This patient agrees to follow-up with primary care to adjust his medications. Discussed all findings with Dr. Ren who agrees with this plan. Initial ED EKG: atrial fibrillation rate 53bpm Prior EKG: unchanged (06/06/18) (Yolanda BLOOM,Chandni Estrella) Departure Departure Disposition: HOME OR SELF CARE Condition: Stable Clinical Impression Primary Impression: Hypotension Secondary Impressions: Dizziness Referrals: Carmina Euceda MD (PCP/Family) Additional Instructions: A doctor will see you at the [place] at [address] today, [address] where you normally go. You medication will require adjustment due to your low blood pressure and low heart rate. Return with worsening symptoms or concerns. Please note that there might be incidental findings in your evaluation that are unrelated to the current emergency department visit. Please notify your primary care doctor about this emergency department visit in order to obtain and review all of the testing performed so that these incidental findings can be monitored as needed. If you had an x-ray performed, please understand that some fractures may not be seen on the initial set of x-rays. If your symptoms persist you might need a repeat set of x-rays to check for such a fracture. If you had a laceration evaluated, please understand that foreign bodies such as glass or wood may not be visible to the naked eye or on plain x-rays. If the wound becomes red, swollen, increasingly more painful or if there is any drainage from the wound, please have it reevaluated by a physician for the possibility of a retained foreign body. If you're unable to follow up as outlined in the discharge instructions please return to the emergency department. Thank you for choosing the Emergency Department for your care. It was a pleasure to serve you today. Departure Forms: Customer Survey General Discharge Information (Yolanda BLOOM,Chandni Estrella) PA/JD EDWARDS Co-Sign Statement Statement: ED Attending supervision documentation- [x] I saw and evaluated the patient. I have also reviewed all the pertinent lab results and diagnostic results. I agree with the findings and the plan of care as documented in the PA's/JD EDWARDS's documentation. Patient with intermittent hypotension, feeling well today. Attempted altering patient's medications yesterday. Arrangements for [facility] follow up today. [] I have reviewed the ED Record and agree with the PA's/JD EDWARDS's documentation. [] Additions or exceptions (if any) to the PAs/JD EDWARDS's note and plan are summarized below: [] (Mikal SHERWOOD, Timoteo) Critical Care Note Critical Care Note Critical Care Time: non-applicable (Chandni Burroughs)
[2018-06-07 13:08] VITALS: BP 133/68
== END 2018-06-07 13:33 ==
LOC: ERH 09:57
DX: I95.9 Hypotension, unspecified (principal); R42 Dizziness and giddiness; I10 Essential (primary) hypertension; J44.9 Chronic obstructive pulmonary disease, unspecified; I48.91 Unspecified atrial fibrillation; Z79.01 Long term (current) use of anticoagulants